=== PATIENT | male | born 1965 | race Caucasian/White ===

== ENCOUNTER 2017-08-07 06:02 | Emergency (ER) | payer MEDICAID ==
[~2017-08-07 06:02] MED LIST: AZITHROMYCIN 250 MG TAB PO SCH
[2017-08-07 06:09] VITALS: RESP 20; O2SAT 91
[2017-08-07] MEDS ORDERED: IPRATROPIUM/ALBUTEROL 3 ML DEYVIAL ONE (06:18)
[2017-08-07] MEDS ORDERED: predniSONE 20 MG TAB PO ONE (06:23)
--- NOTE | 2017-08-07 06:24 | EDPHY ---
H & P Stated Complaint: SOB, cough - Medical/Surgical History Hx Asthma: No Hx Chronic Respiratory Disease: No Hx Cardiac Disease: Yes Hx Renal Disease: No Hx Cirrhosis: No Hx Alcoholism: Yes Hx HIV/AIDS: No Hx Splenectomy or Spleen Trauma: No Other PMH: hepais C, hypertension, back/neck. bipolar, manic depressive, psychoaffective. alcohol abuse - Social History Smoking Status: Heavy smoker HPI/ROS: Chief Complaint: Cough, shortness of breath HPI: 52-year-old homeless male presenting with 2-3 days of worsening cough, productive of yellow to greenish sputum, occasionally red tinged. No subjective fevers or chills. He woke this morning with some difficulty breathing and feeling that he can't catch air. Does not have a history of the same. Has never been diagnosed with COPD. No chest pain. No nausea or vomiting. Has a history of a multi pack-year chronic smoking and alcohol use. ROS: 10 point Review of Systems is negative except as noted in the HPI. PMH: Hepatitis-C, schizoaffective disorder Social History: Positive smoking, daily heavy alcohol, occasional marijuana Family History: non-contributory Physical Exam: Gen: Awake, Alert, No Distress HEENT: Nose: no rhinorrhea Eyes: PERRLA, EOMI Mouth: Moist mucosa Neck: Supple, no JVD Chest: nontender, diffuse expiratory wheezing with diminished breath sounds, no focal rales or rhonchi Heart: S1, S2 normal, no murmur Abd: Soft, non-tender, no guarding Back: no CVA tenderness, no midline tenderness Ext: no edema, non-tender Skin: no rash Neuro: CN II-XII intact, Sensation grossly intact, Strength 5/5 in bilateral upper and lower extremities (Aquiles Radford) Constitutional: Initial Vital Signs Temperature (C) 36.9 C 08/07/17 06:06 Heart Rate 103 H 08/07/17 06:06 Respiratory Rate 20 08/07/17 06:06 Blood Pressure 171/103 H 08/07/17 06:06 O2 Sat (%) 91 L 08/07/17 06:06 O2 Delivery Mode Room Air Allergies/Adverse Reactions: codeine Allergy (Verified 08/07/17 06:05) ziprasidone [From Geodon] Allergy (Verified 08/07/17 06:05) Home Medications: Medication Instructions Recorded Azithromycin [Zithromax] 250 mg PO DAILY #6 tab 08/07/17 Inderal LA 08/07/17 Medical Decision Making ED Course/Re-evaluation: 52-year-old male with likely undiagnosed COPD presenting with wheezing and cough. Will get a chest x-ray to rule out infiltrate. I am giving prednisone and a DuoNeb. Patient is satting 91% on room air. Chest x-ray consistent with bronchitis with a questionable right lower lobe infiltrate. I have ordered doxycycline 100 mg for him. Patient has received his steroids and is in process with DuoNeb. He is signed out Dr. Haskins pending re-evaluation after his steroids have had an effect. (Aquiles Radford) Other Provider: Patient was signed out to me by Dr. Radford at 0700, with suspicion for bronchitis /COPD. Patient was treated with steroids, doxy and neb. On re-evaluation at 0820, patient is comfortable and maintaining pulse ox of 92% on RA with ambulation. I think he is safe for outpatient management. He may benefit from further steroids, but given history of bipolar and schizo, I am hesitant to provide a burst without close observation, which he is unlikely to be able to manage. (Hill Haskins) - Data Points Medications Given: Discontinued Medications Albuterol/Ipratropium (Duoneb) 3 ml IH EDNOW ONE Stop: 08/07/17 06:28 Last Admin: 08/07/17 06:29 Dose: 3 ml Doxycycline Hyclate (Doxycycline Hyclate) 100 mg PO EDNOW ONE PRN Reason: Protocol Stop: 08/07/17 06:45 Last Admin: 08/07/17 06:56 Dose: 100 mg Prednisone (Prednisone) 60 mg PO EDNOW ONE Stop: 08/07/17 06:24 Last Admin: 08/07/17 06:28 Dose: 60 mg Departure - Departure Disposition: Home, Routine, Self-Care Clinical Impression: Acute bronchitis Condition: Good Instructions: Acute Bronchitis (ED) Additional Instructions: Follow-up with your primary doctor within 72 hours. Return to the ED for fever , shortness of breath, chest pain or other concerns. Referrals: NONE *PRIMARY CARE P,. [Primary Care Provider] - As per Instructions Prescriptions: Azithromycin [Zithromax] 250 mg PO DAILY #6 tab
[2017-08-07] MEDS ORDERED: IPRATROPIUM/ALBUTEROL 3 ML DEYVIAL IH ONE (06:27)
[2017-08-07] MEDS ORDERED: DOXYCYCLINE HYCLATE 100 MG CAP/TAB PO ONE (06:44)
[2017-08-07 08:45] VITALS: BP 163/111; PULSE 93; TEMP 98.8
== END 2017-08-07 08:50 | disposition home or self-care (01) ==
DX: J20.9 Acute bronchitis, unspecified (principal); I10 Essential (primary) hypertension; F17.200 Nicotine dependence, unspecified, uncomplicated

== ENCOUNTER 2017-08-16 03:47 | Emergency (ER) | payer MEDICAID ==
--- NOTE | 2017-08-16 03:53 | EDPHY ---
H & P Stated Complaint: Epistaxis HPI/ROS: HPI The patient presents with nose bleed which began earlier tonight. He was brought in by ambulance after being found outside of the [facility] with a nose bleed which awoke him from sleep. It has been constant, dripping blood for the last 1 hr without any clots. He has no prior history of similar. He does admit to drinking alcohol tonight. He does not have any pain.. REVIEW OF SYSTEMS Constitutional: No fever, no chills. Eyes: No discharge. ENT: No sore throat. Cardiovascular: No chest pain, no palpitations. Respiratory: No cough, no shortness of breath. Gastrointestinal: No abdominal pain, no vomiting. Genitourinary: No hematuria. Musculoskeletal: No back pain. Skin: No rashes. Neurological: No headache. PMHx: Hypertension, hepatitis-C, schizoaffective disorder Soc Hx: Homelessness, alcohol abuse PHYSICAL General Appearance: Alert, no distress Eyes: Pupils equal and round no pallor or injection ENT, Mouth: Mucous membranes moist, bilateral epistaxis which is minimal at this point Respiratory: There are no retractions, lungs are clear to auscultation Cardiovascular: Regular rate and rhythm Gastrointestinal: Abdomen is soft and non-tender, no masses, bowel sounds normal Neurological: A&O, moves all extremities Skin: Warm and dry, no rashes Musculoskeletal: Neck is supple non tender Extremities: symmetrical, full range of motion Psychiatric: Patient is oriented X 3, there is no agitation Source: Patient, EMS Exam Limitations: No limitations - Medical/Surgical History Hx Asthma: No Hx Chronic Respiratory Disease: No Hx Cardiac Disease: Yes Hx Renal Disease: No Hx Cirrhosis: No Hx Alcoholism: Yes Hx HIV/AIDS: No Hx Splenectomy or Spleen Trauma: No Other PMH: hepais C, hypertension, back/neck. bipolar, manic depressive, psychoaffective. alcohol abuse - Social History Smoking Status: Heavy smoker Constitutional: Initial Vital Signs Temperature (C) 36.7 C 08/16/17 04:03 Heart Rate 106 H 08/16/17 04:03 Respiratory Rate 18 08/16/17 04:03 Blood Pressure 126/102 H 08/16/17 04:03 O2 Sat (%) 92 08/16/17 04:03 O2 Delivery Mode Room Air Allergies/Adverse Reactions: codeine Allergy (Verified 08/16/17 04:06) ziprasidone [From Geodon] Allergy (Verified 08/16/17 04:06) Home Medications: Medication Instructions Recorded Inderal LA 08/07/17 HCTZ (*) 08/16/17 Prozac 10 MG (*) 08/16/17 Seroquel 08/16/17 Medical Decision Making Differential Diagnosis: 52-year-old homeless gentleman with past medical history of hypertension, hepatitis-C presents brought in by ambulance for bilateral epistaxis over the last 1 hr which is fairly minimal and controlled currently. Nasal clamps were placed upon patient's arrival. Vital signs were normal. I was able to visualize his anterior naris and there is no active bleeding. I cannot exactly localize is where the bleeding is coming from because of some dried blood in his nose. I suspect anterior epistaxis. He was given Afrin and nasal clamps were placed. His bleeding stopped. However, while in the waiting room the bleeding recurred. As he returned back to the emergency department. Nasal packing with TXA was placed. This state in place for about 30 min and then was removed. After this he had no ongoing bleeding. He will be discharged home. Hemoglobin was checked and was unremarkable. - Data Points Laboratory Results: 08/16/17 04:24 POC Hgb 11.9 gm/dL L gm/dL (13.7-17.5) POC Hct 35 % L % (40-51) POC Sodium 140 mEq/L mEq/L (134-144) POC Potassium 3.4 mEq/L mEq/L (3.3-5.0) POC Chloride 99 mEq/L mEq/L (97-110) POC BUN 11 mg/dL mg/dL (7-23) POC Creatinine 0.9 mg/dL mg/dL (0.7-1.3) POC Glucose 146 mg/dL H mg/dL (70-100) Medications Given: Discontinued Medications Oxymetazoline HCl (Afrin Nasal [place]) 2 sprays EACHNARE EDNOW ONE Stop: 08/16/17 04:11 Last Admin: 08/16/17 04:13 Dose: 2 sprays Tranexamic Acid (Cyklokapron) 500 mg TP EDNOW ONE Stop: 08/16/17 04:57 Last Admin: 08/16/17 05:08 Dose: 500 mg Point of Care Test Results: 08/16/17 04:24 POC Sodium 140 POC Potassium 3.4 POC Chloride 99 POC BUN 11 POC Creatinine 0.9 POC Glucose 146 H Departure - Departure Disposition: Home, Routine, Self-Care Clinical Impression: Acute anterior epistaxis Condition: Good Instructions: Nosebleed (ED) Additional Instructions: I recommend that you use Vaseline inside of your nose to help keep it moist and prevent any nose bleeds. If it bleeds again I would recommend using the Afrin and a nasal clamp. Referrals: [facility],. [Clinic] - As per Instructions
[2017-08-16] MEDS ORDERED: OXYMETAZOLINE 30 ML NASAL SPRAY EACHNARE ONE (04:10)
[2017-08-16 04:44] VITALS: RESP 16; TEMP 98.2
[2017-08-16] MEDS ORDERED: TRANEXAMIC ACID 1,000 MG/10 ML VIAL TP ONE (04:56)
[2017-08-16 06:11] VITALS: BP 124/74; PULSE 74; O2SAT 96
== END 2017-08-16 06:00 | disposition home or self-care (01) ==
LOC: EDUNIT#
DX: R04.0 Epistaxis (principal); I10 Essential (primary) hypertension; F17.200 Nicotine dependence, unspecified, uncomplicated
CPT/HCPCS: 82947-QW

== ENCOUNTER 2017-08-20 11:54 | Emergency (ER) | payer MEDICAID ==
[2017-08-20 12:01] VITALS: BP 149/94; PULSE 97; RESP 18; TEMP 99; O2SAT 93
[2017-08-20 12:35] LABS: PLATELET COUNT 96 10^3/uL (150-400)
[2017-08-20] MEDS ORDERED: SILVER NITRATE APPLICATOR 1 APPL TP ONE (12:37)
--- NOTE | 2017-08-20 12:47 | EDPHY ---
H & P Stated Complaint: Epistaxis HPI/ROS: Chief complaint: Nose bleed History of present illness: This is a 52-year-old male who presents to the emergency department for evaluation of a nosebleed. Reports the onset of symptoms a few hours prior to arrival. He states bleeding comes from the left nostril. He denies precipitating factors. He denies alleviating factors. He has tried to pinch off the nose. He was seen a week or so ago for similar in this emergency room. He states he generally does not have a history of nose bleeds and is concerned there is something more going on. He denies other associated signs or symptoms including no cold symptoms, no headache, no lightheadedness or dizziness, no other abnormal bruising or bleeding. - Personal History Current Tetanus Diphtheria and Acellular Pertussis (TDAP): Yes Tetanus Vaccine Date: 2010 - Medical/Surgical History Hx Asthma: No Hx Chronic Respiratory Disease: No Hx Cardiac Disease: Yes Hx Renal Disease: No Hx Cirrhosis: No Hx Alcoholism: Yes Hx HIV/AIDS: No Hx Splenectomy or Spleen Trauma: No Other PMH: hepais C, hypertension, back/neck. bipolar, manic depressive, psychoaffective. alcohol abuse - Social History Smoking Status: Heavy smoker - Physical Exam Exam: General: Alert, nontoxic Eyes: PERRLA ENT: No active bleeding from the nostrils. The left nare is irritated at Kiesselbach's plexus region, again no active bleeding from it. Cardiac: Regular rate and rhythm Respiratory: Lungs clear to auscultation bilaterally Skin: No abnormal bruising or bleeding noted Constitutional: Initial Vital Signs Temperature (C) 37.2 C 08/20/17 11:59 Heart Rate 97 08/20/17 11:59 Respiratory Rate 18 08/20/17 11:59 Blood Pressure 149/94 H 08/20/17 11:59 O2 Sat (%) 93 08/20/17 11:59 O2 Delivery Mode Room Air Allergies/Adverse Reactions: codeine Allergy (Verified 08/16/17 04:06) ziprasidone [From Geodon] Allergy (Verified 08/16/17 04:06) Home Medications: Medication Instructions Recorded Inderal LA 08/07/17 HCTZ (*) 08/16/17 Prozac 10 MG (*) 08/16/17 Seroquel 08/16/17 Medical Decision Making Procedures: Procedure: Epistaxis control. After verbal consent was obtained. The anterior epistaxis was identified. The patient was treated with Yoel-Synephrine, chemical cautery at Kiesselbach's plexus and placement of Merocel. Following the procedure the patient was re- examined and the bleeding was well controlled. The patient tolerated the procedure well. The procedure was performed by myself. ED Course/Re-evaluation: Patient seen under the supervision of my secondary supervising physician Dr. Esteban Peace. Patient presents to the emergency department for a nose bleed. He reports he is bleeding out of his left nostril. Yoel-Synephrine was instilled before I saw patient. There was no active bleeding when I saw patient. Patient is concerned for an underlying issue, blood studies were obtained, patient does have a thrombocytopenia. Kiesselbach's plexus was cauterized as it appeared to be the site of bleeding and patient was packed with Merocel. He was observed with no rebleeding. He is discharged. Home care is discussed. Return precautions are given. Differential Diagnosis: Included but not limited to anterior epistaxis, posterior epistaxis, coagulopathy - Data Points Laboratory Results: Laboratory Results 08/20/17 11:58 08/20/17 11:58 08/20/17 08/20/17 08/20/17 11:58 11:58 11:58 WBC 5.32 10^3/uL 10^3/uL (3.80-9.50) RBC 3.20 10^6/uL L 10^6/uL (4.40-6.38) Hgb 12.0 g/dL L g/dL (13.7-17.5) Hct 34.0 % L % (40.0-51.0) MCV 106.3 fL H fL (81.5-99.8) MCH 37.5 pg H pg (27.9-34.1) MCHC 35.3 g/dL g/dL (32.4-36.7) RDW 12.5 % % (11.5-15.2) Plt Count 96 10^3/uL L 10^3/uL (150-400) MPV 11.2 fL fL (8.7-11.7) Neut % (Auto) 67.3 % % (39.3-74.2) Lymph % (Auto) 22.9 % % (15.0-45.0) [place] % (Auto) 7.9 % % (4.5-13.0) Eos % (Auto) 0.6 % % (0.6-7.6) Baso % (Auto) 1.1 % % (0.3-1.7) Nucleat RBC Rel Count 0.0 % % (0.0-0.2) Absolute Neuts (auto) 3.58 10^3/uL 10^3/uL (1.70-6.50) Absolute Lymphs (auto) 1.22 10^3/uL 10^3/uL (1.00-3.00) Absolute Monos (auto) 0.42 10^3/uL 10^3/uL (0.30-0.80) Absolute Eos (auto) 0.03 10^3/uL 10^3/uL (0.03-0.40) Absolute Basos (auto) 0.06 10^3/uL 10^3/uL (0.02-0.10) Absolute Nucleated RBC 0.00 10^3/uL 10^3/uL (0-0.01) Immature Gran % 0.2 % % (0.0-1.1) Immature Gran # 0.01 10^3/uL 10^3/uL (0.00-0.10) PT 13.9 SEC SEC (12.0-15.0) INR 1.05 (0.83-1.16) APTT 30.6 SEC SEC (23.0-38.0) Sodium 142 mEq/L mEq/L (134-144) Potassium 3.6 mEq/L mEq/L (3.5-5.2) Chloride 103 mEq/L mEq/L (97-110) Carbon Dioxide 26 mEq/l mEq/l (22-31) Anion Gap 13 mEq/L mEq/L (8-16) BUN 8 mg/dL mg/dL (7-23) Creatinine 0.7 mg/dL mg/dL (0.7-1.3) Estimated GFR > 60 Glucose 115 mg/dL H mg/dL (70-100) Calcium 8.5 mg/dL mg/dL (8.5-10.4) Medications Given: Discontinued Medications Silver Nitrate/Potassium Nitrate (Silver Nitrate Applicator) 1 each TP EDNOW ONE Stop: 08/20/17 12:38 Last Admin: 08/20/17 12:39 Dose: 1 each Departure - Departure Disposition: Against Medical Advice Clinical Impression: Epistaxis, Thrombocytopenia Condition: Good Instructions: Nosebleed (ED) Additional Instructions: Follow-up with ENT for continued evaluation and care Place Vaseline into the nose multiple times daily as discussed You can also use a nasal saline spray Packing to be removed in 2 days Symptoms worsen or new symptoms develop return to the emergency room for recheck Referrals: NONE *PRIMARY CARE P,. [Primary Care Provider] - As per Instructions [facility],. [Clinic] - As per Instructions Silvio Chávez MD [Medical Doctor] - As per Instructions
[2017-08-20 12:49] LABS: INR 1.05 (0.83-1.16); PROTIME(PATIENT) 13.9 SEC (12.0-15.0)
== END 2017-08-20 13:31 | disposition left against medical advice (07) ==
LOC: EDUNIT#
PROC: 3E09XTZ Introduction of Destructive Agent into Nose, External Approach (ICD-10-PCS; principal; 2017-08-20)
DX: R04.0 Epistaxis (principal); D69.6 Thrombocytopenia, unspecified; F17.200 Nicotine dependence, unspecified, uncomplicated; I10 Essential (primary) hypertension

== ENCOUNTER 2017-08-20 15:16 | Emergency (ER) | payer MEDICAID ==
[2017-08-20 15:28] VITALS: TEMP 98.2
[2017-08-20] MEDS ORDERED: OXYMETAZOLINE 30 ML NASAL SPRAY ONE (16:35)
--- NOTE | 2017-08-20 16:50 | EDPHY ---
H & P Stated Complaint: Nose bleed - Personal History Current Tetanus/Diphtheria Vaccine: Yes Tetanus Vaccine Date: 2010 - Medical/Surgical History Hx Asthma: No Hx Chronic Respiratory Disease: No Hx Diabetes: No Hx Cardiac Disease: Yes Hx Renal Disease: No Hx Cirrhosis: No Hx Alcoholism: Yes Hx HIV/AIDS: No Hx Splenectomy or Spleen Trauma: No Other PMH: hepais C, hypertension, back/neck. bipolar, manic depressive, psychoaffective. alcohol abuse - Social History Smoking Status: Heavy smoker HPI/ROS: Chief complaint: Nose bleed History of present illness: This is a 52-year-old male who presents to the emergency department with EMS for nose bleed. He was seen just a few hours ago by myself. At that time he had a nosebleed on the left side that was tree. Bleeding appeared to have resolved. However now he is having significant bleeding from the right side. No other associated signs or symptoms. (Noah Lowry) - Physical Exam Exam: General: Alert, nontoxic ENT: Tympanic membranes, external auditory canals, external ears and surrounding soft tissue including over the mastoids are unremarkable. There is bleeding from the right naris. Packing in place in left naris. Oropharynx is not injected. There is no edema. There is no exudate. There is no asymmetry. The uvula is midline. No elevation of the tongue. There is no hoarseness, no drooling, no trismus, no stridor. Skin: No rashes. (Noah Lowry) Constitutional: Initial Vital Signs Temperature (C) 36.8 C 08/20/17 15:27 Heart Rate 91 08/20/17 15:27 Respiratory Rate 18 08/20/17 15:27 Blood Pressure 105/94 H 08/20/17 15:27 O2 Sat (%) 93 08/20/17 15:27 O2 Delivery Mode Room Air Allergies/Adverse Reactions: codeine Allergy (Verified 08/20/17 15:29) ziprasidone [From Geodon] Allergy (Verified 08/20/17 15:29) Home Medications: Medication Instructions Recorded Inderal LA 08/07/17 HCTZ (*) 08/16/17 Prozac 10 MG (*) 08/16/17 Seroquel 08/16/17 Medical Decision Making Procedures: Procedure: Epistaxis control. After verbal consent was obtained. Blood at both nares noted. The patient was treated with Yoel-Synephrine and bilateral 7.5 cm rhino rocket. Following the procedure the patient was re-examined and the bleeding was well controlled. The patient tolerated the procedure well. The procedure was performed by myself. ( Noah Lowry) ED Course/Re-evaluation: Patient seen under the supervision of my secondary supervising physician Dr. Silvio Whaley. Patient returns to the ER for nose bleed. It has been difficult to control. I have ultimately packed with bilateral 7.5 cm rhinorockets and bleeding appears controlled. Patient is observed for over an hour with no recurrence of bleeding. I have consulted with ALLYSON Bustamante. He is in agreement with plan. Patient will be discharged. He is to return in two days for removal of packing. Return precautions given. (Noah Lowry) Did not see this patient while he was in the emergency department. However his care was discussed with the PA while the patient was in the department. I agree with treatment plan and management. I am the secondary supervising physician (Silvio Whaley) Differential Diagnosis: Included but not limited to antior epistaxis, posterior epistaxis, coagulopathy (Noah Lowry) - Data Points Medications Given: Discontinued Medications Hydrocodone Bitart/Acetaminophen ([place] 5/325) 2 tab PO EDNOW ONE Stop: 08/20/17 17:53 Last Admin: 08/20/17 17:55 Dose: 2 tab Departure - Departure Disposition: Home, Routine, Self-Care Clinical Impression: Epistaxis Condition: Good Instructions: Nosebleed (ED) Additional Instructions: Follow-up with ENT for continued evaluation and care Packing to be removed in 2 days If symptoms worsen or new symptoms develop return to the emergency room for recheck Referrals: NONE *PRIMARY CARE P,. [Primary Care Provider] - As per Instructions Silvio Chávez MD [Medical Doctor] - As per Instructions
[2017-08-20] MEDS ORDERED: HYDROCODONE/APAP 5/325 TAB ONE (17:47)
[2017-08-20] MEDS ORDERED: HYDROCODONE/APAP 5/325 TAB PO ONE (17:52)
[2017-08-20 18:34] VITALS: BP 133/64; PULSE 97; RESP 16; O2SAT 98
== END 2017-08-20 18:32 | disposition home or self-care (01) ==
LOC: EDUNIT#
PROC: 3E09XGC Introduction of Other Therapeutic Substance into Nose, External Approach (ICD-10-PCS; principal; 2017-08-20)
DX: R04.0 Epistaxis (principal); I10 Essential (primary) hypertension; F17.200 Nicotine dependence, unspecified, uncomplicated

== ENCOUNTER 2017-09-30 00:51 | Emergency (ER) | payer MEDICAID ==
[2017-09-30] MEDS ORDERED: IPRATROPIUM/ALBUTEROL 3 ML DEYVIAL IH ONE (00:55)
[2017-09-30 00:57] VITALS: RESP 16; TEMP 99.9
[2017-09-30] MEDS ORDERED: ACETAMINOPHEN 500 MG TAB ONE (00:58)
[2017-09-30] MEDS ORDERED: ACETAMINOPHEN 500 MG TAB PO ONE (00:59)
[2017-09-30] MEDS ORDERED: IBUPROFEN 600 MG TAB PO ONE (01:02)
--- NOTE | 2017-09-30 01:02 | CPEKG ---
Heart Rate: 109 RR Interval: 550 P-R Interval: 128 QRSD Interval: 104 QT Interval: 344 QTC Interval: 464 P [place]: 70 QRS [place]: 44 T Wave [place]: 51 EKG Severity - OTHERWISE NORMAL ECG - EKG Impression: SINUS TACHYCARDIA Electronically Signed By: Aida Gunn 30-Sep-2017 06:04:24
[2017-09-30] MEDS ORDERED: NS 1,000 ML IV ONE (01:04)
[2017-09-30 01:09] LABS: PLATELET COUNT 150 10^3/uL (150-400)
[2017-09-30] MEDS ORDERED: ONDANSETRON 4MG PREPACK#2 BTL TAKEHOME ONE (03:49)
[2017-09-30] MEDS ORDERED: ALBUTEROL INH PREPACK MDI TAKEHOME ONE (04:02)
[2017-09-30] MEDS ORDERED: BENZONATATE 100 MG CAP PO ONE (04:02)
--- NOTE | 2017-09-30 04:02 | EDPHY ---
H & P Stated Complaint: resp diff Source: Patient, EMS - Personal History Current Tetanus/Diphtheria Vaccine: Unsure Current Tetanus Diphtheria and Acellular Pertussis (TDAP): Unsure Tetanus Vaccine Date: 2010 - Medical/Surgical History Hx Asthma: No Hx Chronic Respiratory Disease: No Hx Diabetes: No Hx Cardiac Disease: Yes Hx Renal Disease: No Hx Cirrhosis: No Hx Alcoholism: Yes Hx HIV/AIDS: No Hx Splenectomy or Spleen Trauma: No Other PMH: hepais C, hypertension, back/neck. bipolar, manic depressive, psychoaffective. alcohol abuse - Social History Smoking Status: Heavy smoker Time Seen by Provider: 09/30/17 00:54 HPI/ROS: HPI The patient presents brought in by ambulance for cough and chest pain. The patient says he has been sick for about a week with cough and chest pain. He feels slightly short of breath. He is a heavy smoker but is only been able to smoke a few cigarettes a day currently. He says the pain is present only when he coughs that is is relieved with rest. It is achy in nature. He has had a nonproductive cough. He also reports rhinorrhea. REVIEW OF SYSTEMS Constitutional: Subjective fever Eyes: No discharge. ENT: No sore throat. Cardiovascular: Positive for chest pain, no palpitations. Respiratory: See HPI Gastrointestinal: No abdominal pain, no vomiting. Genitourinary: No hematuria. Musculoskeletal: No back pain. Skin: No rashes. Neurological: No headache. PMHx: Questionable underlying COPD, hypertension, hepatitis-C, bipolar disorder Soc Hx: Homeless PHYSICAL General Appearance: Alert, no distress Eyes: Pupils equal and round no pallor or injection ENT, Mouth: Mucous membranes moist Respiratory: There are no retractions, lungs are clear to auscultation Cardiovascular: Regular rate and rhythm Gastrointestinal: Abdomen is soft and non-tender, no masses, bowel sounds normal Neurological: A&O, moves all extremities Skin: Warm and dry, no rashes Musculoskeletal: Neck is supple non tender Extremities: symmetrical, full range of motion Psychiatric: Patient is oriented X 3, there is no agitation (Riguzzi,Aida) Constitutional: Initial Vital Signs Temperature (C) 37.7 C 09/30/17 00:53 Heart Rate 100 09/30/17 00:53 Respiratory Rate 16 09/30/17 00:53 Blood Pressure 154/107 H 09/30/17 00:53 O2 Sat (%) 87 L 09/30/17 00:53 O2 Delivery Mode Room Air Allergies/Adverse Reactions: codeine Allergy (Verified 08/20/17 15:29) ziprasidone [From Geodon] Allergy (Verified 08/20/17 15:29) Home Medications: Medication Instructions Recorded Inderal LA 08/07/17 HCTZ (*) 08/16/17 Prozac 10 MG (*) 08/16/17 Seroquel 08/16/17 Medical Decision Making - Diagnostics EKG Interpretation: EKG: Complete interpretation has been separately recorded in the [facility] archive. Summary impression: Normal sinus rhythm (Aida Gunn) Imaging Results: Chest x-ray two view shows peribronchial thickening, no infiltrates, interpreted by me, radiology interpretation is pending. (Aida Gunn) Differential Diagnosis: This is a 52-year-old homeless man with history of heavy smoking, possible underlying COPD, hypertension, hepatitis-C, bipolar disorder who presents brought in by ambulance for cough and chest pain. Here on arrival, he is febrile, and slightly hypoxic. He was given a DuoNeb with improvement in his respirations. Chest x-ray was performed and showed peribronchial thickening with no obvious infiltrate. Labs were drawn and RSV was positive. Other labs were unremarkable. He was given antipyretics for his fever this improved his symptoms significantly. He will be discharged home with albuterol inhaler and Tessalon Perles. As I feel his symptoms are likely related to RSV with bronchitis. He is comfortable with this plan. Differential diagnoses considered include ACS, PE, pneumonia, influenza. ( Aida Gunn) Other Provider: I received a call from the radiologist at 0830 regarding this patient who was discharged several hours ago. CXR apparently shows bilateral PNA. I reviewed the chart but document is currently incomplete. Vitals do not reveal hypoxia. I asked the charge nurse to call the patient and inform him of the CXR result and call in azithromycin. Unfortunately, the patient is transient and did not list any contact information. I will pass this information onto the case mgr. (Hill Haskins) - Data Points Laboratory Results: Laboratory Results 09/30/17 00:54 09/30/17 01:00 Medications Given: Discontinued Medications Acetaminophen (Tylenol) 1,000 mg PO EDNOW ONE Stop: 09/30/17 01:00 Last Admin: 09/30/17 01:14 Dose: Not Given Albuterol Sulfate (Proventil Inh Prepack) 1 mdi TAKEHOME EDNOW ONE Stop: 09/30/17 04:03 Last Admin: 09/30/17 04:11 Dose: 1 mdi Albuterol/Ipratropium (Duoneb) 3 ml IH EDNOW ONE Stop: 09/30/17 00:56 Last Admin: 09/30/17 01:10 Dose: 3 ml Benzonatate (Tessalon Pearles) 200 mg PO EDNOW ONE Stop: 09/30/17 04:03 Last Admin: 09/30/17 04:10 Dose: 200 mg Sodium Chloride (Ns) 1,000 mls @ 0 mls/hr IV EDNOW ONE; Wide Open PRN Reason: Protocol Stop: 09/30/17 01:05 Last Admin: 09/30/17 01:12 Dose: 1,000 mls Ibuprofen (Motrin) 600 mg PO EDNOW ONE Stop: 09/30/17 01:03 Last Admin: 09/30/17 01:10 Dose: 600 mg Departure - Departure Disposition: Home, Routine, Self-Care Clinical Impression: Chest pain, Cough, RSV infection Condition: Good Instructions: Respiratory Syncytial Virus (ED) Referrals: Bharti Nielsen MD [Doctor of Osteopathy] - As per Instructions
[2017-09-30 04:26] VITALS: BP 109/72; PULSE 97; O2SAT 95
== END 2017-09-30 04:26 | disposition home or self-care (01) ==
LOC: EDUNIT#
DX: R07.9 Chest pain, unspecified (principal); B97.4 Respiratory syncytial virus as the cause of diseases classified elsewhere; I10 Essential (primary) hypertension; F17.210 Nicotine dependence, cigarettes, uncomplicated; E86.9 Volume depletion, unspecified

== ENCOUNTER 2017-09-30 18:42 | Inpatient (IN) | payer MEDICAID ==
[2017-09-30] MEDS ORDERED: IPRATROPIUM/ALBUTEROL 3 ML DEYVIAL IH ONE (19:01)
--- NOTE | 2017-09-30 19:11 | EDPHY ---
General Narrative: CHIEF COMPLAINT: Cough, "I can't get better sleeping in the cold" HISTORY OF PRESENT ILLNESS: Patient complains of "I can't get better sleep and in the cold, I need to be admitted." He reports ongoing cough or worsening symptoms. They originally started 2 days ago. He was seen here in this department late last night. He is discharged home with a diagnosis of RSV. Chest x-ray reportedly came back as a positive result for pneumonia this morning. Attempts were made to contact him with a unable to do so. He reports being discharged home with albuterol inhaler and "2 cough pills." He is taking medications with no improvement. He says that he is not getting better because he is sleeping out in the cold and feels as though this is worsening his symptoms. No chest pain but does have a painful, productive cough. He will not provide any other information to me otherwise. No other associated complaints or modifying factors obtainable REVIEW OF SYSTEMS: Ten systems reviewed and are negative unless otherwise noted in the HPI PCP: [facility]" SPECIALISTS: None PAST MEDICAL HISTORY: Denies PAST SURGICAL HISTORY: No recent surgeries SOCIAL HISTORY: Daily alcohol and tobacco use. Homeless FAMILY HISTORY: Noncontributory EXAMINATION General Appearance: Alert, no distress, unkempt Head: normocephalic, atraumatic Eyes: Pupils equal and round, no conjunctival pallor or injection ENT, Mouth: Mucous membranes moist. Airway is patent Neck: Normal inspection, supple, non-tender Respiratory: Mild rhonchi and expiratory wheezing, left greater than right. My consolidation in the left lower lobe. No retractions or distress. Cardiovascular: Tachycardic rate of 106 beats per minute. Regular rhythm. No murmur Gastrointestinal: Abdomen is soft and nontender Back: non-tender, no bony abnormalities Neurological: A&O, nonfocal, normal gait. Strength is symmetric in all 4 limbs. Skin: Grossly intact. Warm and dry, no rash. No petechiae or purpura Extremities: Nontender, no pedal edema. symmetric range of motion of the extremities. Psychiatric: Mood and affect normal DIFFERENTIAL DIAGNOSES: Including but not limited to community-acquired pneumonia, sepsis, RSV pneumonitis, bronchitis MDM: 7:11 p.m. Cough with worsening symptoms over the past 24 hr. The patient has been on albuterol but no other medications. There is documentation that the chest x- ray was read as pneumonia early this morning but there was no way to contact the patient despite attempts to do so. Thus he has not been on antibiotics today. RSV was positive. Influenza negative. He has mild tachycardia with a leukocytosis last night. Thus I have ordered a septic work. He is in no acute distress with vital signs stable other than mild tachycardia. I have also ordered a nebulizer treatment. 7:45 p.m. CBC reveals no leukocytosis. It is actually improved from his visit last night. Chest x-ray does show a mild left lower lobe pneumonia to me, without the aide of the radiologist. Lactic acid is within normal limits. Remainder of labs are pending. 8:10 p.m. Chest x-ray has been read by radiologist as left lower lobe pneumonia. There is no evidence of sepsis, but the patient does remain hypoxic. He ranges from 85-88% on room air and this is while resting. He will thus require admission to the hospital for supplemental nasal oxygen. He remains tachycardic but not tachypneic. He is not febrile. He is not hypotensive. He has no leukocytosis. Treating with Rocephin and Zithromax. I will discuss with hospitalist. 8:15 p.m. Case discussed with Dr. Noriega. He requests admission to his service, medical- surgical bed, observation status. The patient has been admitted in stable condition. SUPERVISION: Patient was independently examined, but I discussed the case with my secondary supervising physician Dr. Hernadez - Diagnostics Imaging Results: Imaging Impressions Chest X-Ray 09/30/17 19:08 Impression: 1. Persistent findings compatible with left lower lobe pneumonia and less prominent right lower lobe atelectasis or pneumonia. 2. Airways disease that could reflect associated bronchitis or viral pneumonitis. - History Smoking Status: Heavy smoker - Objective Vital Signs: Initial Vital Signs Temperature (C) 99.1 F 09/30/17 18:48 Heart Rate 108 H 09/30/17 18:48 Respiratory Rate 16 09/30/17 18:48 Blood Pressure 172/95 H 09/30/17 18:48 O2 Sat (%) 95 09/30/17 18:48 O2 Delivery Mode Room Air Allergies/Adverse Reactions: codeine Allergy (Verified 08/20/17 15:29) ziprasidone [From Geodon] Allergy (Verified 08/20/17 15:29) Home Medications: Medication Instructions Recorded Inderal LA 08/07/17 HCTZ (*) 08/16/17 Prozac 10 MG (*) 08/16/17 Seroquel 08/16/17 Laboratory Results: Laboratory Results 09/30/17 19:28 09/30/17 19:28 09/30/17 09/30/17 09/30/17 19:28 19:28 19:28 WBC RBC Hgb Hct MCV MCH MCHC RDW Plt Count MPV Neut % (Auto) Lymph % (Auto) [place] % (Auto) Eos % (Auto) Baso % (Auto) Nucleat RBC Rel Count Absolute Neuts (auto) Absolute Lymphs (auto) Absolute Monos (auto) Absolute Eos (auto) Absolute Basos (auto) Absolute Nucleated RBC Immature Gran % Immature Gran # PT 15.2 SEC H SEC (12.0-15.0) INR 1.18 H (0.83-1.16) APTT 30.3 SEC SEC (23.0-38.0) VBG Lactic Acid 1.3 mmol/L mmol/L (0.7-2.1) Sodium 133 mEq/L L mEq/L (135-145) Potassium 3.8 mEq/L mEq/L (3.5-5.2) Chloride 99 mEq/L mEq/L (97-110) Carbon Dioxide 21 mEq/l L mEq/l (22-31) Anion Gap 13 mEq/L mEq/L (8-16) BUN 5 mg/dL L mg/dL (7-23) Creatinine 0.5 mg/dL L mg/dL (0.7-1.3) Estimated GFR > 60 Glucose 110 mg/dL H mg/dL (70-100) Calcium 7.8 mg/dL L mg/dL (8.5-10.4) Total Bilirubin 2.1 mg/dL H mg/dL (0.1-1.4) Conjugated Bilirubin 1.7 mg/dL H mg/dL (0.0-0.5) Unconjugated Bilirubin 0.4 mg/dL mg/dL (0.0-1.1) Ethyl Alcohol 279 mg/dL H mg/dL (0-10) 09/30/17 19:28 WBC 8.69 10^3/uL 10^3/uL (3.80-9.50) RBC 3.11 10^6/uL L 10^6/uL (4.40-6.38) Hgb 11.8 g/dL L g/dL (13.7-17.5) Hct 32.4 % L % (40.0-51.0) MCV 104.2 fL H fL (81.5-99.8) MCH 37.9 pg H pg (27.9-34.1) MCHC 36.4 g/dL g/dL (32.4-36.7) RDW 11.8 % % (11.5-15.2) Plt Count 114 10^3/uL L 10^3/uL (150-400) MPV 10.2 fL fL (8.7-11.7) Neut % (Auto) 80.1 % H % (39.3-74.2) Lymph % (Auto) 10.7 % L % (15.0-45.0) Bradley % (Auto) 8.4 % % (4.5-13.0) Eos % (Auto) 0.0 % L % (0.6-7.6) Baso % (Auto) 0.3 % % (0.3-1.7) Nucleat RBC Rel Count 0.0 % % (0.0-0.2) Absolute Neuts (auto) 6.96 10^3/uL H 10^3/uL (1.70-6.50) Absolute Lymphs (auto) 0.93 10^3/uL L 10^3/uL (1.00-3.00) Absolute Monos (auto) 0.73 10^3/uL 10^3/uL (0.30-0.80) Absolute Eos (auto) 0.00 10^3/uL L 10^3/uL (0.03-0.40) Absolute Basos (auto) 0.03 10^3/uL 10^3/uL (0.02-0.10) Absolute Nucleated RBC 0.00 10^3/uL 10^3/uL (0-0.01) Immature Gran % 0.5 % % (0.0-1.1) Immature Gran # 0.04 10^3/uL 10^3/uL (0.00-0.10) PT INR APTT VBG Lactic Acid Sodium Potassium Chloride Carbon Dioxide Anion Gap BUN Creatinine Estimated GFR Glucose Calcium Total Bilirubin Conjugated Bilirubin Unconjugated Bilirubin Ethyl Alcohol Medications Given: Discontinued Medications Albuterol/Ipratropium (Duoneb) 3 ml IH EDNOW ONE Stop: 09/30/17 19:02 Last Admin: 09/30/17 19:50 Dose: 3 ml Azithromycin (Zithromax) 500 mg PO EDNOW ONE PRN Reason: Protocol Stop: 09/30/17 19:42 Last Admin: 09/30/17 19:49 Dose: 500 mg Sodium Chloride (Ns) 1,000 mls @ 0 mls/hr IV EDNOW ONE; Wide Open PRN Reason: Protocol Stop: 09/30/17 19:47 Last Admin: 09/30/17 19:56 Dose: 1,000 mls Departure - Departure Disposition: [facility] Inpatient Acute Clinical Impression: Cough, Tobacco dependence, Hypoxemia Community acquired pneumonia Qualifiers: Laterality: left Lung location: lower lobe of lung Qualified Code(s): J18.1 - Lobar pneumonia, unspecified organism Condition: Good Instructions: How to Stop Smoking (ED), Community Acquired Pneumonia (ED) Referrals: [facility],. [Clinic] - As per Instructions Judy Grey MD [Medical Doctor] - As per Instructions
[2017-09-30 19:35] LABS: PLATELET COUNT 114 10^3/uL (150-400)
[2017-09-30] MEDS ORDERED: AZITHROMYCIN 250 MG TAB PO ONE (19:41)
[2017-09-30] MEDS ORDERED: NS 1,000 ML IV ONE (19:46)
[2017-09-30 19:48] LABS: INR 1.18 (0.83-1.16); PROTIME(PATIENT) 15.2 SEC (12.0-15.0)
[2017-09-30] MEDS ORDERED: cefTRIAXone 1 GM in STERILE WATER INJ 10 ML IV ONE (20:12)
[2017-09-30] MEDS ORDERED: ALBUTEROL 60 PUFFS/8 GM MDI IH PRN (20:21)
[2017-09-30] MEDS ORDERED: ONDANSETRON DISINTEGRATING 4 MG TAB PO PRN (20:21)
[2017-09-30] MEDS ORDERED: ONDANSETRON 4 MG/2 ML VIAL IVP PRN (20:21)
[2017-09-30] MEDS ORDERED: BENZONATATE 100 MG CAP PO ONE (20:24)
[2017-09-30] MEDS ORDERED: guaiFENesin/CODEINE PHOS 10 ML UDCUP PO PRN (20:24)
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
[2017-09-30] MEDS ORDERED: NICOTINE POLACRILEX 2 MG GUM B PRN (21:20)
[2017-09-30] MEDS: IPRATROPIUM/ALBUTEROL 3 ML DEYVIAL IH SCH (22:02)
[2017-09-30] MEDS: LORazepam 1 MG TAB PO PRN (23:07)
[2017-09-30] MEDS: ACETAMINOPHEN 325 MG TAB PO PRN (23:08)
[2017-09-30] MEDS: guaiFENesin 600 MG TAB.ER PO SCH (23:09)
[2017-09-30] MEDS: D5W NS W/ 20 KCl/L 1,000 ML IV SCH (23:11)
[2017-10-01 05:18] LABS: PLATELET COUNT 106 10^3/uL (150-400)
[2017-10-01] MEDS: LORazepam 1 MG TAB PO PRN (05:42)
[2017-10-01] MEDS: IPRATROPIUM/ALBUTEROL 3 ML DEYVIAL IH SCH ×4 (05:44→21:55)
[2017-10-01 07:28] LABS: HIV TYPE 1 AND 2 NEGATIVE (NEGATIVE)
[2017-10-01] MEDS: cefTRIAXone 1 GM in STERILE WATER INJ 10 ML IV SCH (07:44)
[2017-10-01] MEDS: AZITHROMYCIN IV 500 MG in D5W 250 ML IV SCH (07:47)
[2017-10-01] MEDS: guaiFENesin 600 MG TAB.ER PO SCH ×2 (07:48→20:36)
[2017-10-01] MEDS: ENOXAPARIN 40 MG/0.4 ML SYR SC SCH (07:48)
--- NOTE | 2017-10-01 09:22 | HOSPPROG ---
Hospitalist Progress Note Assessment/Plan: # CAP - - will cont ctx/azith - RSV positive - cont nebs, mucinex # LE hematoma vs abscess - Dr Guido to evaluate # etOH - at risk for w/d - cont CIWA # HCV - per patient # mild hepatitis - may be d/t HCV vs etOH - recheck tomorrow # htn - start lisinopril # pressure injury, POA - wound care # anxiety - cont meds when reconciled # hypoNa - resolved Subjective: sleeping; confirms his desire for sobriety Objective: Vital Signs Temp Pulse Resp BP Pulse Ox 36.5 C 106 H 20 170/101 H 96 10/01/17 08:00 10/01/17 08:00 10/01/17 08:00 10/01/17 08:00 10/01/17 08:00 Microbiology 10/01/17 06:00 - Final Sputum, Expectorated Sputum Culture - Final Laboratory Results 10/01/17 05:01 10/01/17 05:01 09/30/17 10/01/17 10/02/17 05:59 05:59 05:59 Intake Total 1000 Balance 1000 PT 15.2 SEC (12.0-15.0) H 09/30/17 19:28 INR 1.18 (0.83-1.16) H 09/30/17 19:28 chart reviewed CXR personally reviewed - Physical Exam Constitutional: unkempt Eyes: anicteric sclera Ears, Nose, Mouth, Throat: hearing normal Cardiovascular: No edema Respiratory: no respiratory distress Gastrointestinal: No distension Genitourinary: No hancock in urethra Skin: warm Musculoskeletal: other (RLE with area of fluctuance) Neurologic: AAOx3 Psychiatric: not anxious ICD10 Worksheet Patient Problems: Problems Problem Status Onset Cough Acute Community acquired pneumonia Acute Tobacco dependence Acute Hypoxemia Acute
--- NOTE | 2017-10-01 10:17 | PDMN ---
Medical Necessity Medical necessity: est los>2mn for CAP, complicated by high risk alcoholism w/ anticipated severe etoh withdrawal, RLE pressure injury w/ possible abscess,and hyponatremia; admit for IV abx, ST to r/o aspiration, scheduled nebs, CIWA, IVF ; comorbid PTSD, homelessness, htn, DM2, hep C; per order and H&P 09/30/17
[2017-10-01] MEDS: LORazepam 2 MG/ML INJ IVP PRN ×4 (10:56→22:16)
[2017-10-01] MEDS: LISINOPRIL 20 MG TAB PO SCH (11:00)
[2017-10-01] MEDS: D5W NS W/ 20 KCl/L 1,000 ML IV SCH (11:01)
[2017-10-01] MEDS: THIAMINE HCL 500 MG in NS 250 ML IV SCH (11:01)
[2017-10-01] MEDS: NICOTINE 21 MG/24 HR PATCH TD SCH ×2 (11:47→16:28)
[2017-10-01] MEDS ORDERED: LIDOCAINE 1% 5 ML SDV ID ONE (13:45)
--- NOTE | 2017-10-01 14:42 | ASMTCMCOM ---
CM Note CM Note Notes: Pt admitted w/PNA, also has LE hematoma vs abcess, hx of alcoholism- on CIWA. DC needs not clear yet. Pt too sleepy to talk to at this time. Per H&P, pt is homeless and has been sleeping outside and he desires sobriety. CM will need to offer resources for alcohol rehab prior to dc and he may other dc needs; awaiting PT recommendation. CM will follow. Date Signed: 10/01/2017 02:41 PM Electronically Signed By:Marilee Barajas RN
[2017-10-01] MEDS: ACETAMINOPHEN 325 MG TAB PO PRN (16:23)
--- NOTE | 2017-10-01 17:40 | POSTOPPROG ---
Post Op Note Date of Operation: 10/01/17 Surgeon: Declan Guido Anesthesia: Local (Specify) (4CC 1% LIDOCAINE) Pre-op Diagnosis: infected hematoma right lower leg Post-op Diagnosis: infected hematoma right lower leg Indication: infected hematoma right lower leg Procedure: I&D hematoma. cultures obtained Findings: infected hematoma right lower leg Inf/Abcess present in the surg proc area at time of surgery?: Yes Depth: Superfical (Skin SQ) EBL: Minimal Total fluids administered: N/A Complications: none Drains: Other (1/2 iodoform gauze placed in wound) Specimen(s): culture
--- NOTE | 2017-10-01 18:34 | GPN ---
[f rep st] PROCEDURE NOTE DATE OF PROCEDURE: 10/01/2017 ANESTHESIA: Local (4 cc of 1% Xylocaine). PREOPERATIVE DIAGNOSIS: Infected hematoma, right lower leg along the anterior felipe. POSTOPERATIVE DIAGNOSIS: Infected hematoma, right lower leg along the anterior felipe. INDICATIONS: Infected hematoma, right lower leg along the anterior felipe. FINDINGS: Infected hematoma, right lower leg along the anterior felipe. PROCEDURE: Incision and drainage hematoma. Cultures obtained from wound with a culture swab. BLOOD LOSS: Minimal. FLUIDS: Not applicable. COMPLICATIONS: None. DRAINS: Iodoform gauze. SPECIMEN: Culture. PROCEDURE IN DETAIL: The patient is appropriately consented. The right lower leg is carefully prepped. The skin is now anesthetized superiorly. 1% Xylocaine is used. It has been prepped with an iodine prep. The skin is sharply incised. Approximately 3 cc of old clot is obtained. The wound is carefully packed with Iodoform gauze. The wound is covered with several 4 x 4's. A Kerlix gauze is started at this level and continued down onto the forefoot, then continued up to the proximal calf. A 4-inch Emmanuel is started at the ankle, brought down on the forefoot, and returned to the lower leg. A 6-inch gauze is started and rolled up the leg further. The patient tolerated the procedure well. /[id number]/MODL MTDD
[2017-10-01] MEDS: GUAIFENESIN/DM 10 ML UDCUP PO PRN (22:16)
[2017-10-02] MEDS: LORazepam 2 MG/ML INJ IVP PRN ×7 (01:12→16:19)
[2017-10-02] MEDS: D5W NS W/ 20 KCl/L 1,000 ML IV SCH ×2 (01:19→21:28)
[2017-10-02] MEDS: LORazepam 1 MG TAB PO PRN (04:13)
[2017-10-02] MEDS: GUAIFENESIN/DM 10 ML UDCUP PO PRN ×2 (04:13→10:52)
[2017-10-02] MEDS: IPRATROPIUM/ALBUTEROL 3 ML DEYVIAL IH SCH ×4 (05:39→20:12)
[2017-10-02 06:11] LABS: PLATELET COUNT 105 10^3/uL (150-400)
[2017-10-02] MEDS: LISINOPRIL 20 MG TAB PO SCH (08:26)
[2017-10-02] MEDS: NICOTINE 21 MG/24 HR PATCH TD SCH ×3 (08:26→13:54)
[2017-10-02] MEDS: AZITHROMYCIN IV 500 MG in D5W 250 ML IV SCH (08:27)
[2017-10-02] MEDS: ENOXAPARIN 40 MG/0.4 ML SYR SC SCH (08:27)
[2017-10-02] MEDS: cefTRIAXone 1 GM in STERILE WATER INJ 10 ML IV SCH (08:27)
[2017-10-02] MEDS: guaiFENesin 600 MG TAB.ER PO SCH ×2 (08:27→22:07)
--- NOTE | 2017-10-02 08:49 | HOSPPROG ---
Hospitalist Progress Note Assessment/Plan: # CAP - cont ctx/azith - RSV positive - cont nebs, mucinex # LE hematoma vs abscess - s/p evacuation - GS neg; cx NGTD # etOH - currently withdrawing; at risk for severe w/d - cont CIWA, thiamine # HCV # mild hepatitis - may be d/t HCV vs etOH - follow another day # htn - takes meds at home - cont lisinopril - start inderal and hctz # pressure injury, POA - wound care # anxiety - cont meds when reconciled # hypoNa - resolved Subjective: still feels poorly Objective: Vital Signs Temp Pulse Resp BP Pulse Ox 37.2 C 101 H 20 183/117 H 92 10/02/17 07:19 10/02/17 07:19 10/02/17 07:19 10/02/17 08:26 10/02/17 07:19 Microbiology 10/01/17 17:47 Gram Stain - Final Leg - Swab 10/01/17 06:00 - Final Sputum, Expectorated Sputum Culture - Final Laboratory Results 10/02/17 05:50 10/02/17 05:50 10/01/17 10/02/17 10/03/17 05:59 05:59 05:59 Intake Total 1000 1040 Output Total 3000 Balance 1000 -1960 PT 15.2 SEC (12.0-15.0) H 09/30/17 19:28 INR 1.18 (0.83-1.16) H 09/30/17 19:28 - Physical Exam Constitutional: unkempt Cardiovascular: regular rate and rhythym, no murmur, rub, or gallop Respiratory: no respiratory distress, no rales or rhonchi Gastrointestinal: soft, non-tender abdomen, no palpable masses ICD10 Worksheet Patient Problems: Problems Problem Status Onset Cough Acute Community acquired pneumonia Acute Tobacco dependence Acute Hypoxemia Acute
[2017-10-02] MEDS: HYDROCHLOROTHIAZIDE 12.5 MG CAP PO SCH (09:33)
[2017-10-02] MEDS: PROPRANOLOL HCL 20 MG TAB PO SCH ×2 (09:33→17:54)
[2017-10-02] MEDS: THIAMINE HCL 500 MG in NS 250 ML IV SCH (10:13)
--- NOTE | 2017-10-02 10:37 | ASMTCMCOM ---
CM Note CM Note Notes: Discussed with RN who reports pt very confused/withdrawing. CM will attempt to talk w/pt tomorrow regarding dc poc. Date Signed: 10/02/2017 10:37 AM Electronically Signed By:Marilee Barajas RN
[2017-10-02] MEDS: ACETAMINOPHEN 325 MG TAB PO PRN (10:52)
--- NOTE | 2017-10-02 10:56 | SOAPPROG ---
SOAP Progress Note Assessment/Plan: 10/02/17 10:53 Assessment: No growth/no organisms seen Right lower leg looks much better! Iodoform removed. Plan: May shower tomorrow. Would continue dressing with kerlex and delmer until healed Subjective: The incision hurts somewhat Objective: Vital Signs Temp Pulse Resp BP Pulse Ox 37.2 C 111 H 20 144/97 H 92 10/02/17 07:19 10/02/17 09:33 10/02/17 07:19 10/02/17 09:33 10/02/17 07:19 Microbiology 10/01/17 17:47 Gram Stain - Final Leg - Swab 10/01/17 06:00 - Final Sputum, Expectorated Sputum Culture - Final Laboratory Results 10/02/17 05:50 10/02/17 05:50 10/01/17 10/02/17 10/03/17 05:59 05:59 05:59 Intake Total 1000 1040 Output Total 3000 Balance 1000 -1960 PT 15.2 SEC (12.0-15.0) H 09/30/17 19:28 INR 1.18 (0.83-1.16) H 09/30/17 19:28 - Time Spent With Patient Time Spent With Patient: 25 Physical Exam - Physical Exam General Appearance: alert, no apparent distress Extremities: other (right anterior felipe erythema has essentially resolved. iodoform wick removed. dressing replaced) ICD10 Worksheet Patient Problems: Problems Problem Status Onset Community acquired pneumonia Acute Cough Acute Hypoxemia Acute Tobacco dependence Acute
[2017-10-02] MEDS ORDERED: DEXMEDETOMIDINE HCL 400 MCG in NS 100 ML IV SCH (13:00)
[2017-10-02] MEDS ORDERED: DEXMEDETOMIDINE/NS 4MCG/ML 50 ML BTL IV ONE (13:12)
[2017-10-02] MEDS: HALOPERIDOL LACT 5 MG/ML INJ IVP PRN (14:59)
[2017-10-02] MEDS: DEXMEDETOMIDINE IN 0.9 % NACL 50 ML IV SCH ×2 (18:02→19:33)
[2017-10-02] MEDS: LORazepam 2 MG/ML INJ IVP SCH (18:04)
[2017-10-02] MEDS: DEXMEDETOMIDINE HCL 1,000 MCG in NS 250 ML IV SCH (21:18)
[2017-10-03] MEDS: PROPRANOLOL HCL 20 MG TAB PO SCH ×4 (00:13→20:31)
[2017-10-03] MEDS: D5W NS W/ 20 KCl/L 1,000 ML IV SCH ×2 (00:14→11:15)
[2017-10-03] MEDS: LORazepam 2 MG/ML INJ IVP SCH ×5 (00:14→23:57)
[2017-10-03] MEDS: IPRATROPIUM/ALBUTEROL 3 ML DEYVIAL IH SCH ×4 (05:31→21:34)
[2017-10-03] MEDS: THIAMINE HCL 500 MG in NS 250 ML IV SCH (08:58)
[2017-10-03] MEDS ORDERED: THIAMINE HCL 500 MG in NS 250 ML IV SCH (09:00)
[2017-10-03] MEDS: ENOXAPARIN 40 MG/0.4 ML SYR SC SCH (09:07)
[2017-10-03] MEDS: LISINOPRIL 20 MG TAB PO SCH (09:07)
[2017-10-03] MEDS: guaiFENesin 600 MG TAB.ER PO SCH ×2 (09:07→20:32)
[2017-10-03] MEDS: HYDROCHLOROTHIAZIDE 12.5 MG CAP PO SCH (09:07)
--- NOTE | 2017-10-03 09:34 | HOSPPROG ---
Hospitalist Progress Note Assessment/Plan: # acute encephalopathy - d/t etOH w/d - better on precedex iv - ok to discontinue medical detainer - no longer trying to leave AMA - if tries to leave AMA need to assess capacity before he leaves # etOH abuse with severe w/d requiring precedex and ativan iv - cont thiamine and CIWA # CAP - cont ctx D#4/ and azith D#4/ - RSV positive - cont nebs, mucinex # LE hematoma vs abscess - s/p evacuation - most likely a hematoma without infection given cx NGTD # HCV # mild hepatitis - may be d/t HCV vs etOH - recheck every few days # htn - takes meds at home - cont lisinopril - cont inderal and hctz (home meds) # pressure injury, POA - wound care # anxiety - cont meds when reconciled # hypoNa - resolved Subjective: says he is sleepy; more calm overnight Objective: Vital Signs Temp Pulse Resp BP Pulse Ox 37.1 C 85 13 121/77 H 96 10/03/17 04:00 10/03/17 09:06 10/03/17 08:00 10/03/17 09:07 10/03/17 08:00 Microbiology 10/01/17 17:47 Gram Stain - Final Leg - Swab Laboratory Results 10/02/17 05:50 10/03/17 05:15 10/02/17 10/03/17 10/04/17 05:59 05:59 05:59 Intake Total 1040 2585 Output Total 3000 1100 Balance -1960 1485 PT 15.2 SEC (12.0-15.0) H 09/30/17 19:28 INR 1.18 (0.83-1.16) H 09/30/17 19:28 patient critically ill with a high risk of from etOH withdrawal requiring precedex gtt, ativan iv and icu care; 35 mins floor/bedside cc time - Physical Exam Constitutional: unkempt Cardiovascular: regular rate and rhythym, no murmur, rub, or gallop Respiratory: no respiratory distress, no rales or rhonchi Gastrointestinal: soft, non-tender abdomen, no palpable masses ICD10 Worksheet Patient Problems: Problems Problem Status Onset Cough Acute Community acquired pneumonia Acute Tobacco dependence Acute Hypoxemia Acute
[2017-10-03] MEDS: cefTRIAXone 1 GM in STERILE WATER INJ 10 ML IV SCH (11:21)
[2017-10-03] MEDS: ACETAMINOPHEN 325 MG TAB PO PRN (14:23)
[2017-10-03] MEDS: AZITHROMYCIN 250 MG TAB PO SCH (14:24)
[2017-10-03] MEDS: AZITHROMYCIN IV 500 MG in D5W 250 ML IV SCH (14:25)
[2017-10-03] MEDS: LORazepam 2 MG/ML INJ IVP PRN (16:06)
--- NOTE | 2017-10-03 16:22 | ASMTCMCOM ---
CM Note CM Note Notes: Met with patient today to go over resources for him, especially A and D. Patient states his primary issue is he cannot get his certificate to get his ID. He currently does not have an ID of any kind and cannot work without one. Patient says his certificate is in [place]. Patient has tried to get the police department to fingerprint and then send him with that information to the DM[employer] but they refuse to do this.Patient was not completely alert today so possibly this can be revisited. CM will follow. Date Signed: 10/03/2017 04:22 PM Electronically Signed By:Ramandeep Jones LCSW
[2017-10-03] MEDS: DEXMEDETOMIDINE HCL 1,000 MCG in NS 250 ML IV SCH (19:13)
[2017-10-03] MEDS: HALOPERIDOL LACT 5 MG/ML INJ IVP PRN (20:32)
[2017-10-03] MEDS: LORazepam 1 MG TAB PO PRN (20:32)
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
[2017-10-04] MEDS: HALOPERIDOL LACT 5 MG/ML INJ IVP PRN (02:53)
[2017-10-04] MEDS: LORazepam 2 MG/ML INJ IVP PRN ×5 (02:54→19:31)
[2017-10-04 05:26] LABS: PLATELET COUNT 137 10^3/uL (150-400)
[2017-10-04] MEDS: IPRATROPIUM/ALBUTEROL 3 ML DEYVIAL IH SCH ×4 (05:48→19:58)
[2017-10-04] MEDS: guaiFENesin 600 MG TAB.ER PO SCH ×2 (07:38→19:30)
[2017-10-04] MEDS: ENOXAPARIN 40 MG/0.4 ML SYR SC SCH (07:38)
[2017-10-04] MEDS: HYDROCHLOROTHIAZIDE 12.5 MG CAP PO SCH (07:38)
[2017-10-04] MEDS: THIAMINE HCL 100 MG TAB PO SCH (07:39)
[2017-10-04] MEDS: NICOTINE 21 MG/24 HR PATCH TD SCH (07:40)
[2017-10-04] MEDS: AZITHROMYCIN 250 MG TAB PO SCH (07:40)
[2017-10-04] MEDS: LISINOPRIL 20 MG TAB PO SCH (07:40)
[2017-10-04] MEDS: PROPRANOLOL HCL 20 MG TAB PO SCH ×3 (07:40→21:58)
[2017-10-04] MEDS: LORazepam 2 MG/ML INJ IVP SCH (07:42)
[2017-10-04] MEDS ORDERED: AZITHROMYCIN 250 MG TAB PO SCH (09:00)
--- NOTE | 2017-10-04 09:07 | SOAPPROG ---
SOAP Progress Note Assessment/Plan: 10/02/17 10:53 Assessment: No growth/no organisms seen Right lower leg looks much better! Iodoform removed. Plan: May shower tomorrow. Would continue dressing with kerlex and delmer until healed 10/04/17 09:03 Assessment: right lower leg wound continues to improve. Plan: continue compressive leg dressings Subjective: no complaints Objective: Vital Signs Temp Pulse Resp BP Pulse Ox 36.8 C 78 18 181/99 H 95 10/04/17 07:36 10/04/17 07:40 10/04/17 07:36 10/04/17 07:40 10/04/17 07:36 Microbiology 10/01/17 17:47 Gram Stain - Final Leg - Swab Laboratory Results 10/04/17 05:15 10/04/17 05:15 10/03/17 10/04/17 10/05/17 05:59 05:59 05:59 Intake Total 2585 3572 500 Output Total 1100 2850 450 Balance 1485 722 50 PT 15.2 SEC (12.0-15.0) H 09/30/17 19:28 INR 1.18 (0.83-1.16) H 09/30/17 19:28 - Time Spent With Patient Time Spent With Patient: 15 Physical Exam - Physical Exam Extremities: other (right lower extremity- wound clean, erythema resolved, healing) ICD10 Worksheet Patient Problems: Problems Problem Status Onset Community acquired pneumonia Acute Cough Acute Hypoxemia Acute Tobacco dependence Acute
--- NOTE | 2017-10-04 10:01 | HOSPPROG ---
Hospitalist Progress Note Assessment/Plan: DIAGNOSES: # acute alcohol withdrawal syndrome with acute encephalopathy - still requiring precedex iv especially at night; at this time will order scheduled Haldol and decrease Ativan some much to avoid any disinhibition it might be causing, will leave p.r.n. Ativan and place but would favor use of Precedex and Haldol, I have discussed with his nurse - ok to keep off medical detainer at this time - no longer trying to leave AMA - if tries to leave AMA need to assess capacity before he leaves - cont thiamine and CIWA # CAP - cont ctx D#12/29 can now discontinue azith D#12/27 - RSV positive - cont nebs, mucinex # LE hematoma vs abscess - s/p evacuation - improving nicely per Dr. Guido, most likely a hematoma without infection given cx NGTD # HCV # mild hepatitis - may be d/t HCV vs etOH - recheck every few days # htn - cont lisino, inderal and hctz (home meds) # pressure injury, POA - wound care nurse is attending this # chronic anxiety # hypoNa - resolved I reviewed the case in detail today with Dr. Ulrich. Also saw patient on multidisciplinary rounds today PLANS: Continue Precedex drip which I expect will need to be turned up at night and turned down during the day I will order scheduled Haldol 3 times daily I will change his scheduled Ativan at this point to a lower dose and oral so it lasts longer Recheck electrolytes and liver panel tomorrow morning SUBJECTIVE: Patient says he feels much better today Continues to want to stop drinking alcohol Per nurse's overnight he was severely agitated requiring significant increase in his Precedex drip through the night as well as use of Haldol and extra Ativan. Given the degree of agitation that he has in the uncooperative nature of his interactions with nurses, I suspect there may be some disinhibition from the Ativan. There have been no seizures OBJECTIVE Vitals reviewed: Hypertension during periods of agitation. 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 No tremor but fairly anxious still. He is still on Precedex right now and has received both Ativan and Haldol this morning. He still has poor insight into his issues in terms of fall risk and potential for injury. His strength for posture is very poor and he is slumped over somewhat in his chair. No focal neurologic changes. skin warm dry color ok resps not labored lungs clear BSs heart regular abd soft nondistended nontender, bowel sounds present limbs warm, no edema iv site ok Laboratory data: CBC is stable with actually some improvement in his anemia Electrolytes are all in good range in renal function stable Objective: Vital Signs Temp Pulse Resp BP Pulse Ox 36.8 C 78 18 181/99 H 95 10/04/17 07:36 10/04/17 07:40 10/04/17 07:36 10/04/17 07:40 10/04/17 07:36 Microbiology 10/01/17 17:47 Gram Stain - Final Leg - Swab Laboratory Results 10/04/17 05:15 10/04/17 05:15 10/03/17 10/04/17 10/05/17 06:59 06:59 06:59 Intake Total 2585 3572 500 Output Total 1100 2850 450 Balance 1485 722 50 PT 15.2 SEC (12.0-15.0) H 09/30/17 19:28 INR 1.18 (0.83-1.16) H 09/30/17 19:28 ICD10 Worksheet Patient Problems: Problems Problem Status Onset Community acquired pneumonia Acute Cough Acute Hypoxemia Acute Tobacco dependence Acute
[2017-10-04] MEDS: cefTRIAXone 1 GM in STERILE WATER INJ 10 ML IV SCH (10:10)
[2017-10-04] MEDS: HALOPERIDOL 5 MG TAB PO SCH ×2 (11:39→17:05)
--- NOTE | 2017-10-04 13:23 | PDINTPN ---
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 Relatively severe. On Precedex, Ativan, thiamin. Overall he appears to be improving Agitation: In part secondary to above, in part likely secondary to a personality disorder. Routine Haldol to be given. Possible pneumonia. Infiltrate at the left base although little in the way of findings or symptoms at this time. For repeat chest x-ray. On antibiotics, on bronchodilator therapies. Right lower extremity hematoma. Drained. Not infected. Metabolic: Mildly elevated bilirubin, liver function studies. Prophylaxis: On enoxaparin, eating. Plan: Continue CIWA protocol. Continue Precedex, Ativan. Schedule Haldol to be started. Recheck chest x-ray today. Continue antibiotics and bronchodilator therapies. Continue care in the intensive care unit for now. Can be step-down unit status. Follow CBC, chemistries. Subjective: Sedated, on Precedex. Arouses, responds and seems appropriate. Says he still feels he is withdrawing. Objective: Vital Signs Temp Pulse Resp BP Pulse Ox 36.8 C 74 18 136/88 H 96 10/04/17 10:00 10/04/17 12:00 10/04/17 12:00 10/04/17 12:00 10/04/17 12:00 Microbiology 10/01/17 17:47 Gram Stain - Final Leg - Swab Wound Culture - Final Laboratory Results 10/04/17 05:15 10/04/17 05:15 10/03/17 10/04/17 10/05/17 05:59 05:59 05:59 Intake Total 2585 3572 860 Output Total 1100 2850 900 Balance 1485 722 -40 PT 15.2 SEC (12.0-15.0) H 09/30/17 19:28 INR 1.18 (0.83-1.16) H 09/30/17 19:28 Laboratory Tests 10/03/17 10/04/17 05:15 05:15 Magnesium 1.9 Total Bilirubin 3.0 H AST 162 H ALT 91 H Albumin 2.6 L CXR: Pending Physical Exam - Physical Exam General Appearance: obtunded (Initially, arouses, responds. Confused at times, agitated) EENT: PERRL/EOMI, other (On room air) Neck: normal inspection (No JVD) Respiratory: lungs clear, decreased breath sounds (At bases, coarse), No rales, No rhonchi Cardiac/Chest: regular rate, rhythm Abdomen: normal bowel sounds, non-tender, soft Skin: normal color, warm/dry, other (Multiple abrasions and ecchymoses on the lower extremities) Extremities: No pedal edema Neuro/Psych: no motor/sensory deficits (Moves all extremities equally), cognition abnormalities (Confused at times, agitated at times) ICD10 Worksheet Patient Problems: Problems Problem Status Onset Community acquired pneumonia Acute Cough Acute Hypoxemia Acute Tobacco dependence Acute
[2017-10-04] MEDS: LORazepam 1 MG TAB PO SCH ×3 (13:50→21:58)
[2017-10-04] MEDS ORDERED: LACTULOSE 20 GM/30 ML UDCUP PO PRN (13:54)
[2017-10-04] MEDS ORDERED: BISACODYL 10 MG SUPP PR PRN (13:54)
[2017-10-04] MEDS ORDERED: MAGNESIUM HYDROXIDE 30 ML UDCUP PO PRN (13:54)
[2017-10-04] MEDS ORDERED: POLYETHYLENE GLYCOL 3350 17 GM PKT PO PRN (13:54)
[2017-10-04] MEDS ORDERED: SODIUM CL NASAL 45 ML BTL EACHNARE PRN (16:23)
[2017-10-04] MEDS: SENNOSIDES/DOCUSATE SODIUM TAB PO SCH (19:30)
[2017-10-04] MEDS: DEXMEDETOMIDINE HCL 1,000 MCG in NS 250 ML IV SCH (19:30)
[2017-10-04] MEDS: ACETAMINOPHEN 325 MG TAB PO PRN (19:30)
[2017-10-05] MEDS: HALOPERIDOL LACT 5 MG/ML INJ IVP PRN ×3 (00:43→20:05)
[2017-10-05] MEDS: HALOPERIDOL 5 MG TAB PO SCH ×5 (01:08→22:45)
[2017-10-05] MEDS: LORazepam 2 MG/ML INJ IVP PRN ×4 (01:50→20:05)
[2017-10-05] MEDS: LORazepam 1 MG TAB PO SCH ×6 (01:51→22:45)
[2017-10-05] MEDS: DEXMEDETOMIDINE HCL 1,000 MCG in NS 250 ML IV SCH (05:15)
[2017-10-05 05:25] LABS: PLATELET COUNT 151 10^3/uL (150-400)
[2017-10-05] MEDS: IPRATROPIUM/ALBUTEROL 3 ML DEYVIAL IH SCH ×4 (06:20→20:41)
[2017-10-05] MEDS: SENNOSIDES/DOCUSATE SODIUM TAB PO SCH ×2 (08:21→21:39)
[2017-10-05] MEDS: cefTRIAXone 1 GM in STERILE WATER INJ 10 ML IV SCH (08:21)
[2017-10-05] MEDS: ENOXAPARIN 40 MG/0.4 ML SYR SC SCH (08:21)
[2017-10-05] MEDS: LISINOPRIL 20 MG TAB PO SCH (08:21)
[2017-10-05] MEDS: PROPRANOLOL HCL 20 MG TAB PO SCH ×3 (08:21→20:04)
[2017-10-05] MEDS: NICOTINE 21 MG/24 HR PATCH TD SCH (08:21)
[2017-10-05] MEDS: HYDROCHLOROTHIAZIDE 12.5 MG CAP PO SCH (08:22)
[2017-10-05] MEDS: THIAMINE HCL 100 MG TAB PO SCH (08:22)
[2017-10-05] MEDS: guaiFENesin 600 MG TAB.ER PO SCH ×2 (08:22→20:04)
--- NOTE | 2017-10-05 11:39 | HOSPPROG ---
Hospitalist Progress Note Assessment/Plan: DIAGNOSES: # acute alcohol withdrawal syndrome with acute encephalopathy - still requiring precedex iv especially at night; at this time will order scheduled Haldol and decrease Ativan some much to avoid any disinhibition it might be causing, will leave p.r.n. Ativan and place but would favor use of Precedex and Haldol, I have discussed with his nurse - ok to keep off medical detainer at this time - no longer trying to leave AMA - if tries to leave AMA need to assess capacity before he leaves - cont thiamine and CIWA # CAP - cont ctx D#12/29 can now discontinue azith D#12/27 - RSV positive - cont nebs, mucinex # LE hematoma vs abscess - s/p evacuation - improving nicely per Dr. Guido, most likely a hematoma without infection given cx NGTD # gait instability, multifactorial with alcohol, medications, nutritional factors all contributing; high fall risk # HCV # mild hepatitis - may be d/t HCV vs etOH - recheck every few days # htn - cont lisino, inderal and hctz (home meds) # pressure injury, POA - wound care nurse is attending this # chronic anxiety # hypoNa - resolved I reviewed the case in detail today with Dr. Ulrich. Also saw patient on multidisciplinary rounds today PLANS: Continue Precedex drip which will need to be turned up at nights and turned down during the day Continue scheduled Haldol 3 times daily until he resolves delirium tremens Continue scheduled Ativan for seizure prophylaxis Continue thiamin replacements Recheck electrolytes and liver panel tomorrow morning Physical occupational therapy, fall risk precautions DVT prophylaxis ongoing He will require ongoing ICU care due to the intensity of nursing and sedation medications given by intravenous drip SUBJECTIVE: Again had quite a bit more agitation and confusion at night, requiring significant increase in size in sedation medicines for safety, we have been using primarily Haldol and Precedex with good affect at this time. He is getting schedule Ativan for seizure prevention This morning he did eat breakfast, feels weak but otherwise comfortable OBJECTIVE Vitals reviewed: Hypertension during periods of agitation. 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 No tremor but fairly anxious still. Looks like there is some notable disequilibrium at this moment, yesterday per nurses he did have improvement later in the day in this as we were able to decrease his sedation medicine for the late morning and afternoon skin warm dry color ok resps not labored lungs clear BSs heart regular abd soft nondistended nontender, bowel sounds present limbs warm, no edema iv site ok Laboratory data: CBC is stable Bilirubin is improved at 1.9 but transaminases remain elevated without much change, other chemistries stable at this time Objective: Vital Signs Temp Pulse Resp BP Pulse Ox 37 C 72 18 130/70 H 93 10/05/17 10:00 10/05/17 11:20 10/05/17 11:20 10/05/17 10:00 10/05/17 11:20 Microbiology 10/01/17 17:47 Gram Stain - Final Leg - Swab Wound Culture - Final Laboratory Results 10/05/17 05:10 10/05/17 05:10 10/04/17 10/05/17 10/06/17 06:59 06:59 06:59 Intake Total 3572 4020 420 Output Total 2850 3950 Balance 722 70 420 PT 15.2 SEC (12.0-15.0) H 09/30/17 19:28 INR 1.18 (0.83-1.16) H 09/30/17 19:28 - Time Spent With Patient Time Spent with Patient: greater than 35 minutes Time Spent with Patient: Greater than 35 minutes spent on this patients care, greater than 50% of time spent counseling, educating, and coordinating care regarding the above mentioned plan. ICD10 Worksheet Patient Problems: Problems Problem Status Onset Community acquired pneumonia Acute Cough Acute Hypoxemia Acute Tobacco dependence Acute
--- NOTE | 2017-10-05 13:16 | PDINTPN ---
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 Relatively severe. CIWA 18 this a.m.. On Precedex at night , Ativan, thiamin and Haldol. Overall he appears to be improving Agitation: In part secondary to above, in part likely secondary to a personality disorder. On Haldol to be given. Possible pneumonia. Possible infiltrate at the left base on admission although little in the way of findings or symptoms. Repeat chest x-ray negative for any significant infiltrate. On ceftriaxone and bronchodilator therapies. Will stop antibiotics after 5 days of therapy, 10/06. Right lower extremity hematoma. Drained. Not infected. Metabolic: Mildly elevated bilirubin, liver function studies: Improving. Secondary to alcohol Prophylaxis: On enoxaparin, eating. Plan: Continue CIWA protocol. Continue Precedex at night, Ativan. Continue Haldol for agitation. Stop ceftriaxone tomorrow after 5 days of therapy. Continue bronchodilator therapies prn. Continue care in the intensive care unit for now on step-down unit status. Follow CBC, chemistries intermittently. Subjective: Somnolent, arousable and responsive. Oriented x3 Objective: Vital Signs Temp Pulse Resp BP Pulse Ox 37 C 75 14 110/71 97 10/05/17 12:00 10/05/17 12:00 10/05/17 12:00 10/05/17 12:00 10/05/17 12:00 Microbiology 10/01/17 17:47 Gram Stain - Final Leg - Swab Wound Culture - Final Laboratory Results 10/05/17 05:10 10/05/17 05:10 10/04/17 10/05/17 10/06/17 05:59 05:59 05:59 Intake Total 3572 4020 920 Output Total 2850 3950 Balance 722 70 920 PT 15.2 SEC (12.0-15.0) H 09/30/17 19:28 INR 1.18 (0.83-1.16) H 09/30/17 19:28 Laboratory Tests 10/05/17 05:10 Calcium 8.6 Phosphorus 5.4 H Magnesium 1.9 Total Bilirubin 1.9 H AST 153 H ALT 104 H Albumin 2.7 L Physical Exam - Physical Exam General Appearance: other (Somnolent, arouses.) EENT: PERRL/EOMI, other (On room air) Neck: normal inspection (No JVD) Respiratory: lungs clear, decreased breath sounds (At bases), No rales, No rhonchi, No wheezing Cardiac/Chest: regular rate, rhythm, No gallop Abdomen: normal bowel sounds, non-tender, soft Skin: normal color, warm/dry Extremities: other (Abrasions and ecchymoses over both lower extremities. Small dressing in place over hemoatoma drain site on the right. No cords, no significant tenderness.) Neuro/Psych: no motor/sensory deficits (Moves all extremities equally), No cognition abnormalities ICD10 Worksheet Patient Problems: Problems Problem Status Onset Community acquired pneumonia Acute Cough Acute Hypoxemia Acute Tobacco dependence Acute
[2017-10-05] MEDS: GUAIFENESIN/DM 10 ML UDCUP PO PRN (18:13)
[2017-10-06] MEDS: LORazepam 1 MG TAB PO SCH ×6 (02:26→20:43)
[2017-10-06] MEDS: HALOPERIDOL LACT 5 MG/ML INJ IVP PRN ×2 (02:26→20:44)
[2017-10-06] MEDS: LORazepam 2 MG/ML INJ IVP PRN ×2 (02:26→20:44)
[2017-10-06] MEDS: DEXMEDETOMIDINE HCL 1,000 MCG in NS 250 ML IV SCH (04:16)
[2017-10-06] MEDS: IPRATROPIUM/ALBUTEROL 3 ML DEYVIAL IH SCH ×3 (04:54→15:17)
[2017-10-06] MEDS: HALOPERIDOL 5 MG TAB PO SCH ×5 (05:46→22:59)
[2017-10-06] MEDS: guaiFENesin 600 MG TAB.ER PO SCH ×2 (09:00→20:43)
[2017-10-06] MEDS: THIAMINE HCL 100 MG TAB PO SCH (09:00)
[2017-10-06] MEDS: PROPRANOLOL HCL 20 MG TAB PO SCH ×3 (09:01→20:41)
[2017-10-06] MEDS: LISINOPRIL 20 MG TAB PO SCH (09:01)
[2017-10-06] MEDS: SENNOSIDES/DOCUSATE SODIUM TAB PO SCH ×2 (09:01→19:43)
[2017-10-06] MEDS: HYDROCHLOROTHIAZIDE 12.5 MG CAP PO SCH (09:01)
[2017-10-06] MEDS: NICOTINE 21 MG/24 HR PATCH TD SCH (09:02)
--- NOTE | 2017-10-06 11:38 | HOSPPROG ---
Hospitalist Progress Note Assessment/Plan: DIAGNOSES: # acute alcohol withdrawal syndrome with acute encephalopathy -still having significant delirium and agitation and requiring extensive nursing and other medical assistant dermatology presence, significant sedation # CAP -Has completed antibiotic therapy and is doing well respiratory edmond # LE hematoma vs abscess - s/p evacuation - improving nicely per Dr. Guido, most likely a hematoma without infection given cx NGTD # gait instability, multifactorial with alcohol, medications, nutritional factors all contributing; high fall risk # HCV # mild hepatitis - may be d/t HCV vs etOH # htn - cont lisino, inderal and hctz (home meds) # pressure injury, POA - wound care nurse is attending this # chronic anxiety # hypoNa - resolved I reviewed the case in detail today with Dr. Vasquez Also saw patient on multidisciplinary rounds today PLANS: Continue Precedex drip at night, can use during day if needed Continue scheduled Haldol 4 times daily until he resolves delirium tremens Continue scheduled Ativan for seizure prophylaxis Continue thiamin replacements Recheck electrolytes and liver panel tomorrow morning Physical occupational therapy, fall risk precautions DVT prophylaxis ongoing He will require ongoing ICU care due to the intensity of nursing and sedation medications given by intravenous drip SUBJECTIVE: Patient today is mostly complaining about things being rearranged in his room. The patient did eat breakfast this morning No fever or respiratory symptoms Nurses reports and documentation show the patient continues to have fluctuating confusion agitation and levels of alertness. At night and particularly is quite agitated and confused and requires sedation for safety. However we have been able to use the Precedex for less hours over the last 24 hr than the previous, though he is still requiring in addition to regularly scheduled Haldol and Ativan doses additional p.r.n. doses of those at night. OBJECTIVE Vitals reviewed: Hypertension during periods of agitation. 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 Moderate anxiety at the moment Still with some disequilibrium as I watch him attempt to ambulate and he still has significant fall risk skin warm dry color ok resps not labored lungs clear BSs heart regular abd soft nondistended nontender, bowel sounds present limbs warm, no edema iv site ok Laboratory data: Electrolytes remained in good range in renal function stable Objective: Vital Signs Temp Pulse Resp BP Pulse Ox 36.9 C 76 16 154/68 H 96 10/06/17 08:28 10/06/17 10:00 10/06/17 10:00 10/06/17 09:01 10/06/17 10:00 Laboratory Results 10/05/17 05:10 10/06/17 04:15 10/05/17 10/06/17 10/07/17 06:59 06:59 06:59 Intake Total 4020 2429 Output Total 3950 Balance 70 2429 PT 15.2 SEC (12.0-15.0) H 09/30/17 19:28 INR 1.18 (0.83-1.16) H 09/30/17 19:28 - Time Spent With Patient Time Spent with Patient: greater than 35 minutes Time Spent with Patient: Greater than 35 minutes spent on this patients care, greater than 50% of time spent counseling, educating, and coordinating care regarding the above mentioned plan. ICD10 Worksheet Patient Problems: Problems Problem Status Onset Community acquired pneumonia Acute Cough Acute Hypoxemia Acute Tobacco dependence Acute
[2017-10-06] MEDS: ENOXAPARIN 40 MG/0.4 ML SYR SC SCH (11:51)
[2017-10-06] MEDS: ACETAMINOPHEN 325 MG TAB PO PRN ×2 (11:52→20:40)
--- NOTE | 2017-10-06 13:20 | PDINTPN ---
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 Relatively severe, but improved. CIWA 8 this a.m.. On Precedex at night, Ativan, thiamin and Haldol. Still significant agitation at night * Agitation: In part secondary to above, in part likely secondary to a personality disorder. On Haldol to be given. * Pneumonia. Possible infiltrate at the left base on admission although little in the way of findings or symptoms. -stop antibiotics today * Right lower extremity hematoma. Drained. Not infected. * Metabolic: Mildly elevated bilirubin, liver function studies: Improving. Secondary to alcohol * Prophylaxis: On enoxaparin, eating. * Nutrition-eating Subjective: Resting comfortably. Awake and alert. No current complaints. Objective: Vital Signs Temp Pulse Resp BP Pulse Ox 36.9 C 84 14 114/66 96 10/06/17 08:28 10/06/17 11:43 10/06/17 11:43 10/06/17 11:43 10/06/17 11:43 Laboratory Results 10/05/17 05:10 10/06/17 04:15 10/05/17 10/06/17 10/07/17 05:59 05:59 05:59 Intake Total 4020 2429 Output Total 3950 Balance 70 2429 PT 15.2 SEC (12.0-15.0) H 09/30/17 19:28 INR 1.18 (0.83-1.16) H 09/30/17 19:28 - Time Spent With Patient Time Spent With Patient: 25 min time spent with patient, over 1/2 involved with coordination care or counseling Physical Exam - Physical Exam General Appearance: alert, no apparent distress EENT: PERRL/EOMI, normal ENT inspection Neck: non-tender, full range of motion, supple, normal inspection Respiratory: chest non-tender, lungs clear, normal breath sounds Cardiac/Chest: normal peripheral pulses, regular rate, rhythm Abdomen: normal bowel sounds Male Genitalia: deferred Rectal: deferred Skin: normal color, warm/dry Extremities: normal range of motion, non-tender, normal inspection, normal capillary refill ICD10 Worksheet Patient Problems: Problems Problem Status Onset Community acquired pneumonia Acute Cough Acute Hypoxemia Acute Tobacco dependence Acute
--- NOTE | 2017-10-06 16:02 | ASMTCMCOM ---
CM Note CM Note Notes: Patient going through severe ETOH W/D, needed precedex last night. Will need ETOH Tx res when more cognitively present. Date Signed: 10/06/2017 04:02 PM Electronically Signed By:Tran Dooley LCSW
[2017-10-06] MEDS ORDERED: cefTRIAXone 1 GM in STERILE WATER INJ 10 ML IV SCH (23:55)
[2017-10-07] MEDS: LORazepam 1 MG TAB PO SCH ×3 (02:00→09:58)
[2017-10-07] MEDS: HALOPERIDOL 5 MG TAB PO SCH ×2 (05:03→13:36)
[2017-10-07 06:19] LABS: PLATELET COUNT 202 10^3/uL (150-400)
[2017-10-07 07:32] VITALS: RESP 16; TEMP 97.8; O2SAT 99
--- NOTE | 2017-10-07 09:34 | PDINTPN ---
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 Relatively severe, but improved. CIWA low. On Precedex at night, Ativan, thiamin and Haldol. Still significant agitation at night * Agitation: In part secondary to above, in part likely secondary to a personality disorder. On Haldol to be given. * Pneumonia-off antibiotics * Right lower extremity hematoma. Drained. Not infected. * Metabolic: Mildly elevated bilirubin, liver function studies: Improving. Secondary to alcohol * Prophylaxis: On enoxaparin, eating. * Nutrition-eating * Disposition-likely okay for transfer to floor Subjective: Resting comfortably. Objective: Vital Signs Temp Pulse Resp BP Pulse Ox 36.6 C 74 16 164/92 H 99 10/07/17 07:28 10/07/17 07:28 10/07/17 07:28 10/07/17 07:28 10/07/17 07:28 Laboratory Results 10/07/17 05:40 10/07/17 05:40 10/06/17 10/07/17 10/08/17 05:59 05:59 05:59 Intake Total 2429 1220 Balance 2429 1220 PT 15.2 SEC (12.0-15.0) H 09/30/17 19:28 INR 1.18 (0.83-1.16) H 09/30/17 19:28 - Time Spent With Patient Time Spent With Patient: 25 min of time spent with patient, over 1/2 involved with coordination of care or counseling Physical Exam - Physical Exam General Appearance: alert EENT: PERRL/EOMI, normal ENT inspection Neck: non-tender, full range of motion Respiratory: lungs clear, No wheezing Cardiac/Chest: normal peripheral pulses, regular rate, rhythm Abdomen: normal bowel sounds, non-tender, soft Male Genitalia: deferred Rectal: deferred Skin: normal color, warm/dry Extremities: normal range of motion, non-tender, normal inspection, normal capillary refill Neuro/Psych: alert, normal mood/affect, oriented x 3 ICD10 Worksheet Patient Problems: Problems Problem Status Onset Community acquired pneumonia Acute Cough Acute Hypoxemia Acute Tobacco dependence Acute
[2017-10-07] MEDS: ENOXAPARIN 40 MG/0.4 ML SYR SC SCH (09:56)
[2017-10-07] MEDS: HYDROCHLOROTHIAZIDE 12.5 MG CAP PO SCH (09:57)
[2017-10-07] MEDS: LISINOPRIL 20 MG TAB PO SCH (09:57)
[2017-10-07] MEDS: PROPRANOLOL HCL 20 MG TAB PO SCH (09:58)
[2017-10-07 09:59] VITALS: BP 153/96; PULSE 78
[2017-10-07] MEDS: guaiFENesin 600 MG TAB.ER PO SCH (09:59)
[2017-10-07] MEDS: NICOTINE 21 MG/24 HR PATCH TD SCH (09:59)
[2017-10-07] MEDS: SENNOSIDES/DOCUSATE SODIUM TAB PO SCH (10:02)
[2017-10-07] MEDS: THIAMINE HCL 100 MG TAB PO SCH (10:04)
--- NOTE | 2017-10-07 12:26 | PDDCSUM ---
Discharge Summary Discharge Summary: DISCHARGE DIAGNOSES: # acute alcohol withdrawal syndrome with acute encephalopathy and agitation # Community Aquired Pneumonia # Left Leg hematoma, s/p evacuation # gait instability, multifactorial # HCV # mild alcoholic hepatitis # htn # pressure injury, POA - wound care nurse is attending this # chronic anxiety # hypoNa - resolved CONSULTANTS: [facility] COURSE SUMMARY: This patient with chronic alcoholism came into the hospital with cough shortness of breath weakness and was having active alcohol withdrawal. He stated that he wanted to quit drinking and wanted to go through withdrawal here so we did admitted to the intensive care unit and he did have fairly severe withdrawal requiring Precedex drip and at Ativan dosing. He was given thiamine electrolyte replacements. As far as his pneumonia that was very mild and was treated with antibiotics and improved quite nicely with that. There were no complications to any these issues. At this time he is wide awake alert with normal mentation no tremor or agitation walking in the hallways without difficulty no dyspnea no fever, eating well has good balance no fall risk. He stable for discharge to home when would like to leave. In addition the patient did have a hematoma on his left calf and this was assessed by Dr. Guido who incised and debrided this hematoma. There is no evidence of infection it was managed by wound care here and is healing nicely at this time. PENDING TEST RESULTS: None MEDICATION CHANGES: None FOLLOW-UP PLAN: At [facility] later this week Greater than 35 minutes bedside and care coordination time today
== END 2017-10-07 12:25 | disposition home or self-care (01) | DRG 194 ==
LOC: EDUNIT# → OBSVTOIN 20:15 → EEVIPCON 20:15 → F3E 21:34 → F2N 10-02 13:03
PROVIDERS: ADMIT Internal Medicine; ATTEND Internal Medicine
PROC: 0JCN3ZZ Extirpation of Matter from Right Lower Leg Subcutaneous Tissue and Fascia, Percutaneous Approach (ICD-10-PCS; principal; 2017-10-01)
DX: J12.1 Respiratory syncytial virus pneumonia (principal); F10.239 Alcohol dependence with withdrawal, unspecified; S80.11XA Contusion of right lower leg, initial encounter; X58.XXXA Exposure to other specified factors, initial encounter; B19.20 Unspecified viral hepatitis C without hepatic coma; K70.10 Alcoholic hepatitis without ascites; E11.9 Type 2 diabetes mellitus without complications; I10 Essential (primary) hypertension; Z59.0 Homelessness; F17.210 Nicotine dependence, cigarettes, uncomplicated; F41.9 Anxiety disorder, unspecified
CPT/HCPCS: 82607-90; 97161-GP; 97165-GO; G0480; J0456; J0696; J1630; J1650; J2060; J3411

== ENCOUNTER 2017-10-10 13:47 | Emergency (ER) | payer MEDICAID ==
--- NOTE | 2017-10-10 13:50 | EDPHY ---
HPI/HX/ROS/PE/MDM Narrative: CHIEF COMPLAINT: Medical clearance HPI: This patient is a 52 y/o male with chronic alcoholism arriving via EMS with police escort for medical clearance prior to prison. Ed reportedly saw him fall near [facility] [address] and called police. When officers arrived, he appeared to be sleeping with his head off the curb towards the roadway. The patient appeared intoxicated and needed assistance walking. Additionally, he complained of discomfort related to an old wound on his right leg, so presents for evaluation. The patient was recently admitted for pneumonia and alcohol withdrawal. He expressed a desire to quit drinking and went through withdrawal and treatment for pneumonia in the ICU here. He was discharged three days ago in good condition. Per EMS report, vitals were stable in transport. No fever, chest pain, shortness of breath, vomiting, diarrhea, seizures, or other associated symptoms. REVIEW OF SYSTEMS: Aside from elements discussed in the HPI, a comprehensive 10-point review of systems was reviewed and is negative. PMH: Hepatitis C. Hypertension. Bipolar disorder. Psychoaffective disorder. Alcohol abuse. SOCIAL HISTORY: Homeless. Lives in [place]. Arriving with police escort. PHYSICAL EXAM: General:Patient is alert, in no acute distress. Appears intoxicated. ENT:Eyes are normal to inspection. ENT inspection normal. Neck: Normal inspection. Full range of motion. Respiratory:No respiratory distress. Breath sounds normal bilaterally. Cardiovascular: Regular rate and rhythm. Strong peripheral pulses. Normal cap refill. Abdomen:The abdomen is nontender to palpation. There are no peritoneal signs. There are normal bowel sounds. Back: Normal to inspection. No tenderness to palpation. Skin: Normal color. No rash. Warm and dry. Extremities: LRE: Old ecchymosis noted. A 2-3cm vertical incision is present on right felipe, which corresponds to recent I/D site. Mild oozing but no pus discharge or surrounding cellulitis noted. Neuro: Oriented x3. Normal motor function. Normal sensory function. ED Course: 13:48 Met EMS at bedside. 52 y/o male with history of alcoholism presents for medical clearance prior to prison. Breathalyzer alcohol level 0.273. The patient's leg wound has no purulent discharge or evidence of cellulitis. Vitals are stable, patient is non-toxic appearing. The patient is medically cleared for prison. General Initial Vital Signs: Initial Vital Signs Temperature (C) 36.5 C 10/10/17 13:51 Heart Rate 85 10/10/17 13:51 Respiratory Rate 18 10/10/17 13:51 Blood Pressure 152/99 H 10/10/17 13:51 O2 Sat (%) 92 10/10/17 13:51 O2 Delivery Mode Room Air Allergies/Adverse Reactions: codeine Allergy (Verified 08/20/17 15:29) ziprasidone [From Geodon] Allergy (Verified 08/20/17 15:29) Home Medications: Medication Instructions Recorded Propranolol Sr [Inderal LA 80mg 80 mg PO DAILY 08/07/17 (*)] LISINOPRIL/HYDROCHLOROTHIAZIDE 1 each PO DAILY 08/16/17 [PRINZIDE 20-25 MG TABLET] Departure - Departure Disposition: Law Enforcement/Court/Care Home Clinical Impression: Alcohol intoxication Qualifiers: Complication of substance-induced condition: uncomplicated Qualified Code(s): F10.920 - Alcohol use, unspecified with intoxication, uncomplicated Condition: Good Instructions: Alcohol Intoxication (ED) Additional Instructions: Patient is medically cleared for prison. Please refrain from abusing alcohol. Return to the emergency department for fever, vomiting, confusion, headache, abdominal pain or other worsening of condition. Referrals: [facility] [Outside] - As per Instructions Report Scribed for: Hill Haskins Report Scribed by: Kayli Casey Date of Report: 10/10/17 Time of Report: 14:20 Physician Review and Approval Statement: Portions of this note were transcribed by an ED scribe. I personally performed the history, physical exam, and medical decision making; and confirm the accuracy of the information in the transcribed note.
[2017-10-10 17:21] VITALS: BP 147/91; PULSE 90; RESP 12; TEMP 98.1; O2SAT 90
== END 2017-10-10 17:36 ==
LOC: EDUNIT#
DX: F10.920 Alcohol use, unspecified with intoxication, uncomplicated (principal); I10 Essential (primary) hypertension

== ENCOUNTER 2017-10-17 10:53 | Emergency (ER) | payer MEDICAID ==
[2017-10-17] MEDS ORDERED: NS 1,000 ML IV ONE (10:59)
--- NOTE | 2017-10-17 10:59 | EDPHY ---
H & P Time Seen by Provider: 10/17/17 10:53 HPI/ROS: Chief complaint. Alcohol intoxication, abdominal pain, hypothermia HPI. 52-year-old male here by EMS with intoxication. He was found hanging out behind a [employer] and due to intoxication was unable to stand. No injuries. He does complain of right lower quadrant abdominal pain for 1 day. He does admit to drinking alcohol. Denies any other drugs or ingestion. No chest pain shortness of breath. No vomiting or diarrhea but right lower quadrant abdominal ROS Constitutional. no fever/chills, no weakness Eyes. no problems with vision ENT. no sore throat, no nasal drainage Cardiovascular. no chest pain Respiratory. no shortness of breath, no cough Abdominal. Right lower quadrant abdominal . no problems urinating MS. no calf pain/swelling, no neck/back pain, no joint pain Skin. no rash Lymph. no swollen glands Neuro. Unable to stand or walk secondary to intoxication Past Medical/Surgical History: Bipolar, manic depressive in, schizoaffective, alcoholism, hepatitis-C, hypertension Social History: Single, daily smoker, recent alcohol Smoking Status: Heavy smoker Physical Exam: General Appearance: Arousable well-developed male mild distress. Vital signs are stable Eyes: Pupils equal and round no pallor or injection. ENT, Mouth: Mucous membranes are moist. Respiratory: There are no retractions, lungs are clear to auscultation. Cardiovascular: Regular rate and rhythm. Gastrointestinal: Abdomen is soft with right lower quadrant tenderness. No masses or organomegaly Neurological: Awake and alert, sensory and motor exams grossly normal. Skin: Warm and dry, no rashes. Musculoskeletal: Neck is supple nontender. Extremities symmetrical, full range of motion. Psychiatric: Lethargic but oriented Constitutional: Initial Vital Signs Temperature (C) 34.9 C L 10/17/17 10:53 Heart Rate 86 10/17/17 10:53 Respiratory Rate 16 10/17/17 10:53 Blood Pressure 141/91 H 10/17/17 10:53 O2 Sat (%) 96 10/17/17 10:53 O2 Delivery Mode Room Air Allergies/Adverse Reactions: codeine Allergy (Verified 08/20/17 15:29) ziprasidone [From Geodon] Allergy (Verified 08/20/17 15:29) Home Medications: Medication Instructions Recorded Propranolol Sr [Inderal LA 80mg 80 mg PO DAILY 08/07/17 (*)] LISINOPRIL/HYDROCHLOROTHIAZIDE 1 each PO DAILY 08/16/17 [PRINZIDE 20-25 MG TABLET] Medical Decision Making - Diagnostics Imaging Results: Imaging Impressions Abdomen CT 10/17/17 10:59 Impression: 1. No evidence for acute intra-abdominal or pelvic abnormality. 2. Incidental umbilical hernia with a small loop of bowel within it. Evidence of prior surgery of a left inguinal hernia. 3. Multilevel degenerative disk and degenerative joint disease of the lumbar spine. Results called and discussed with Dr. Silvio Whaley on 10/17/2017, 13:17. CT abdomen pelvis reviewed by me and discussed with Dr. Jay shows no evidence for appendicitis or acute intra-abdominal injury Procedures: IV normal saline, monitor ED Course/Re-evaluation: Re-evaluation 2:00 p.m.. Patient is standing and is ambulatory. He and I discussed imaging and lab results. We discussed treatment plan and criteria for return importance of follow-up and further evaluation. He expresses understanding And agreement Patient is on an are cold by the [place] [employer]. They will come and take the patient to the alcohol recovery Center Differential Diagnosis: I considered alcohol intoxication, closed head injury, acute abdomen including appendicitis - Data Points Laboratory Results: Laboratory Results 10/17/17 10:53 10/17/17 10:53 10/17/17 10/17/17 10:53 10:53 WBC 9.42 10^3/uL 10^3/uL (3.80-9.50) RBC 4.07 10^6/uL L 10^6/uL (4.40-6.38) Hgb 14.6 g/dL g/dL (13.7-17.5) Hct 44.9 % % (40.0-51.0) MCV 110.3 fL H fL (81.5-99.8) MCH 35.9 pg H pg (27.9-34.1) MCHC 32.5 g/dL g/dL (32.4-36.7) RDW 12.0 % % (11.5-15.2) Plt Count 266 10^3/uL 10^3/uL (150-400) MPV 10.5 fL fL (8.7-11.7) Neut % (Auto) 73.1 % % (39.3-74.2) Lymph % (Auto) 15.5 % % (15.0-45.0) [place] % (Auto) 9.6 % % (4.5-13.0) Eos % (Auto) 0.3 % L % (0.6-7.6) Baso % (Auto) 0.7 % % (0.3-1.7) Nucleat RBC Rel Count 0.0 % % (0.0-0.2) Absolute Neuts (auto) 6.88 10^3/uL H 10^3/uL (1.70-6.50) Absolute Lymphs (auto) 1.46 10^3/uL 10^3/uL (1.00-3.00) Absolute Monos (auto) 0.90 10^3/uL H 10^3/uL (0.30-0.80) Absolute Eos (auto) 0.03 10^3/uL 10^3/uL (0.03-0.40) Absolute Basos (auto) 0.07 10^3/uL 10^3/uL (0.02-0.10) Absolute Nucleated RBC 0.00 10^3/uL 10^3/uL (0-0.01) Immature Gran % 0.8 % % (0.0-1.1) Immature Gran # 0.08 10^3/uL 10^3/uL (0.00-0.10) Sodium 150 mEq/L H mEq/L (135-145) Potassium 5.7 mEq/L H mEq/L (3.5-5.2) Chloride 106 mEq/L mEq/L (97-110) Carbon Dioxide 26 mEq/l mEq/l (22-31) Anion Gap 18 mEq/L H mEq/L (8-16) BUN 8 mg/dL mg/dL (7-23) Creatinine 0.6 mg/dL L mg/dL (0.7-1.3) Estimated GFR > 60 Glucose 157 mg/dL H mg/dL (70-100) Calcium 9.4 mg/dL mg/dL (8.5-10.4) Total Bilirubin 1.4 mg/dL mg/dL (0.1-1.4) Conjugated Bilirubin 1.2 mg/dL H mg/dL (0.0-0.5) Unconjugated Bilirubin 0.2 mg/dL mg/dL (0.0-1.1) AST 373 IU/L H IU/L (17-59) ALT 254 IU/L H IU/L (21-72) Alkaline Phosphatase 321 IU/L H IU/L (38-126) Total Protein 8.9 g/dL H g/dL (6.3-8.2) Albumin 4.0 g/dL g/dL (3.5-5.0) Lipase 546 IU/L H IU/L (23-300) Ethyl Alcohol 231 mg/dL H mg/dL (0-10) Medications Given: Discontinued Medications Sodium Chloride (Ns) 1,000 mls @ 0 mls/hr IV EDNOW ONE; Wide Open PRN Reason: Protocol Stop: 10/17/17 11:00 Last Admin: 10/17/17 11:10 Dose: 1,000 mls Departure - Departure Disposition: Home, Routine, Self-Care Clinical Impression: Alcoholic intoxication Qualifiers: Complication of substance-induced condition: uncomplicated Qualified Code(s): F10.920 - Alcohol use, unspecified with intoxication, uncomplicated Condition: Good Instructions: Alcohol Intoxication (ED) Additional Instructions: Return for worsening abdominal pain. Please drink alcohol responsibly Referrals: NONE *PRIMARY CARE P,. [Primary Care Provider] - As per Instructions
[2017-10-17 11:10] LABS: PLATELET COUNT 266 10^3/uL (150-400)
[2017-10-17 11:23] VITALS: RESP 16
[2017-10-17] MEDS ORDERED: IOPAMIDOL (ISOVUE-300) 100 ML BTL ONE (11:49)
[2017-10-17 15:00] VITALS: BP 112/68; PULSE 78; TEMP 96.8; O2SAT 97
== END 2017-10-17 14:44 | disposition home or self-care (01) ==
LOC: EDUNIT#
DX: F10.920 Alcohol use, unspecified with intoxication, uncomplicated (principal); E86.9 Volume depletion, unspecified; I10 Essential (primary) hypertension
CPT/HCPCS: G0480; Q9967

== ENCOUNTER 2017-11-14 14:20 | Emergency (ER) | payer MEDICAID ==
--- NOTE | 2017-11-14 14:24 | EDPHY ---
H & P Time Seen by Provider: 11/14/17 14:22 HPI/ROS: CHIEF COMPLAINT: Intoxication HISTORY OF PRESENT ILLNESS: The patient is a 52-year-old homeless alcoholic man who is brought in by EMS and police for intoxication. He was found sleeping at the bus stop. He denies any injuries. He admits to drinking. Initially he was not able to ambulate on his own but here in the department he is walking. He is very loud and states that he does not want to be here. Police would like to take him to the arc. REVIEW OF SYSTEMS: Unable to obtain secondary to condition EXAM: GENERAL: Disheveled HEAD: Atraumatic, normocephalic. EYES: Pupils equal round and reactive to light, extraocular movements intact, sclera anicteric, conjunctiva are normal. ENT: TMs normal, nares patent, oropharynx clear without exudates. Moist mucous membranes. NECK: Normal range of motion, supple without lymphadenopathy or JVD. LUNGS: Breath sounds clear to auscultation bilaterally and equal. No wheezes rales or rhonchi. HEART: Regular rate and rhythm without murmurs, rubs or gallops. ABDOMEN: Soft, nontender, normoactive bowel sounds. No guarding, no rebound. No masses appreciated. BACK: No CVA tenderness, no spinal tenderness, step-offs or deformities EXTREMITIES: Normal range of motion, no pitting or edema. No clubbing or cyanosis. NEUROLOGICAL: Cranial nerves II through XII grossly intact. Slurred speech, fairly steady gait. 5/5 strength, normal movement in all extremities, normal sensation PSYCH: Belligerent SKIN: Warm, dry, normal turgor, no visible rashes or lesions. Source: Patient, Police, EMS Exam Limitations: Intoxication - Personal History Tetanus Vaccine Date: 2010 - Medical/Surgical History Hx Asthma: No Hx Chronic Respiratory Disease: No Hx Diabetes: No Hx Cardiac Disease: Yes Hx Renal Disease: No Hx Cirrhosis: No Hx Alcoholism: Yes Hx HIV/AIDS: No Hx Splenectomy or Spleen Trauma: No Other PMH: hepais C, hypertension, back/neck. bipolar, manic depressive, psychoaffective. alcohol abuse, - Family History Significant Family History: No pertinent family hx - Social History Smoking Status: Heavy smoker Alcohol Use: Heavy Drug Use: Marijuana Constitutional: Initial Vital Signs Heart Rate 90 03/23/18 14:20 Respiratory Rate 16 11/14/17 14:20 Blood Pressure 140/70 H 11/14/17 14:20 O2 Sat (%) 96 11/14/17 14:20 O2 Delivery Mode Room Air Allergies/Adverse Reactions: codeine Allergy (Verified 11/14/17 14:33) ziprasidone [From Geodon] Allergy (Verified 11/14/17 14:33) Home Medications: Medication Instructions Recorded Propranolol Sr [Inderal LA 80mg 80 mg PO DAILY 08/07/17 (*)] LISINOPRIL/HYDROCHLOROTHIAZIDE 1 each PO DAILY 08/16/17 [PRINZIDE 20-25 MG TABLET] Medical Decision Making ED Course/Re-evaluation: The patient is intoxicated. He is ambulating. He does not wish to be here. No signs of significant injury. No other complaints. Police are here and would like to taken to the arc. I will discharge him at this time. Differential Diagnosis: Partial list of the Differential diagnosis considered include but were not limited to; intoxication, polysubstance abuse and although unlikely based on the history and physical exam, I also considered head injury, infection. - Data Points Medications Given: Discontinued Medications Chlordiazepoxide (Librium 25 Mg Prepack#6) 1 btl TAKEHOME EDNOW ONE Stop: 11/14/17 14:32 Last Admin: 11/14/17 14:32 Dose: 1 btl Departure - Departure Disposition: Law Enforcement/Court/Senior Living Clinical Impression: Alcoholic intoxication Qualifiers: Complication of substance-induced condition: uncomplicated Qualified Code(s): F10.920 - Alcohol use, unspecified with intoxication, uncomplicated Condition: Fair Instructions: Alcohol Intoxication (ED) Referrals: Patient,NotPresent [Unknown] - As per Instructions
[2017-11-14] MEDS ORDERED: CHLORDIAZEPOXIDE 25MG PREPK#6 BTL TAKEHOME ONE ×2 (14:30→14:31)
[2017-11-14 14:36] VITALS: BP 140/70; PULSE 90; RESP 16; O2SAT 96
== END 2017-11-14 14:38 ==
LOC: EDUNIT#
DX: F10.920 Alcohol use, unspecified with intoxication, uncomplicated (principal); I10 Essential (primary) hypertension; F17.200 Nicotine dependence, unspecified, uncomplicated

== ENCOUNTER 2017-12-15 13:37 | Emergency (ER) | payer MEDICAID ==
--- NOTE | 2017-12-15 13:44 | EDPHY ---
H & P Stated Complaint: leg pain Time Seen by Provider: 12/15/17 13:44 HPI/ROS: CHIEF COMPLAINT: Bilateral leg pain HISTORY OF PRESENT ILLNESS: The patient presents to the ED by EMS with complaints of bilateral leg pain. The patient is a homeless alcoholic. The patient has not seen his primary care provider [facility] in several months. The patient has developed some increasing lower extremity edema with stasis dermatitis. Patient denies fever, cough or congestion. The patient does report drinking alcohol earlier today. REVIEW OF SYSTEMS: A comprehensive 10 point review of systems is otherwise negative aside from elements mentioned in the history of present illness. Source: Patient Exam Limitations: No limitations - Personal History Tetanus Vaccine Date: 2010 - Medical/Surgical History Hx Asthma: No Hx Chronic Respiratory Disease: No Hx Diabetes: No Hx Cardiac Disease: Yes Hx Renal Disease: No Hx Cirrhosis: No Hx Alcoholism: Yes Hx HIV/AIDS: No Hx Splenectomy or Spleen Trauma: No Other PMH: hepais C, hypertension, back/neck. bipolar, manic depressive, psychoaffective. alcohol abuse, - Social History Smoking Status: Heavy smoker - Physical Exam Exam: General Appearance: Disheveled elderly male Eyes: Pupils equal and round no pallor or injection ENT, Mouth: Mucous membranes moist Respiratory: There are no retractions, lungs are clear to auscultation Cardiovascular: Regular rate and rhythm Gastrointestinal: Abdomen is soft and nontender, no masses, bowel sounds normal Neurological: 5/5 strength all 4 extremities Skin: Bilateral lower extremity stasis dermatitis, superficial felipe abrasion Musculoskeletal: Neck is supple nontender Extremities: 2+ pitting edema Psychiatric: Patient is oriented X 3, there is no agitation Constitutional: Initial Vital Signs Temperature (C) 36.4 C 12/15/17 13:41 Heart Rate 104 H 12/15/17 13:41 Respiratory Rate 18 12/15/17 13:41 Blood Pressure 164/94 H 12/15/17 13:41 O2 Sat (%) 95 12/15/17 13:41 O2 Delivery Mode Room Air Allergies/Adverse Reactions: codeine Allergy (Verified 12/15/17 13:42) ziprasidone [From Geodon] Allergy (Verified 12/15/17 13:42) Home Medications: Medication Instructions Recorded Propranolol Sr [Inderal LA 80mg 80 mg PO DAILY 08/07/17 (*)] LISINOPRIL/HYDROCHLOROTHIAZIDE 1 each PO DAILY 08/16/17 [PRINZIDE 20-25 MG TABLET] Medical Decision Making ED Course/Re-evaluation: The patient presents to the ED with alcohol intoxication and concerns about bilateral lower extremity pain. The patient is noted to have stasis dermatitis on exam. The patient has no clinical evidence of cellulitis, abscess or necrotizing fasciitis. He has no clinical evidence of congestive heart failure. I suspect that his edema is chronic in nature. The patient is poorly compliant with primary care follow-up. I have advised the patient that he should schedule a follow-up appointment with his primary care provider to see if they would recommend a short course of Lasix. I will not be starting this medication in the emergency department today as he has no evidence of pulmonary edema. The patient was offered transfer [facility] for further assistance with his alcohol dependence however has declined that offer. He is discharged from the emergency department on his own recognizance since. He is clinically sober and ambulatory with a steady gait. - Data Points Medications Given: Discontinued Medications Chlordiazepoxide (Librium 25 Mg Prepack#6) 1 btl TAKEHOME EDNOW ONE Stop: 12/15/17 14:32 Last Admin: 12/15/17 14:39 Dose: 1 btl Departure - Departure Disposition: Home, Routine, Self-Care Clinical Impression: Alcohol intoxication, Peripheral edema Condition: Good Instructions: Chlordiazepoxide (By mouth), Leg Edema (ED) Additional Instructions: 1. Please contact [facility] to schedule a follow-up visit. They may want to put you on medications to help with your leg swelling. Referrals: Bharti Nielsen MD [Doctor of Osteopathy] - As per Instructions
[2017-12-15] MEDS: CHLORDIAZEPOXIDE 25MG PREPK#6 BTL TAKEHOME ONE ×2 (14:39→14:47)
[2017-12-15 14:42] VITALS: BP 156/89
== END 2017-12-15 14:47 | disposition home or self-care (01) ==
LOC: EDUNIT#
DX: R60.0 Localized edema (principal); F10.129 Alcohol abuse with intoxication, unspecified; F17.200 Nicotine dependence, unspecified, uncomplicated; I10 Essential (primary) hypertension

== ENCOUNTER 2017-12-22 17:27 | Emergency (ER) | payer MEDICAID ==
[~2017-12-22 17:27] MED LIST changes: -AZITHROMYCIN 250 MG TAB PO SCH; +DOXYCYCLINE HYCLATE 100 MG CAP/TAB PO SCH
--- NOTE | 2017-12-22 17:38 | EDPHY ---
H & P Stated Complaint: NICK LOWER EXT OPEN SORES Time Seen by Provider: 12/22/17 17:31 HPI/ROS: CHIEF COMPLAINT: Bilateral lower extremity edema HISTORY OF PRESENT ILLNESS: The patient is a chronic alcoholic who is homeless. The patient presents to the ED today complaining of bilateral lower extremity pain. The patient sustained a fall several weeks ago and developed some superficial skin tears. Additionally the patient has lower extremity edema and stasis dermatitis. The patient takes no regular medications. The patient is poorly compliant with follow-up at [facility]. The patient has declined any assistance with his ongoing alcohol dependence at the [facility]. Patient presents to the ED the ambulance today secondary to ongoing leg pain and mild erythematous changes. REVIEW OF SYSTEMS: A comprehensive 10 point review of systems is otherwise negative aside from elements mentioned in the history of present illness. Source: Patient Exam Limitations: No limitations - Personal History Current Tetanus Diphtheria and Acellular Pertussis (TDAP): Yes Tetanus Vaccine Date: 2010 - Medical/Surgical History Hx Asthma: No Hx Chronic Respiratory Disease: No Hx Diabetes: No Hx Cardiac Disease: Yes Hx Renal Disease: No Hx Cirrhosis: No Hx Alcoholism: Yes Hx HIV/AIDS: No Hx Splenectomy or Spleen Trauma: No Other PMH: hepais C, hypertension, back/neck. bipolar, manic depressive, psychoaffective. alcohol abuse, - Social History Smoking Status: Heavy smoker - Physical Exam Exam: General Appearance: Disheveled male, no acute distress Eyes: Pupils equal and round no pallor or injection ENT, Mouth: Mucous membranes moist Respiratory: Faint rhonchi bilateral lung bases which clear with cough Cardiovascular: Regular rate and rhythm Gastrointestinal: Abdomen is soft and nontender, no masses, bowel sounds normal Neurological: 5/5 strength all 4 extremities, patient reports decreased sensation to light touch in his bilateral lower extremities which he reports is a chronic symptom of his neuropathy Skin: Erythematous changes noted to the bilateral lower extremities consistent with stasis dermatitis and healing superficial skin tears Musculoskeletal: Neck is supple nontender Extremities: No clinical evidence of a septic arthritis Constitutional: Initial Vital Signs Temperature (C) 37.0 C 12/22/17 17:31 Heart Rate 113 H 12/22/17 17:31 Respiratory Rate 18 12/22/17 17:31 Blood Pressure 174/108 H 12/22/17 17:31 O2 Sat (%) 91 L 12/22/17 17:31 O2 Delivery Mode Room Air Allergies/Adverse Reactions: codeine Allergy (Verified 12/15/17 13:42) ziprasidone [From Geodon] Allergy (Verified 12/15/17 13:42) Home Medications: Medication Instructions Recorded Propranolol Sr [Inderal LA 80mg 80 mg PO DAILY 08/07/17 (*)] LISINOPRIL/HYDROCHLOROTHIAZIDE 1 each PO DAILY 08/16/17 [PRINZIDE 20-25 MG TABLET] Doxycycline Hyclate 100 mg PO BID #20 tab 12/22/17 Medical Decision Making ED Course/Re-evaluation: The patient presents to the ED with chronic lower extremity stasis dermatitis. He has evidence of old skin tears. There is very minimal surrounding erythema. The patient is afebrile. He has no significant leukocytosis. He is in no acute distress. The patient has no evidence septic arthritis or necrotizing fasciitis. The patient will be given a prescription for doxycycline. This will be filled through the medication assistance program. The patient is advised to take Tylenol and ibuprofen as needed for pain. I have advised the patient to continue to follow up with his primary care provider [facility]. Differential Diagnosis: Differential diagnosis considered includes cellulitis, abscess, necrotizing fasciitis, stasis dermatitis - Data Points Laboratory Results: Laboratory Results 12/22/17 17:40 12/22/17 17:40 12/22/17 12/22/17 17:40 17:40 WBC 8.06 10^3/uL 10^3/uL (3.80-9.50) RBC 3.66 10^6/uL L 10^6/uL (4.40-6.38) Hgb 12.7 g/dL L g/dL (13.7-17.5) Hct 37.4 % L % (40.0-51.0) MCV 102.2 fL H fL (81.5-99.8) MCH 34.7 pg H pg (27.9-34.1) MCHC 34.0 g/dL g/dL (32.4-36.7) RDW 13.1 % % (11.5-15.2) Plt Count 100 10^3/uL L 10^3/uL (150-400) MPV 9.3 fL fL (8.7-11.7) Neut % (Auto) 67.9 % % (39.3-74.2) Lymph % (Auto) 22.6 % % (15.0-45.0) Whitley % (Auto) 8.2 % % (4.5-13.0) Eos % (Auto) 0.5 % L % (0.6-7.6) Baso % (Auto) 0.6 % % (0.3-1.7) Nucleat RBC Rel Count 0.0 % % (0.0-0.2) Absolute Neuts (auto) 5.47 10^3/uL 10^3/uL (1.70-6.50) Absolute Lymphs (auto) 1.82 10^3/uL 10^3/uL (1.00-3.00) Absolute Monos (auto) 0.66 10^3/uL 10^3/uL (0.30-0.80) Absolute Eos (auto) 0.04 10^3/uL 10^3/uL (0.03-0.40) Absolute Basos (auto) 0.05 10^3/uL 10^3/uL (0.02-0.10) Absolute Nucleated RBC 0.00 10^3/uL 10^3/uL (0-0.01) Immature Gran % 0.2 % % (0.0-1.1) Immature Gran # 0.02 10^3/uL 10^3/uL (0.00-0.10) Sodium 147 mEq/L H mEq/L (135-145) Potassium 3.8 mEq/L mEq/L (3.5-5.2) Chloride 108 mEq/L mEq/L (97-110) Carbon Dioxide 24 mEq/l mEq/l (22-31) Anion Gap 15 mEq/L mEq/L (8-16) BUN 4 mg/dL L mg/dL (7-23) Creatinine 0.6 mg/dL L mg/dL (0.7-1.3) Estimated GFR > 60 Glucose 109 mg/dL H mg/dL (70-100) Calcium 7.6 mg/dL L mg/dL (8.5-10.4) Departure - Departure Disposition: Home, Routine, Self-Care Clinical Impression: Stasis dermatitis Condition: Good Instructions: Stasis Dermatitis (ED) Additional Instructions: 1. Take antibiotics as prescribed. 2. I recommend [facility] with [facility]. Referrals: [facility],. [Clinic] - As per Instructions Prescriptions: Doxycycline Hyclate 100 mg PO BID #20 tab
[2017-12-22 17:49] LABS: PLATELET COUNT 100 10^3/uL (150-400)
[2017-12-22 19:36] VITALS: BP 154/82
== END 2017-12-22 19:30 | disposition home or self-care (01) ==
LOC: EDUNIT#
DX: I87.2 Venous insufficiency (chronic) (peripheral) (principal); I10 Essential (primary) hypertension; F17.200 Nicotine dependence, unspecified, uncomplicated

== ENCOUNTER 2017-12-28 12:45 | Emergency (ER) | payer MEDICAID ==
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
[2017-12-28] MEDS ORDERED: IOPAMIDOL (ISOVUE-300) 100 ML BTL ONE (14:23)
[2017-12-28] MEDS ORDERED: LORazepam 2 MG/ML INJ IVP ONE (14:52)
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
[2017-12-28] MEDS ORDERED: CHLORDIAZEPOXIDE 25MG PREPK#6 BTL TAKEHOME ONE (19:09)
[2017-12-28 19:11] VITALS: BP 137/101
== END 2017-12-28 19:26 | disposition home or self-care (01) ==
LOC: EDUNIT#
DX: S00.03XA Contusion of scalp, initial encounter (principal); S40.021A Contusion of right upper arm, initial encounter; F10.10 Alcohol abuse, uncomplicated; F17.200 Nicotine dependence, unspecified, uncomplicated; I10 Essential (primary) hypertension; Y08.89XA Assault by other specified means, initial encounter
CPT/HCPCS: 82947-QW; 96374; J2060; Q9967

== ENCOUNTER 2017-12-29 10:02 | Emergency (ER) | payer MEDICAID ==
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
[2017-12-29] MEDS ORDERED: DOXYCYCLINE HYCLATE 100 MG CAP/TAB PO ONE (10:26)
[2017-12-29] MEDS ORDERED: chlordiazePOXIDE 25 MG CAP PO ONE (10:28)
[2017-12-29] MEDS ORDERED: CHLORDIAZEPOXIDE 25MG PREPK#6 BTL TAKEHOME ONE (10:30)
[2017-12-29 13:45] VITALS: BP 165/112
== END 2017-12-29 13:44 | disposition home or self-care (01) ==
DX: I87.2 Venous insufficiency (chronic) (peripheral) (principal); F10.230 Alcohol dependence with withdrawal, uncomplicated; I10 Essential (primary) hypertension; F17.200 Nicotine dependence, unspecified, uncomplicated

== ENCOUNTER 2018-02-21 16:47 | Emergency (ER) | payer MEDICAID ==
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
[2018-02-21] MEDS ORDERED: CHLORDIAZEPOXIDE 25MG PREPK#6 BTL TAKEHOME ONE ×2 (18:43→18:44)
[2018-02-21 20:46] VITALS: BP 113/75
== END 2018-02-21 20:45 | disposition home or self-care (01) ==
LOC: EDUNIT#
DX: S40.811A Abrasion of right upper arm, initial encounter (principal); S40.812A Abrasion of left upper arm, initial encounter; S80.811A Abrasion, right lower leg, initial encounter; S80.812A Abrasion, left lower leg, initial encounter; I10 Essential (primary) hypertension; E11.9 Type 2 diabetes mellitus without complications; F17.200 Nicotine dependence, unspecified, uncomplicated; F10.920 Alcohol use, unspecified with intoxication, uncomplicated; W18.39XA Other fall on same level, initial encounter; Y99.8 Other external cause status; Y93.89 Activity, other specified

== ENCOUNTER 2018-02-22 01:18 | Emergency (ER) | payer MEDICAID ==
--- NOTE | 2018-02-22 01:48 | EDPHY ---
H & P Stated Complaint: L periorbital ecchymoses, and chest wall pain Time Seen by Provider: 02/22/18 01:26 HPI/ROS: HPI The patient presents brought in by ambulance from the [facility] because of left periorbital ecchymoses and chest wall contusions which were noticed upon his intake there. The patient was discharged from the emergency department about 5-6 hours ago and went directly to the [facility]. Here he was evaluated for intoxication and a fall that he had. He had CT scans of his head and C-spine which did reveal hematoma and soft tissue swelling overlying the supraorbital rim and globe without any orbital fractures or facial fractures or intracranial hemorrhage.. REVIEW OF SYSTEMS Constitutional: No fever, no chills. Eyes: No discharge. ENT: No sore throat. Cardiovascular: No chest pain, no palpitations. Respiratory: No cough, no shortness of breath. Gastrointestinal: No abdominal pain, no vomiting. Genitourinary: No hematuria. Musculoskeletal: No back pain. Skin: No rashes. Neurological: No headache. PMHx: Hypertension, mental health Soc Hx: Frequent ED user, homeless, alcohol abuse PHYSICAL General Appearance: Alert, no distress Eyes: Significant left periorbital and eyelid ecchymoses which are deep purple , Pupils equal and round no pallor or injection ENT, Mouth: Mucous membranes moist Respiratory: There are no retractions, lungs are clear to auscultation Cardiovascular: Regular rate and rhythm Gastrointestinal: Abdomen is soft and non-tender, no masses, bowel sounds normal Neurological: A&O, moves all extremities Skin: Warm and dry, no rashes Musculoskeletal: Neck is supple non tender Extremities: symmetrical, full range of motion Psychiatric: Patient is oriented X 3, there is no agitation Source: Patient, EMS, Old records Exam Limitations: No limitations - Personal History Tetanus Vaccine Date: 2010 - Medical/Surgical History Hx Asthma: No Hx Chronic Respiratory Disease: No Hx Diabetes: No Hx Cardiac Disease: Yes Hx Renal Disease: No Hx Cirrhosis: No Hx Alcoholism: Yes Hx HIV/AIDS: No Hx Splenectomy or Spleen Trauma: No Other PMH: hepatitis C, hypertension, back/neck. bipolar, schizoaffective do. alcohol abuse, porphyria - Social History Smoking Status: Heavy smoker Constitutional: Initial Vital Signs Temperature (C) 36.7 C 02/22/18 01:10 Heart Rate 105 H 02/22/18 01:10 Respiratory Rate 18 02/22/18 01:10 Blood Pressure 159/103 H 02/22/18 01:10 O2 Sat (%) 95 02/22/18 01:10 O2 Delivery Mode Room Air Allergies/Adverse Reactions: codeine Allergy (Verified 12/28/17 12:56) ziprasidone [From Geodon] Allergy (Verified 12/28/17 12:56) Home Medications: Medication Instructions Recorded NK [No Known Home Meds] 02/21/18 Medical Decision Making - Diagnostics Imaging Results: Chest x-ray two views demonstrates no obvious rib fracture, no pneumothorax, no effusion, interpreted by me, radiology interpretation is pending. - Data Points Medications Given: Discontinued Medications Chlordiazepoxide (Librium 25 Mg Prepack#6) 1 btl TAKEHOME EDNOW ONE Stop: 02/22/18 01:54 Last Admin: 02/22/18 01:57 Dose: 1 btl Departure - Departure Disposition: Home, Routine, Self-Care Clinical Impression: Contusion, eyelid, left Qualifiers: Encounter type: initial encounter Qualified Code(s): S00.12XA - Contusion of left eyelid and periocular area, initial encounter Chest wall contusion Qualifiers: Encounter type: initial encounter Laterality: left Qualified Code(s): S20.212A - Contusion of left front wall of thorax, initial encounter Condition: Good Instructions: Black Eye (ED), Contusion in Adults (ED) Additional Instructions: Your CT scan of your head shows that you have a collection of blood in the eyelid and some bruising. There are no broken bones. You should sleep in an upright position in use ice packs on your eye. I have given you a referral to Ophthalmology if your symptoms continue. You do have bruising on your chest wall though your chest x-ray is normal and does not show any broken ribs or collapsed lung. Please return to the emergency department if your worse in any way. Referrals: [facility],. [Clinic] - As per Instructions
[2018-02-22] MEDS ORDERED: CHLORDIAZEPOXIDE 25MG PREPK#6 BTL TAKEHOME ONE (01:53)
[2018-02-22 02:19] VITALS: BP 132/76
== END 2018-02-22 02:25 | disposition home or self-care (01) ==
LOC: EDUNIT#
DX: S00.12XA Contusion of left eyelid and periocular area, initial encounter (principal); S20.212A Contusion of left front wall of thorax, initial encounter; W18.39XA Other fall on same level, initial encounter; Y99.8 Other external cause status; Y93.89 Activity, other specified; F17.200 Nicotine dependence, unspecified, uncomplicated; I10 Essential (primary) hypertension

== ENCOUNTER 2018-02-22 06:39 | Inpatient (IN) | payer MEDICAID ==
--- NOTE | 2018-02-22 07:05 | EDPHY ---
H & P Stated Complaint: unwitnessed [facility] fall Time Seen by Provider: 02/22/18 06:49 HPI/ROS: CHIEF COMPLAINT: Fall, left elbow pain HISTORY OF PRESENT ILLNESS: This is a 52-year-old male who was transferred to the emergency department from the [facility] where he has been undergoing alcohol withdrawal. He tells me that he has not had any alcohol for 2 days and expresses motivation to remain sober. Unfortunately, he fell this morning while at the [facility]. This fall was not witnessed. He tells me that he feels quite unsteady and lightheaded when he stands up and notices that he has been bruising easily. He was brought to the emergency department on February 21 for evaluation of injuries related to a fall that occurred at an unknown time and also evaluation of unsteadiness that was attributed to alcohol intoxication. He was discharged to the [facility] after that visit. During that visit he underwent a CT scan of the head and neck, both of which were negative for traumatic injuries. However , he was noted to have a left periorbital hematoma and thoracic bruising. His chart indicates that he was ambulatory prior to discharge. He was at the [facility] for about 6 hr when he was referred back to the emergency department (around 1:00 a.m. today) for re-evaluation of his injuries. This morning he fell while at the [facility], prompting this visit. The [facility] will not accept him back. REVIEW OF SYSTEMS: A ten point review of systems was performed and is negative with the exception of the items mentioned in the HPI. Past medical history: 1. Alcohol abuse 2. Tobacco abuse 3. Hepatitis-C 4. Bipolar disease 5. Neuropathy 6. Hypertension 7. Diabetes Social history: He is homeless. He has a longstanding history of alcohol and tobacco abuse. General Appearance: Alert. Vital signs reviewed. He arrives with a cervical collar in place, provided by the paramedics. Eyes: Right pupil is 4 mm and briskly reactive. Full extraocular movements bilaterally. Anicteric. OS with purple periorbital swelling, the eye is swollen shut. ENT, Mouth: Mucous membranes are moist, no oropharyngeal erythema or edema. Neck: Cervical spine is nontender in the midline and he has no pain with active range of motion of his neck. I removed his cervical collar at the time of my initial exam. Respiratory: Lungs are clear to auscultation; no wheezes, rales, or rhonchi. Cardiovascular: Regular rate and rhythm; no murmur, rub, or gallop. Gastrointestinal: Abdomen is soft and nontender, hepatomegaly, bowel sounds normal. Skin: Warm and dry, no rashes on exposed skin, normal color. Back: Nontender to palpation over the thoracolumbar spine. No CVAT. Extremities: Scattered bruises and scabs. There is some fresh bleeding from scabbed area on the left anterior mid tibia, no active bleeding at that site at the time of my exam. There is a skin tear on the lateral left elbow and in abrasion on the left elbow with some tenderness to palpation--he has full active range of motion of his left elbow. Neurological: Alert and oriented. Moving all four extremities easily and equally. Psychiatric: Normal affect. - Personal History Tetanus Vaccine Date: 2010 - Medical/Surgical History Hx Asthma: No Hx Chronic Respiratory Disease: No Hx Diabetes: No Hx Cardiac Disease: Yes Hx Renal Disease: No Hx Cirrhosis: No Hx Alcoholism: Yes Hx HIV/AIDS: No Hx Splenectomy or Spleen Trauma: No Other PMH: hepatitis C, hypertension, back/neck. bipolar, schizoaffective do. alcohol abuse, porphyria - Social History Smoking Status: Former smoker Constitutional: Initial Vital Signs Temperature (C) 37.5 C 02/22/18 06:44 Heart Rate 104 H 02/22/18 06:44 Respiratory Rate 20 02/22/18 06:44 Blood Pressure 122/78 H 02/22/18 06:44 O2 Sat (%) 92 02/22/18 06:44 O2 Delivery Mode Room Air Allergies/Adverse Reactions: codeine Allergy (Verified 02/22/18 06:44) ziprasidone [From Geodon] Allergy (Verified 02/22/18 06:44) Home Medications: Medication Instructions Recorded NK [No Known Home Meds] 02/21/18 Medical Decision Making - Diagnostics Imaging Results: Imaging Impressions Elbow X-Ray 02/22/18 07:13 Impression: Probable old ossification at the medial epicondyle. No definite acute fracture. Mild soft tissue swelling. ED Course/Re-evaluation: 52-year-old male who has reportedly been alcohol free for approximately 2 days. He has been undergoing [facility] during that time but has been falling. Fall few days ago resulted in thoracic bruising and a left periorbital hematoma. His fall this morning resulted in a left elbow injury and skin tear plus various scattered bruises. He underwent CT scan of the brain on February 21 and this was not repeated today. He is mentating normally and moving all 4 extremities spontaneously. Sling was placed on the left elbow. Was initially concerned about an elbow fracture but the film was been formally read as showing no acute fracture. He is noted to be orthostatic. [place] [address], and hemoglobin of 9 and 27. Hemoglobin and hematocrit are markedly decreased compared to values from 2 months ago when he had a hemoglobin of 12.7 and a hematocrit of 37.4. Transaminases and alkaline phosphatase are abnormal. Stool is negative for occult blood. No evidence of GI bleeding. [facility] where he has been receiving Librium for withdrawal symptoms. He received a dose of Librium in the emergency department when he became tremulous. He was hypertensive and tachycardic during his stay, likely secondary to alcohol withdrawal. He is in his 2nd day of alcohol withdrawal. He has no history of withdrawal seizures. He he is mentating clearly. He is being admitted to the hospital and appears stable for a medical bed. It remains to be seen how he will do. Elevated liver functions are likely secondary to his alcohol abuse/alcoholic hepatitis and history of hepatitis C. He was given thiamin and a multivitamin in the emergency department. He was unable to ambulate independently due to lightheadedness. He is not encephalopathic but Wernickes is in my differential. - Data Points Laboratory Results: Laboratory Results 02/22/18 08:00 02/22/18 07:12 02/22/18 02/22/18 02/22/18 09:30 08:00 08:00 WBC 4.53 10^3/uL 10^3/uL (3.80-9.50) RBC 2.65 10^6/uL L 10^6/uL (4.40-6.38) Hgb 9.3 g/dL L g/dL (13.7-17.5) Hct 27.1 % L % (40.0-51.0) MCV 102.3 fL H fL (81.5-99.8) MCH 35.1 pg H pg (27.9-34.1) MCHC 34.3 g/dL g/dL (32.4-36.7) RDW 13.6 % % (11.5-15.2) Plt Count 43 10^3/uL L 10^3/uL (150-400) MPV 10.2 fL fL (8.7-11.7) Neut % (Auto) 76.2 % H % (39.3-74.2) Lymph % (Auto) 12.6 % L % (15.0-45.0) Schuyler % (Auto) 9.7 % % (4.5-13.0) Eos % (Auto) 0.4 % L % (0.6-7.6) Baso % (Auto) 0.7 % % (0.3-1.7) Nucleat RBC Rel Count 0.0 % % (0.0-0.2) Absolute Neuts (auto) 3.45 10^3/uL 10^3/uL (1.70-6.50) Absolute Lymphs (auto) 0.57 10^3/uL L 10^3/uL (1.00-3.00) Absolute Monos (auto) 0.44 10^3/uL 10^3/uL (0.30-0.80) Absolute Eos (auto) 0.02 10^3/uL L 10^3/uL (0.03-0.40) Absolute Basos (auto) 0.03 10^3/uL 10^3/uL (0.02-0.10) Absolute Nucleated RBC 0.00 10^3/uL 10^3/uL (0-0.01) Immature Gran % 0.4 % % (0.0-1.1) Immature Gran # 0.02 10^3/uL 10^3/uL (0.00-0.10) Platelet Estimate DECREASED L (ADEQ) PT 16.3 SEC H SEC (12.0-15.0) INR 1.29 H (0.83-1.16) APTT 32.1 SEC SEC (23.0-38.0) Sodium Potassium Chloride Carbon Dioxide Anion Gap BUN Creatinine Estimated GFR Glucose Calcium Total Bilirubin Conjugated Bilirubin Unconjugated Bilirubin AST ALT Alkaline Phosphatase Total Protein Albumin Stool Occult Bld Scrn NEGATIVE (NEGATIVE) 02/22/18 07:12 WBC RBC Hgb Hct MCV MCH MCHC RDW Plt Count MPV Neut % (Auto) Lymph % (Auto) Schuyler % (Auto) Eos % (Auto) Baso % (Auto) Nucleat RBC Rel Count Absolute Neuts (auto) Absolute Lymphs (auto) Absolute Monos (auto) Absolute Eos (auto) Absolute Basos (auto) Absolute Nucleated RBC Immature Gran % Immature Gran # Platelet Estimate PT INR APTT Sodium 131 mEq/L L mEq/L (135-145) Potassium 3.6 mEq/L mEq/L (3.3-5.0) Chloride 98 mEq/L mEq/L (97-110) Carbon Dioxide 27 mEq/l mEq/l (22-31) Anion Gap 6 mEq/L L mEq/L (8-16) BUN 6 mg/dL L mg/dL (7-23) Creatinine 0.5 mg/dL L mg/dL (0.7-1.3) Estimated GFR > 60 Glucose 98 mg/dL mg/dL (70-100) Calcium 7.8 mg/dL L mg/dL (8.5-10.4) Total Bilirubin 2.6 mg/dL H mg/dL (0.1-1.4) Conjugated Bilirubin 1.7 mg/dL H mg/dL (0.0-0.5) Unconjugated Bilirubin 0.9 mg/dL mg/dL (0.0-1.1) AST 324 IU/L H IU/L (17-59) ALT 101 IU/L H IU/L (21-72) Alkaline Phosphatase 210 IU/L H IU/L (38-126) Total Protein 7.2 g/dL g/dL (6.3-8.2) Albumin 3.0 g/dL L g/dL (3.5-5.0) Stool Occult Bld Scrn Medications Given: Folic Acid (Folic Acid) 1 mg PO DAILY ENZO Stop: 08/21/18 10:44 Last Admin: 02/22/18 11:15 Dose: Not Given Thiamine HCl 500 mg/ Sodium (Chloride) 105 mls @ 210 mls/hr IV Q8H ENZO Stop: 02/25/18 10:44 Last Admin: 02/22/18 11:13 Dose: 105 mls Dexmedetomidine/Sodium Chloride (Precedex 4 Mcg/Ml 100 Ml (Premix)) 100 mls @ 0 mls/hr IV CONT ENZO; Per Protocol PRN Reason: Protocol Stop: 08/21/18 13:59 Last Admin: 02/22/18 13:55 Dose: 100 mls Potassium Chloride/Sodium Chloride (Ns W/ 20 Kcl/L) 1,000 mls @ 100 mls/hr IV CONT ENZO Stop: 08/21/18 14:14 Last Admin: 02/22/18 15:03 Dose: 1,000 mls Lorazepam (Ativan Injection) 0 mg IVP Q1H PRN; Protocol PRN Reason: Alcohol Withdrawal w/IV access Stop: 08/21/18 10:34 Last Admin: 02/22/18 13:38 Dose: 2 mg Lorazepam (Ativan Injection) 2 mg IVP Q6HRS ENZO Stop: 02/26/18 17:59 Last Admin: 02/22/18 13:55 Dose: 2 mg Multivitamins (Tab-A-Alber) 1 each PO DAILY ENZO Stop: 08/21/18 10:44 Last Admin: 02/22/18 11:10 Dose: Not Given Discontinued Medications Chlordiazepoxide HCl (Librium) 25 mg PO EDNOW ONE Stop: 02/22/18 09:39 Last Admin: 02/22/18 09:43 Dose: 25 mg Sodium Chloride (Ns) 1,000 mls @ 0 mls/hr IV EDNOW ONE; Wide Open PRN Reason: Protocol Stop: 02/22/18 08:03 Last Admin: 02/22/18 08:07 Dose: 1,000 mls Multivitamins/Minerals (Thera M Plus Tablet) 1 each PO EDNOW ONE Stop: 02/22/18 07:47 Last Admin: 02/22/18 09:01 Dose: 1 each Ondansetron HCl (Zofran) 4 mg IVP EDNOW ONE Stop: 02/22/18 08:03 Last Admin: 02/22/18 08:07 Dose: 4 mg Thiamine HCl (Vitamin B-1) 100 mg PO EDNOW ONE Stop: 02/22/18 07:47 Last Admin: 02/22/18 08:07 Dose: 100 mg Departure - Departure Disposition: [facility] Acute Clinical Impression: Gait instability Alcohol withdrawal Qualifiers: Complication of substance-induced condition: with unspecified complication Qualified Code(s): F10.239 - Alcohol dependence with withdrawal, unspecified Anemia Qualifiers: Anemia type: unspecified type Qualified Code(s): D64.9 - Anemia, unspecified Alcoholic hepatitis Qualifiers: Ascites presence: without ascites Qualified Code(s): K70.10 - Alcoholic hepatitis without ascites Condition: Fair
[2018-02-22] MEDS ORDERED: LET GEL TOPICAL 1 EA SYR TP ONE (07:27)
[2018-02-22] MEDS ORDERED: THIAMINE HCL 100 MG TAB PO ONE (07:46)
[2018-02-22] MEDS ORDERED: MULTIVITAMINS W-MINERALS 1 EACH TAB PO ONE (07:46)
[2018-02-22] MEDS ORDERED: NS 1,000 ML IV ONE (08:02)
[2018-02-22] MEDS ORDERED: ONDANSETRON 4 MG/2 ML VIAL IVP ONE (08:02)
[2018-02-22 08:23] LABS: PLATELET COUNT 43 10^3/uL (150-400)
[2018-02-22 08:25] LABS: INR 1.29 (0.83-1.16); PROTIME(PATIENT) 16.3 SEC (12.0-15.0)
[2018-02-22] MEDS ORDERED: chlordiazePOXIDE 25 MG CAP PO ONE (09:38)
[2018-02-22] MEDS ORDERED: FLUMAZENIL 0.5 MG/5 ML MDV IVP PRN (10:35)
[2018-02-22] MEDS: LORazepam 2 MG/ML INJ IVP PRN ×5 (10:54→13:38)
[2018-02-22] MEDS: MULTIVITAMINS 1 EACH TAB PO SCH (11:10)
[2018-02-22] MEDS: THIAMINE HCL 500 MG in NS 100 ML IV SCH ×2 (11:13→18:34)
[2018-02-22] MEDS: FOLIC ACID 1 MG TAB PO SCH (11:15)
[2018-02-22] MEDS ORDERED: DEXMEDETOMIDINE IN 0.9 % NACL 100 ML IV SCH (13:30)
[2018-02-22] MEDS ORDERED: DEXMEDETOMIDINE/NS 4MCG/ML 100 ML BTL IV ONE (13:51)
[2018-02-22] MEDS: DEXMEDETOMIDINE IN 0.9 % NACL 100 ML IV SCH ×3 (13:55→23:52)
[2018-02-22] MEDS: LORazepam 2 MG/ML INJ IVP SCH ×3 (13:55→23:51)
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
[2018-02-22] MEDS: NS W/ 20 KCl/L 1,000 ML IV SCH (15:03)
--- NOTE | 2018-02-22 15:03 | PDMN ---
Medical Necessity Medical necessity: est los>2mn for acute etoh withdrawal, requiring Ativan 8 mg , CIWA >15, gait instability w/falls, neuropathy vs Wernicke's, elevated LFT's, anemia, thrombocytopenia, hyponatremia, and htn; requires tx to ICU for Precedex , IVF, BP control, eventual PT/OT; comorbid DM,HTN; per order and H&P 02/22/18
[2018-02-22] MEDS ORDERED: LABETALOL HCL 5 MG/ML 20 ML MDV IVP PRN (15:50)
[2018-02-22] MEDS ORDERED: PROPRANOLOL HCL 20 MG TAB PO SCH (16:00)
[2018-02-22] MEDS ORDERED: PROTOCOL K PHOSPHATE 1 DOSE IV PRN (17:01)
[2018-02-22] MEDS ORDERED: PROTOCOL POTASSIUM 1 DOSE MISC PRN (17:01)
[2018-02-22] MEDS ORDERED: PROTOCOL MAGNESIUM 1 DOSE IV PRN (17:01)
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
[2018-02-22] MEDS ORDERED: MAGNESIUM SULF 1 GM/DEXTROSE 100 ML IV ONE (18:36)
[2018-02-22] MEDS: POTASSIUM Cl (KCl) 100 ML IV SCH ×3 (19:30→22:16)
[2018-02-23] MEDS: DEXMEDETOMIDINE IN 0.9 % NACL 100 ML IV SCH ×5 (02:32→23:41)
[2018-02-23] MEDS: THIAMINE HCL 500 MG in NS 100 ML IV SCH ×3 (02:32→19:17)
[2018-02-23] MEDS: LORazepam 2 MG/ML INJ IVP SCH ×2 (02:33→07:48)
[2018-02-23] MEDS: NS W/ 20 KCl/L 1,000 ML IV SCH ×2 (05:32→19:11)
[2018-02-23 05:43] LABS: PLATELET COUNT 45 10^3/uL (150-400)
[2018-02-23] MEDS: MULTIVITAMINS 1 EACH TAB PO SCH (07:38)
[2018-02-23] MEDS: FOLIC ACID 1 MG TAB PO SCH (07:38)
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
--- NOTE | 2018-02-23 09:12 | HOSPPROG ---
Hospitalist Progress Note Assessment/Plan: Acute alcohol withdrawal - quite sedated this am, required precedex and scheduled bzd's overnight -stop precedex, cont CIWA, prn ativan -cont vits, fluids Gait instability / Falls - multiple injuries, but no fractures, likely related to etoh withdrawal. Also consider neuropathy or Wernicke's. -cont Thiamine 500 mg IV q8h -PT/OT when able -consider addition of neuropathic agent Elevated LFT's - Alcohol induced hepatitis on top of hep C virus. DF 15, no indication for steroids. Reviewed Abd CT from 09/2017, no e/o cirrhosis or ascites -Hep C viral load PCR pending, plan for outpt referral -trend LFT's, consider RUQ u/s if on the rise or he develops symptoms Anemia / Thrombocytopenia - likely BM suppression 2/2 etoh abuse, no e/o active bleeding. Heme neg stool. -follow Hyponatremia - hypovolemic, resolved with NS overnight, follow Hypertension - likely related to w/d -cont prn labetalol while NPO -change to oral propranolol when able to take po DVT PPLX - pharm c/i with low plts, SCD's for now Ambriz present due to retention - d/c when he awakens Full code Dispo - cont inpt, SDU Subjective: Pt is very somnolent, barely arouses to firm sternal rub. No events overnight. Too somnolent to take po. No fevers. Ambriz in, good uop. Objective: Vital Signs Temp Pulse Resp BP Pulse Ox 37.8 C 79 15 145/80 H 97 02/23/18 07:43 02/23/18 07:43 02/23/18 07:43 02/23/18 07:43 02/23/18 07:43 Laboratory Results 02/23/18 05:02 02/23/18 05:02 02/22/18 02/23/18 02/24/18 05:59 05:59 05:59 Intake Total 3151 Output Total 3600 Balance -449 PT 16.3 SEC (12.0-15.0) H 02/22/18 08:00 INR 1.29 (0.83-1.16) H 02/22/18 08:00 - Physical Exam Constitutional: no apparent distress Eyes: PERRL Ears, Nose, Mouth, Throat: moist mucous membranes, other (left periorbital ecchymosis) Cardiovascular: regular rate and rhythym Respiratory: no respiratory distress Gastrointestinal: normoactive bowel sounds, soft, non-tender abdomen Skin: warm, other (multiple excoriations, ecchymosis on left posterior / medial thigh) Psychiatric: encephalopathic ICD10 Worksheet Patient Problems: Problems Problem Status Onset Alcohol withdrawal Acute Alcoholic hepatitis Acute Anemia Acute Gait instability Acute Community acquired pneumonia Acute Cough Acute Hypoxemia Acute Tobacco dependence Acute
[2018-02-23] MEDS: LORazepam 2 MG/ML INJ IVP PRN ×4 (10:29→18:10)
[2018-02-23] MEDS: LORazepam 1 MG TAB PO PRN (10:29)
--- NOTE | 2018-02-23 11:21 | WOCRNPDOC ---
STEF Advanced Assessment Note - Skin Integrity Problem, Advanced Assess Right Posterior Lower Leg Dressing Type: Allevyn Life Dressing Description: Intact, Shadowed Closure Description: Not Approximated Exudate Amount: Moderate Exudate Color: Reddish/Yellow Exudate Characteristic(s): Serosanguinous Integumentary Issue Intervention: Dressing Removed, Mechanical Debridement Snow Wound Tissue: Erythema, Macerated, Swollen, Painful/Tender Snow Wound Swelling: Mild Wound Bed Color: Red, Yellow Wound Bed Constitution: Granulation Tissue (30%), Red/[place] - Non Granular Tissue (60%), Loose Slough (10%) Wound Edges: Irregular, Scarred Site Measurement - Head-to-Toe Length X Width X Depth (cm): 2x3.2x0.2 measurements taken after mechanical debridement Skin Integrity Problem Comment: Wound bed cleaned with normal saline and mechanically debrided with gauze. Periwound skin is scarred, pink, and atrophic compared to rest of leg and opposite leg. Unsure of etiology, as patient is homeless and suffers from alcohol abuse, and the wound may be pressure related from device or positional. SANJEEV Rushing in room for care, as well as patient radiation safety officer Rebekah. Left Ischial Tuberosity Pressure Injury Dressing Type: Allevyn Life Dressing Description: Soiled Closure Description: Not Approximated Exudate Color: Reddish/Yellow Exudate Characteristic(s): Serosanguinous Integumentary Issue Intervention: Dressing Changed, Silver Gel Applied Snow Wound Tissue: Erythema, Non-blanching, Swollen Snow Wound Swelling: Mild Wound Bed Color: [place], Red, White Wound Bed Constitution: Granulation Tissue (buds of granulation), Red/[place] - Non Granular Tissue (40%), Adhered Slough (60%) Wound Edges: Irregular Site Measurement - Head-to-Toe Length X Width X Depth (cm): 1.3x1.1x0.2 Pressure Injury Stage: Unstageable Pressure Injury Present on Admit: Yes Skin Integrity Problem Comment: Patient had used bed olsen, and dressing was extremely soiled. Dressing removed, and wound bed cleaned with normal saline and patted dry with gauze. Pressure injury POA, possibly related to sitting on ground or curb, as patient is homeless. Wound care will round again later this week. Right Ischial Tuberosity Pressure Injury Dressing Type: Allevyn Life Exudate Amount: None Integumentary Issue Intervention: Dressing Applied, Silver Gel Applied Snow Wound Tissue: Erythema, Non-blanching, Swollen Snow Wound Swelling: Mild Wound Bed Color: Black, [place], Red Wound Bed Constitution: Granulation Tissue (30%), Red/[place] - Non Granular Tissue (50%), Unstable Eschar (20%, only on wound edges) Wound Edges: Irregular Site Measurement - Head-to-Toe Length X Width X Depth (cm): 1.2x0.8x0.2 Pressure Injury Stage: Stage 3 Pressure Injury Present on Admit: Yes Skin Integrity Problem Comment: Dressing soiled after bed olsen use and removed. Wound bed cleaned with normal saline and patted dry with gauze. Pressure injury present on admission. Able to visualize entire wound bed. Unstable eschar along edges of wound only, not in wound bed. SANJEEV Rushing in room for care, as well as patient radiation safety officer. Wound care will round again later this week. Right Knee Dressing Type: Allevyn Life Dressing Description: Intact, Shadowed Closure Description: Not Approximated Exudate Amount: Excessive Exudate Color: Yellow Exudate Characteristic(s): Serosanguinous Integumentary Issue Intervention: Visualized Under Dressing, Mechanical Debridement Snow Wound Tissue: Erythema, Macerated, Swollen, Painful/Tender Snow Wound Swelling: Mild Wound Bed Color: [place], Red Wound Bed Constitution: Granulation Tissue (40%), Red/[place] - Non Granular Tissue (60%) Wound Edges: Irregular Site Measurement - Head-to-Toe Length X Width X Depth (cm): 3x2.2x0.2 Skin Integrity Problem Comment: Wound bed cleaned with normal saline, mechanical debridement perfomed with gauze. Patient has history of recent falls , and has other scabs and superficial open wounds to anterior generalized body related to falls.
[2018-02-23] MEDS: chlordiazePOXIDE 25 MG CAP PO SCH ×4 (13:44→21:07)
[2018-02-23] MEDS: ONDANSETRON 4 MG/2 ML VIAL IVP PRN (15:14)
--- NOTE | 2018-02-23 15:15 | PDINTPN ---
Air Pollution Inspector Progress Note Assessment/Plan: 52 M with history of etoh and multiple falls, in [facility] out of [facility] and finally admitted 02/22/18 with etoh wd. * etoh wd- over-sedated this am on precedex and scheduled ativan. Moe held but became more uncooperative, although he knew [facility], [facility], date. Finding balance on CIWA; using sitter, redirection, etc. * falls- likely related to etoh * pancytopenia- probably etoh related, though normal in 09/2017. follow for now * LFTs c/w etoh hepatitis and falling. follow * hyponatremia- resolved with IVF Subjective: c/o excess sedation. Very agittated, though aware and oriented. Uncooperative with staff anesthesiologist Objective: Vital Signs Temp Pulse Resp BP Pulse Ox 37.7 C 110 H 18 114/69 93 02/23/18 12:00 02/23/18 12:45 02/23/18 12:00 02/23/18 12:00 02/23/18 12:45 Laboratory Results 02/23/18 05:02 02/23/18 05:02 02/22/18 02/23/18 02/24/18 05:59 05:59 05:59 Intake Total 3151 2675 Output Total 3600 475 Balance -449 2200 PT 16.3 SEC (12.0-15.0) H 02/22/18 08:00 INR 1.29 (0.83-1.16) H 02/22/18 08:00 Physical Exam - Physical Exam General Appearance: alert, mild distress, thin EENT: PERRL/EOMI, other (large ecchymosis on left berny-orbital region) Neck: supple Respiratory: lungs clear, decreased breath sounds, No respiratory distress, No accessory muscle use, No rhonchi, No wheezing Cardiac/Chest: regular rate, rhythm, No edema Abdomen: non-tender, soft, No distended Skin: normal color, warm/dry, No cyanosis Lymphatic: no adenopathy Extremities: No pedal edema Neuro/Psych: alert, cognition abnormalities ICD10 Worksheet Patient Problems: Problems Problem Status Onset Alcohol withdrawal Acute Alcoholic hepatitis Acute Anemia Acute Gait instability Acute Community acquired pneumonia Acute Cough Acute Hypoxemia Acute Tobacco dependence Acute
--- NOTE | 2018-02-23 16:00 | ASMTCMCOM ---
CM Note CM Note Notes: 52yr old male admitted after multiple falls at the [facility], Multiple bruises, elbow inj . He has a Hx of DM-2, HTN, LE neuropathy, Anxiety, Hep C, PTSD, Anemia, ETOH. Patient is Homeless and has refused going to the Longterm in the past. Wants to quit drinking-will be given local ETOH tx res when more alert and oriented. Date Signed: 02/23/2018 03:59 PM Electronically Signed By:Tran Dooley LCSW
[2018-02-23] MEDS: NICOTINE 7 MG/24 HR PATCH TD SCH (16:10)
[2018-02-23] MEDS: POTASSIUM CL 10 MEQ TAB PO ONE ×2 (20:56→21:08)
[2018-02-23] MEDS: POTASSIUM Cl (KCl) 10 MEQ in NS 100 ML IV SCH ×2 (21:35→23:41)
[2018-02-24] MEDS: LORazepam 2 MG/ML INJ IVP PRN ×6 (01:39→22:39)
[2018-02-24] MEDS: THIAMINE HCL 500 MG in NS 100 ML IV SCH ×3 (02:07→19:03)
[2018-02-24] MEDS: DEXMEDETOMIDINE IN 0.9 % NACL 100 ML IV SCH ×3 (04:13→20:54)
[2018-02-24] MEDS: NS W/ 20 KCl/L 1,000 ML IV SCH (06:12)
--- NOTE | 2018-02-24 09:55 | HOSPPROG ---
Hospitalist Progress Note Assessment/Plan: Acute alcohol withdrawal - day 4 of w/d. Precedex stopped yesterday, but was resumed in the afternoon and he remains on small dose precedex this am along with scheduled librium and prn ativan. CIWA max 16 overnight -wean precedex today as able -cont CIWA, prn bzds, vits Gait instability / Falls - multiple injuries, but no fractures, likely related to etoh withdrawal. Also consider neuropathy or Wernicke's. -cont Thiamine 500 mg IV q8h -PT/OT when able -start low dose gabapentin for suspected neuropathy Elevated LFT's - Alcohol induced hepatitis on top of hep C virus. DF 15, no indication for steroids. Reviewed Abd CT from 09/2017, no e/o cirrhosis or ascites -Hep C viral load PCR pending, plan for outpt referral Anemia / Thrombocytopenia - likely BM suppression 2/2 etoh abuse, no e/o active bleeding. Heme neg stool. -follow Hyponatremia - hypovolemic, resolved with NS Hypertension - likely related to w/d, improved today -prn labetalol DVT PPLX - pharm c/i with low plts, SCD's for now Homelessness PTSD Full code Dispo - cont inpt, SDU, discussed with CM regarding dispo options for this homeless man with PTSD Subjective: Pt more awake and alert today. Sittting up in bed, drinking water. Still quite tremulous. Denies pain. Objective: Vital Signs Temp Pulse Resp BP Pulse Ox 37.7 C 73 12 139/84 H 96 02/23/18 15:41 02/24/18 08:00 02/24/18 08:00 02/24/18 08:00 02/24/18 08:00 Laboratory Results 02/24/18 05:15 02/24/18 05:15 02/23/18 02/24/18 02/25/18 05:59 05:59 05:59 Intake Total 3151 5573 Output Total 3600 1025 Balance -449 4548 PT 16.3 SEC (12.0-15.0) H 02/22/18 08:00 INR 1.29 (0.83-1.16) H 02/22/18 08:00 - Physical Exam Constitutional: no apparent distress Eyes: PERRL Ears, Nose, Mouth, Throat: moist mucous membranes Cardiovascular: regular rate and rhythym Respiratory: no respiratory distress Gastrointestinal: normoactive bowel sounds, soft, non-tender abdomen Skin: warm, other (periorbital and right thigh ecchymosis) Neurologic: AAOx3 Psychiatric: interacting appropriately ICD10 Worksheet Patient Problems: Problems Problem Status Onset Alcohol withdrawal Acute Alcoholic hepatitis Acute Anemia Acute Gait instability Acute Community acquired pneumonia Acute Cough Acute Hypoxemia Acute Tobacco dependence Acute
[2018-02-24] MEDS: chlordiazePOXIDE 25 MG CAP PO SCH ×3 (10:10→20:41)
[2018-02-24] MEDS: FOLIC ACID 1 MG TAB PO SCH ×2 (12:49→12:50)
[2018-02-24] MEDS: MULTIVITAMINS 1 EACH TAB PO SCH (12:50)
[2018-02-24] MEDS: NICOTINE 7 MG/24 HR PATCH TD SCH ×3 (12:56→20:54)
--- NOTE | 2018-02-24 15:02 | ASMTCMCOM ---
CM Note CM Note Notes: Patient still very lethargic. This CM asked [facility] [place] [facility] to follow up with patient. She is a Medicaid congressional representative who can help with patient's Mental hlth, SA and Housing needs. Date Signed: 02/24/2018 03:01 PM Electronically Signed By:Tran Dooley LCSW
--- NOTE | 2018-02-24 15:05 | PDINTPN ---
Lieutenant Fire Fighter Progress Note Assessment/Plan: 52 M with history of etoh and multiple falls, in [facility] out of [facility] and finally admitted 02/22/18 with etoh wd. * etoh wd- still requiring precedex but much more controlled today. Not decisional. Continue CIWA * falls- likely related to etoh * pancytopenia- probably etoh related, though normal in 09/2017. follow for now * LFTs c/w etoh hepatitis and falling. follow * hyponatremia- resolved with IVF 02/24/18 15:03 Subjective: more controlled today but returned to precedex drip Objective: Vital Signs Temp Pulse Resp BP Pulse Ox 36.4 C 74 12 109/67 92 02/24/18 14:47 02/24/18 11:55 02/24/18 11:55 02/24/18 11:55 02/24/18 11:55 Laboratory Results 02/24/18 05:15 02/24/18 05:15 02/23/18 02/24/18 02/25/18 05:59 05:59 05:59 Intake Total 3151 5573 690 Output Total 3600 1025 200 Balance -449 4548 490 PT 16.3 SEC (12.0-15.0) H 02/22/18 08:00 INR 1.29 (0.83-1.16) H 02/22/18 08:00 Physical Exam - Physical Exam General Appearance: alert, no apparent distress EENT: PERRL/EOMI, other (ecchymoses left berny-orbital area) Neck: supple Respiratory: lungs clear, normal breath sounds, No respiratory distress, No accessory muscle use Cardiac/Chest: regular rate, rhythm, No edema Abdomen: non-tender, soft, No distended Skin: normal color, warm/dry, No cyanosis Lymphatic: no adenopathy Extremities: No pedal edema Neuro/Psych: cognition abnormalities ICD10 Worksheet Patient Problems: Problems Problem Status Onset Alcohol withdrawal Acute Alcoholic hepatitis Acute Anemia Acute Gait instability Acute Community acquired pneumonia Acute Cough Acute Hypoxemia Acute Tobacco dependence Acute
[2018-02-24] MEDS: oxyCODONE IR 5 MG TAB PO PRN (16:31)
[2018-02-25] MEDS: DEXMEDETOMIDINE IN 0.9 % NACL 100 ML IV SCH ×3 (02:21→14:08)
[2018-02-25] MEDS: THIAMINE HCL 500 MG in NS 100 ML IV SCH (02:22)
[2018-02-25] MEDS: LORazepam 2 MG/ML INJ IVP PRN ×6 (02:58→19:39)
[2018-02-25] MEDS ORDERED: LIDOCAINE 2% JELLY 20 ML (UROJECT) ONE (03:36)
[2018-02-25] MEDS ORDERED: LIDOCAINE 2% JELLY 20 ML (UROJECT) UR ONE (03:45)
[2018-02-25] MEDS ORDERED: POTASSIUM CL 10 MEQ TAB PO ONE (08:44)
[2018-02-25] MEDS ORDERED: MAGNESIUM SULF 1 GM/DEXTROSE 100 ML IV ONE (08:46)
[2018-02-25] MEDS: MULTIVITAMINS 1 EACH TAB PO SCH (09:12)
[2018-02-25] MEDS: chlordiazePOXIDE 25 MG CAP PO SCH ×2 (09:12→15:40)
[2018-02-25] MEDS: NICOTINE 7 MG/24 HR PATCH TD SCH (09:13)
--- NOTE | 2018-02-25 09:29 | HOSPPROG ---
Hospitalist Progress Note Assessment/Plan: Acute alcohol withdrawal - day 5. CIWA 6-11 overnight, only received 2 mg ativan, precedex up-titrated overnight. -wean precedex today -cont CIWA, prn bzds, vits Gait instability / Falls - multiple injuries, but no fractures, likely related to etoh withdrawal. Also consider neuropathy or Wernicke's. -s/p high dose thiamine x3 days, decrease to 250 mg IV daily -PT/OT when able -start low dose gabapentin for suspected neuropathy Elevated LFT's - Alcohol induced hepatitis on top of hep C virus. DF 15, no indication for steroids. Reviewed Abd CT from 09/2017, no e/o cirrhosis or ascites -Hep C viral load PCR pending, plan for outpt referral Anemia / Thrombocytopenia - likely BM suppression 2/2 etoh abuse, no e/o active bleeding. Heme neg stool. -follow Hyponatremia - hypovolemic, resolved with NS Hypertension - likely related to w/d, improved today -prn labetalol DVT PPLX - pharm c/i with low plts, SCD's for now Homelessness PTSD Full code Dispo - cont inpt, SDU, discussed with CM regarding dispo options for this homeless man with PTSD Subjective: Pt sleeping, does not awaken to verbal stimuli, requires light sternal rub. He awakens a bit agitated, shouting "get out of my house". No fevers. Taking some po. Very weak, unstable on his feet. Objective: Vital Signs Temp Pulse Resp BP Pulse Ox 36.6 C 72 20 153/85 H 90 L 02/25/18 06:10 02/25/18 07:36 02/25/18 07:36 02/25/18 07:36 02/25/18 07:36 Laboratory Results 02/25/18 05:18 02/25/18 05:18 02/24/18 02/25/18 02/26/18 05:59 05:59 05:59 Intake Total 5566 9157 Output Total 2854 665 525 Balance 4549 1897 -525 PT 16.3 SEC (12.0-15.0) H 02/22/18 08:00 INR 1.29 (0.83-1.16) H 02/22/18 08:00 - Physical Exam Constitutional: no apparent distress Eyes: PERRL Ears, Nose, Mouth, Throat: moist mucous membranes Cardiovascular: regular rate and rhythym Respiratory: no respiratory distress Gastrointestinal: normoactive bowel sounds, soft, non-tender abdomen Skin: warm, other (periorbital ecchymosis and right thigh ecchymosis) Psychiatric: encephalopathic ICD10 Worksheet Patient Problems: Problems Problem Status Onset Alcohol withdrawal Acute Alcoholic hepatitis Acute Anemia Acute Gait instability Acute Community acquired pneumonia Acute Cough Acute Hypoxemia Acute Tobacco dependence Acute
[2018-02-25] MEDS: GABAPENTIN 300 MG CAP PO SCH ×2 (12:02→19:39)
--- NOTE | 2018-02-25 15:39 | PDINTPN ---
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 * etoh wd- still requiring precedex and librium. Not decisional. Continue CIWA , but should start resolving * falls- likely related to etoh. His head CT 02/21 showed no intraparenchymal hemorrhage, but a repeat should be done regardless. * pancytopenia- probably etoh related, though normal in 09/2017. follow for now * LFTs c/w etoh hepatitis and falling. follow * hyponatremia- resolved with IVF 02/25/18 15:38 Subjective: fluctuating agitation and somnolence Objective: Vital Signs Temp Pulse Resp BP Pulse Ox 36.6 C 65 18 145/84 H 94 02/25/18 06:10 02/25/18 12:00 02/25/18 12:00 02/25/18 12:00 02/25/18 12:00 Laboratory Results 02/25/18 05:18 02/25/18 05:18 02/24/18 02/25/18 02/26/18 05:59 05:59 05:59 Intake Total 5573 2847 600 Output Total 8838 496 7844 Balance 4548 1897 -825 PT 16.3 SEC (12.0-15.0) H 02/22/18 08:00 INR 1.29 (0.83-1.16) H 02/22/18 08:00 Physical Exam - Physical Exam General Appearance: no apparent distress, obtunded EENT: PERRL/EOMI, other (ecchymmosis around left eye) Neck: supple Respiratory: lungs clear, normal breath sounds, No respiratory distress, No accessory muscle use Cardiac/Chest: regular rate, rhythm, No edema Abdomen: non-tender, soft, No distended Skin: normal color, warm/dry, No cyanosis Lymphatic: no adenopathy Extremities: No pedal edema Neuro/Psych: cognition abnormalities ICD10 Worksheet Patient Problems: Problems Problem Status Onset Alcohol withdrawal Acute Alcoholic hepatitis Acute Anemia Acute Gait instability Acute Community acquired pneumonia Acute Cough Acute Hypoxemia Acute Tobacco dependence Acute
[2018-02-25] MEDS: oxyCODONE IR 5 MG TAB PO PRN ×2 (18:27→22:01)
[2018-02-26] MEDS: chlordiazePOXIDE 25 MG CAP PO SCH ×5 (00:35→22:49)
[2018-02-26] MEDS: LORazepam 2 MG/ML INJ IVP PRN ×8 (00:45→22:49)
[2018-02-26] MEDS: ONDANSETRON 4 MG/2 ML VIAL IVP PRN (06:03)
[2018-02-26] MEDS ORDERED: POTASSIUM CL 10 MEQ TAB PO ONE ×2 (07:21→23:46)
[2018-02-26] MEDS: FOLIC ACID 1 MG TAB PO SCH (07:56)
[2018-02-26] MEDS: GABAPENTIN 300 MG CAP PO SCH ×2 (07:56→20:14)
[2018-02-26] MEDS: MULTIVITAMINS 1 EACH TAB PO SCH (07:57)
[2018-02-26] MEDS: NICOTINE 7 MG/24 HR PATCH TD SCH (07:57)
[2018-02-26] MEDS: LORazepam 1 MG TAB PO PRN ×2 (08:01→14:00)
[2018-02-26] MEDS ORDERED: MAGNESIUM SULF 1 GM/DEXTROSE 100 ML IV ONE (08:30)
[2018-02-26] MEDS ORDERED: THIAMINE HCL IV SCH (09:00)
[2018-02-26] MEDS ORDERED: NS IV SCH (09:00)
--- NOTE | 2018-02-26 09:05 | HOSPPROG ---
Hospitalist Progress Note Assessment/Plan: Acute alcohol withdrawal - day 6. CIWA 6-11 overnight, off precedex, still receiving bzd's -cont CIWA, prn bzds, vits Encephalopathy - likely due to above -repeat head CT neg for acute abnormality Fever - 101 this am with tachycardia, unclear etiology, pt unable to localize symptoms, ?atelectatic -CXR/KUB, UA unrevealing -BCx's pending Gait instability / Falls - multiple injuries, but no fractures, likely related to etoh withdrawal. Also consider neuropathy or Wernicke's. -s/p high dose thiamine x3 days, cont 250 mg IV daily for 3 more days -PT/OT today, able to stand with walker -gabapentin started for possible neuropathy component Elevated LFT's - Alcohol induced hepatitis on top of hep C virus. DF 15, no indication for steroids. Reviewed Abd CT from 09/2017, no e/o cirrhosis or ascites -Hep C viral load PCR pending, plan for outpt referral Anemia / Thrombocytopenia - likely BM suppression 2/2 etoh abuse, no e/o active bleeding. Heme neg stool. -follow, plts on the rise Hyponatremia - hypovolemic, resolved with NS Hypertension - likely related to w/d, improved -prn labetalol DVT PPLX - pharm initially deferred with low plts, which are now >100, start lovenox Homelessness PTSD Full code Dispo - cont inpt, transfer to med/surg. Discussed with CM regarding dispo options for this homeless man with PTSD. PT/OT recommending SNF. Subjective: Pt feels better this am. Up in chair, was able to stand with walker and PT assist, but not ambulating well. +fever this am. Denies CP, SOB , cough, N/V, abdominal pain or urinary symptoms. Objective: Vital Signs Temp Pulse Resp BP Pulse Ox 38.5 C H 135 H 20 143/91 H 91 L 02/26/18 08:00 02/26/18 08:00 02/26/18 08:00 02/26/18 08:00 02/26/18 08:00 Laboratory Results 02/26/18 05:30 02/26/18 05:30 02/25/18 02/26/18 02/27/18 05:59 05:59 05:59 Intake Total 2847 2309 Output Total 950 2226 Balance 1897 83 PT 16.3 SEC (12.0-15.0) H 02/22/18 08:00 INR 1.29 (0.83-1.16) H 02/22/18 08:00 - Physical Exam Constitutional: no apparent distress Eyes: PERRL Ears, Nose, Mouth, Throat: moist mucous membranes Cardiovascular: regular rate and rhythym Respiratory: no respiratory distress, clear to auscultation Gastrointestinal: normoactive bowel sounds, soft, non-tender abdomen Skin: warm, other (periorbital and temporal ecchymosis, right thigh ecchymosis) Musculoskeletal: abnormal gait Psychiatric: poor insight, poor judgement, poor memory ICD10 Worksheet Patient Problems: Problems Problem Status Onset Alcohol withdrawal Acute Alcoholic hepatitis Acute Anemia Acute Gait instability Acute Community acquired pneumonia Acute Cough Acute Hypoxemia Acute Tobacco dependence Acute
--- NOTE | 2018-02-26 09:57 | CPEKG ---
Heart Rate: 115 RR Interval: 522 P-R Interval: 88 QRSD Interval: 130 QT Interval: 364 QTC Interval: 504 P [place]: 71 QRS [place]: -49 T Wave [place]: 35 EKG Severity - ABNORMAL ECG - EKG Impression: SINUS TACHYCARDIA EKG Impression: NONSPECIFIC IVCD WITH LAD Electronically Signed By: Faraz Perry 05-Mar-2018 21:13:32
[2018-02-26 10:17] LABS: PLATELET COUNT 99 10^3/uL (150-400)
[2018-02-26] MEDS: oxyCODONE IR 5 MG TAB PO PRN ×3 (11:39→20:14)
--- NOTE | 2018-02-26 14:46 | ASMTCMCOM ---
CM Note CM Note Notes: Per rounds, it is anticipated that Pt will be moving to a med/surg floor. Pt is homeless. Physician would like to consider a SNF for him for rehab purposes as he is quite weak and it's impacting his ability to stay safe physically. CM will follow. D/C Plan: TBD Date Signed: 02/26/2018 02:45 PM Electronically Signed By:Yusra Saul
--- NOTE | 2018-02-26 15:16 | PDINTPN ---
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 * etoh wd- still requiring librium, but precedex off since last pm. Not decisional. Continue CIWA, but should start resolving. Has required haldol for ? personality disorder in the past * falls- likely related to etoh. His head CT 02/21 showed no intraparenchymal hemorrhage, and a repeat was stable. * pancytopenia- probably etoh related, though normal in 09/2017. follow for now * LFTs c/w etoh hepatitis and falling. follow * hyponatremia- resolved with IVF 02/25/18 15:38 02/26/18 15:14 Subjective: more calm today Objective: Vital Signs Temp Pulse Resp BP Pulse Ox 37.4 C 97 18 143/82 H 97 02/26/18 12:00 02/26/18 12:00 02/26/18 12:00 02/26/18 12:00 02/26/18 12:00 Laboratory Results 02/26/18 09:35 02/26/18 09:35 02/25/18 02/26/18 02/27/18 05:59 05:59 05:59 Intake Total 2847 2309 Output Total 950 2226 Balance 1897 83 PT 16.3 SEC (12.0-15.0) H 02/22/18 08:00 INR 1.29 (0.83-1.16) H 02/22/18 08:00 Physical Exam - Physical Exam General Appearance: alert, no apparent distress EENT: PERRL/EOMI Neck: supple Respiratory: lungs clear, normal breath sounds, No respiratory distress, No accessory muscle use Cardiac/Chest: regular rate, rhythm, No edema Abdomen: non-tender, soft, No distended Skin: normal color, warm/dry, No cyanosis Lymphatic: no adenopathy Extremities: No pedal edema Neuro/Psych: cognition abnormalities ICD10 Worksheet Patient Problems: Problems Problem Status Onset Alcohol withdrawal Acute Alcoholic hepatitis Acute Anemia Acute Gait instability Acute Community acquired pneumonia Acute Cough Acute Hypoxemia Acute Tobacco dependence Acute
[2018-02-26] MEDS: ENOXAPARIN 40 MG/0.4 ML SYR SC SCH (15:53)
[2018-02-26] MEDS ORDERED: chlordiazePOXIDE 25 MG CAP PO ONE (19:15)
--- NOTE | 2018-02-26 19:58 | HOSPPROG ---
Hospitalist Progress Note Assessment/Plan: called urgently to pt's bedside as he has acute withdrawal syndrome and attempting to leave the hospital. He was transferred out of the ICU today. He has required high amounts of Ativan and Librium 25mg TID. He is tachy. He has a resting tremor. He is encephalopathic. VS reviewed Gen: confused, anxious HEENT: [place] RESP: no increased work of breathing CV: no edema Psych: anxious Neuro: not alert and oriented to place or time Labs reviewed #Acute encephalopathy #Acute ETOH Withdrawal Plan: give Ativan now increase Librium to 50mg TID can hopefully prevent having to restart Precedex Check ammonia in a.m.' If tries to leave, will need a detainer. Does not have capacity at this time. total critical care time is 30 minutes managing this patient with active ETOH withdrawal Objective: Vital Signs Temp Pulse Resp BP Pulse Ox 37.2 C 96 18 138/83 H 94 02/26/18 16:00 02/26/18 16:00 02/26/18 16:00 02/26/18 16:00 02/26/18 16:00 Laboratory Results 02/26/18 09:35 02/26/18 18:30 02/25/18 02/26/18 02/27/18 05:59 05:59 05:59 Intake Total 2847 2309 600 Output Total 950 2226 Balance 1897 83 600 PT 16.3 SEC (12.0-15.0) H 02/22/18 08:00 INR 1.29 (0.83-1.16) H 02/22/18 08:00 ICD10 Worksheet Patient Problems: Problems Problem Status Onset Alcohol withdrawal Acute Alcoholic hepatitis Acute Anemia Acute Gait instability Acute Community acquired pneumonia Acute Cough Acute Hypoxemia Acute Tobacco dependence Acute
[2018-02-26] MEDS ORDERED: OLANZapine DISINTEGR 10 MG TAB PO ONE (23:32)
[2018-02-26] MEDS ORDERED: NICOTINE 7 MG/24 HR PATCH TD SCH (23:34)
[2018-02-27] MEDS ORDERED: IBUPROFEN 200 MG TAB PO ONE (00:09)
[2018-02-27] MEDS: LORazepam 2 MG/ML INJ IVP PRN ×5 (00:43→18:55)
[2018-02-27] MEDS: NICOTINE 21 MG/24 HR PATCH TD SCH ×2 (00:45→07:35)
[2018-02-27] MEDS: oxyCODONE IR 5 MG TAB PO PRN ×2 (04:54→19:48)
[2018-02-27] MEDS ORDERED: NICOTINE POLACRILEX 2 MG GUM B PRN (05:45)
--- NOTE | 2018-02-27 06:32 | HOSPPROG ---
Hospitalist Progress Note Assessment/Plan: Night Hospitalist Note Paged by RN regarding patient with increasing agitation and wanting to leave to go to [facility] for breakfast and to look for cigarette butts. Patient is significantly weak and sustained fall attempting to get up. I arrived to bedside and discussed his plans for leaving as he is very weak, has had falls already and no way to leave the hospital safely. Patient unable to develop an appropriate plan. At one point he was not sure if I was really standing in front of him or not. After discussion patient is redirectable and amenable to stay for breakfast, await PT/OT and CM evaluation. Patient expresses frustration with feeling like he "is being held hostage." HE does not feel he is withdrawing 6 days out. 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 patient again asked what his plan was for leaving the building but he was not able to develop a plan. Objective: Vital Signs Temp Pulse Resp BP Pulse Ox 37.3 C 105 H 20 116/85 H 97 02/27/18 04:00 02/27/18 04:00 02/27/18 00:00 02/27/18 04:00 02/27/18 04:00 Laboratory Results 02/26/18 09:35 02/27/18 04:35 02/26/18 02/27/18 02/28/18 05:59 05:59 05:59 Intake Total 2309 1300 Output Total 2226 Balance 83 1300 PT 16.3 SEC (12.0-15.0) H 02/22/18 08:00 INR 1.29 (0.83-1.16) H 02/22/18 08:00 ICD10 Worksheet Patient Problems: Problems Problem Status Onset Alcohol withdrawal Acute Alcoholic hepatitis Acute Anemia Acute Gait instability Acute Community acquired pneumonia Acute Cough Acute Hypoxemia Acute Tobacco dependence Acute
[2018-02-27] MEDS: GABAPENTIN 300 MG CAP PO SCH (07:35)
[2018-02-27] MEDS: FOLIC ACID 1 MG TAB PO SCH (07:35)
[2018-02-27] MEDS: chlordiazePOXIDE 25 MG CAP PO SCH ×3 (07:36→17:31)
[2018-02-27] MEDS: THIAMINE HCL 100 MG TAB PO SCH (07:36)
[2018-02-27] MEDS: ENOXAPARIN 40 MG/0.4 ML SYR SC SCH (07:36)
[2018-02-27] MEDS: MULTIVITAMINS 1 EACH TAB PO SCH (07:36)
[2018-02-27] MEDS ORDERED: MAGNESIUM SULF 1 GM/DEXTROSE 100 ML IV ONE (10:54)
--- NOTE | 2018-02-27 13:43 | HOSPPROG ---
Hospitalist Progress Note Assessment/Plan: #Acute alcohol withdrawal - day 7. CIWA high overnigh. off precedex, still receiving bzd's -cont CIWA - Ativan -cont Librium at current dose -He appears more stable than last night Encephalopathy - likely due to above -repeat head CT neg for acute abnormality Isolated one time Fever - appears resolved. no fever documented overnight or this morning. BP stable Gait instability / Falls - multiple injuries, but no fractures, likely related to etoh withdrawal. Also consider neuropathy or Wernicke's. -thiamine -PT/OT today, able to stand with walker -gabapentin started for possible neuropathy component. Will cont at current dose. Would not increase yet given Encephalopathy Elevated LFT's - Alcohol induced hepatitis on top of hep C virus. DF 15, no indication for steroids. Reviewed Abd CT from 09/2017, no e/o cirrhosis or ascites -Hep C viral load PCR pending, plan for outpt referral Anemia / Thrombocytopenia - likely BM suppression 2/2 etoh abuse, no e/o active bleeding. Heme neg stool. -follow, plts on the rise, will recheck in the a.m. Hyponatremia - hypovolemic, resolved with NS Hypertension - likely related to w/d, improved -prn labetalol Pedal edema. monitor for now. borderline low oral intake prevents the use of Lasix x 1 for now DVT PPLX - pharm initially deferred with low plts, which are now >100, start lovenox Homelessness PTSD cont inpatient Subjective: no cp or sob. Still agitated but improving from last night. no n/v Objective: Vital Signs Temp Pulse Resp BP Pulse Ox 37.2 C 115 H 16 147/86 H 92 02/27/18 12:00 02/27/18 12:00 02/27/18 12:00 02/27/18 12:00 02/27/18 12:00 Laboratory Results 02/26/18 09:35 02/27/18 04:35 02/26/18 02/27/18 02/28/18 05:59 05:59 05:59 Intake Total 2309 1300 Output Total 2226 Balance 83 1300 PT 16.3 SEC (12.0-15.0) H 02/22/18 08:00 INR 1.29 (0.83-1.16) H 02/22/18 08:00 - Physical Exam Constitutional: no apparent distress Eyes: PERRL, EOMI Ears, Nose, Mouth, Throat: moist mucous membranes, hearing normal Cardiovascular: regular rate and rhythym, edema (trace bilateral) Respiratory: no respiratory distress Gastrointestinal: normoactive bowel sounds Skin: warm Neurologic: No AAOx3 Psychiatric: encephalopathic Lymph, Heme, Immunologic: No petechiae ICD10 Worksheet Patient Problems: Problems Problem Status Onset Alcohol withdrawal Acute Alcoholic hepatitis Acute Anemia Acute Gait instability Acute Community acquired pneumonia Acute Cough Acute Hypoxemia Acute Tobacco dependence Acute
--- NOTE | 2018-02-27 14:53 | WOCRNPDOC ---
WOCRN Advanced Assessment Note - Skin Integrity Problem, Advanced Assess Right Posterior Lower Leg Dressing Type: Allevyn Life Dressing Description: Intact, Shadowed Exudate Amount: Minimal Exudate Color: Reddish/Yellow Integumentary Issue Intervention: Dressing Changed, Dressing Initialed & Dated Snow Wound Swelling: None Wound Bed Color: Red, Yellow Wound Bed Constitution: Granulation Tissue (90%), Adhered Slough (10%) Wound Edges: Epithelizing, Attached Site Measurement - Head-to-Toe Length X Width X Depth (cm): 1.4x4.2x0.1 Skin Integrity Problem Comment: Dressing removed and wound cleansed with ns and mechanically debrided with gauze. Wound gel applied. New dressing applied. Wound care will round again next week. Taylor STRATEGIC PARTNER DEVELOPMENT MANAGER in room for care. Left Lower Arm Abrasion Dressing Type: Allevyn Life Dressing Description: Clean/Dry, Intact Integumentary Issue Intervention: Visualized Under Dressing Snow Wound Tissue: Blanching Snow Wound Swelling: None Wound Bed Color: Red, Yellow Wound Bed Constitution: Granulation Tissue (90%), Adhered Slough (10%) Wound Edges: Epithelizing, Attached Site Measurement - Head-to-Toe Length X Width X Depth (cm): 2.3x2.4x.01 Skin Integrity Problem Comment: Wound bed cleansed with ns and gauze. Wound gel applied and Allevyn dressing in place. Taylor STRATEGIC PARTNER DEVELOPMENT MANAGER in room for care. Left Ischial Tuberosity Pressure Injury Snow Wound Tissue: Blanching Snow Wound Swelling: None Wound Bed Constitution: Granulation Tissue (15%), Adhered Slough (85%) Site Measurement - Head-to-Toe Length X Width X Depth (cm): 1.4x1x0.1 Pressure Injury Stage: Unstageable Pressure Injury Present on Admit: Yes Skin Integrity Problem Comment: Wound open to air. Cleansed with ns and mechanically debrided with gauze. Wound gel applied and an Allevyn life dressing in place. Wound care will round again next week. Taylor STRATEGIC PARTNER DEVELOPMENT MANAGER in room for cares. Right Ischial Tuberosity Pressure Injury Dressing Type: Allevyn Life Dressing Description: Clean/Dry, Intact Exudate Amount: None Integumentary Issue Intervention: Dressing Changed, Dressing Initialed & Dated Snow Wound Tissue: Blanching Wound Bed Color: Red, Yellow Wound Bed Constitution: Granulation Tissue (90%), Adhered Slough (5%) Wound Edges: Epithelizing, Attached Site Measurement - Head-to-Toe Length X Width X Depth (cm): 0.8x0.6x0.2 Pressure Injury Stage: Stage 3 Pressure Injury Present on Admit: Yes Skin Integrity Problem Comment: Dressing removed and wound cleansed with ns. Wound gel applied and a new Allevyn dressing applied. Taylor STRATEGIC PARTNER DEVELOPMENT MANAGER in room for care. Right Anterior Knee Dressing Type: Open to Air Wound Bed Constitution: Scab Site Measurement - Head-to-Toe Length X Width X Depth (cm): 2x1.5x scab Skin Integrity Problem Comment: Wound is open to air. Orders were written for wound gel and Allevyn Life dressing. Asked Aaliyah PACE to place dressing. Will continue with current orders. Taylor STRATEGIC PARTNER DEVELOPMENT MANAGER in room for care. Left Anterior Lower Leg Dressing Type: Open to Air Wound Bed Constitution: Scab Site Measurement - Head-to-Toe Length X Width X Depth (cm): 4.8x1.5x raised scab Skin Integrity Problem Comment: Large scab that is open to air. Will initiate moist wound healing. Asked Aaliyah PCAE to place dressing. Taylor STRATEGIC PARTNER DEVELOPMENT MANAGER in room for care.
[2018-02-27] MEDS: ACETAMINOPHEN 325 MG TAB PO PRN (16:06)
[2018-02-27] MEDS: ONDANSETRON DISINTEGRATING 4 MG TAB PO PRN (20:31)
[2018-02-28] MEDS ORDERED: POTASSIUM CL 10 MEQ TAB PO ONE ×3 (00:08→07:14)
[2018-02-28] MEDS: GABAPENTIN 300 MG CAP PO SCH ×3 (00:29→20:31)
[2018-02-28] MEDS: chlordiazePOXIDE 25 MG CAP PO SCH ×4 (00:29→20:31)
[2018-02-28] MEDS: ACETAMINOPHEN 325 MG TAB PO PRN (00:29)
[2018-02-28] MEDS: LORazepam 1 MG TAB PO PRN ×3 (02:24→20:36)
[2018-02-28 06:00] LABS: PLATELET COUNT 91 10^3/uL (150-400)
[2018-02-28] MEDS: MULTIVITAMINS 1 EACH TAB PO SCH (10:43)
[2018-02-28] MEDS: FOLIC ACID 1 MG TAB PO SCH (10:43)
[2018-02-28] MEDS: oxyCODONE IR 5 MG TAB PO PRN ×2 (10:44→13:39)
[2018-02-28] MEDS: THIAMINE HCL 100 MG TAB PO SCH (11:23)
[2018-02-28] MEDS ORDERED: FUROSEMIDE 20 MG TAB PO ONE (11:52)
--- NOTE | 2018-02-28 11:56 | HOSPPROG ---
Hospitalist Progress Note Assessment/Plan: #Acute alcohol withdrawal - day 7. CIWA high overnigh. off precedex, still receiving bzd's -cont CIWA - Ativan -cont Librium at current dose -He is improving. cognition is better today. no tachycardia #Question Pneumonia, + cough, + fever -?Aspiration -will start Augment Encephalopathy - likely due to above -repeat head CT neg for acute abnormality Gait instability / Falls - multiple injuries, but no fractures, likely related to etoh withdrawal. Also consider neuropathy or Wernicke's. -thiamine -PT/OT today, able to stand with walker -gabapentin started for possible neuropathy component. Will cont at current dose. Would not increase yet given Encephalopathy Elevated LFT's - Alcohol induced hepatitis on top of hep C virus. DF 15, no indication for steroids. Reviewed Abd CT from 09/2017, no e/o cirrhosis or ascites -Hep C viral load PCR pending, plan for outpt referral Anemia / Thrombocytopenia - likely BM suppression 2/2 etoh abuse, no e/o active bleeding. Heme neg stool. Hyponatremia - hypovolemic, resolved with NS Hypertension - likely related to w/d, improved -prn labetalol Pedal edema. monitor for now. -Lasix x 1 DVT PPLX - pharm initially deferred with low plts, which are now >100, start lovenox Homelessness PTSD cont inpatient cont Librium at current dose, consider decreasing tomorrow. Agitation and mentation significantly improving He will likely need placement as he is unable to ambulate. Subjective: no cp or sob. + cough. eating well. agitation is improving. Very weak, unable to ambulate Objective: Vital Signs Temp Pulse Resp BP Pulse Ox 37.2 C 102 H 16 140/87 H 91 L 02/28/18 08:00 02/28/18 08:00 02/28/18 08:00 02/28/18 08:00 02/28/18 08:00 Laboratory Results 02/28/18 04:47 02/28/18 04:47 02/27/18 02/28/18 03/01/18 05:59 05:59 05:59 Intake Total 1300 1270 Output Total 580 Balance 1300 690 PT 16.3 SEC (12.0-15.0) H 02/22/18 08:00 INR 1.29 (0.83-1.16) H 02/22/18 08:00 - Physical Exam Constitutional: no apparent distress Eyes: PERRL, EOMI Ears, Nose, Mouth, Throat: moist mucous membranes Cardiovascular: regular rate and rhythym Respiratory: no respiratory distress, reduced air movement Gastrointestinal: normoactive bowel sounds Skin: warm Neurologic: No AAOx3 Psychiatric: interacting appropriately, not anxious, not encephalopathic Lymph, Heme, Immunologic: No petechiae ICD10 Worksheet Patient Problems: Problems Problem Status Onset Alcohol withdrawal Acute Alcoholic hepatitis Acute Anemia Acute Gait instability Acute Community acquired pneumonia Acute Cough Acute Hypoxemia Acute Tobacco dependence Acute
[2018-02-28] MEDS: AMOXICILLIN/CLAVULANATE POT 875/125 MG TAB PO SCH ×2 (12:09→20:31)
[2018-02-28] MEDS: ENOXAPARIN 40 MG/0.4 ML SYR SC SCH (12:12)
[2018-02-28] MEDS: NICOTINE 21 MG/24 HR PATCH TD SCH (12:16)
--- NOTE | 2018-02-28 14:06 | ASMTCMCOM ---
CM Note CM Note Notes: Patient clearing but still requiring benzos for withdrawal. He's impulsive so a sitter is required. He also cannot stay awake. He cannot ambulate independently. Given the above, we have not been able to talk to him about SNF. Since he has Medicaid, he'll need to agree to a 30 day stay. Case Management to follow when patient is able to discuss. Date Signed: 02/28/2018 02:05 PM Electronically Signed By:Britney Odell RN
[2018-02-28] MEDS ORDERED: MAGNESIUM HYDROXIDE 30 ML UDCUP PO PRN (18:57)
[2018-02-28] MEDS ORDERED: POLYETHYLENE GLYCOL 3350 17 GM PKT PO PRN (18:57)
[2018-02-28] MEDS ORDERED: LACTULOSE 20 GM/30 ML UDCUP PO PRN (18:57)
[2018-02-28] MEDS ORDERED: BISACODYL 10 MG SUPP PR PRN (18:57)
[2018-02-28] MEDS: SENNOSIDES/DOCUSATE SODIUM TAB PO SCH (20:30)
[2018-03-01] MEDS: ACETAMINOPHEN 325 MG TAB PO PRN ×2 (00:18→15:37)
[2018-03-01] MEDS: LORazepam 1 MG TAB PO PRN ×3 (00:19→21:29)
[2018-03-01] MEDS: ONDANSETRON DISINTEGRATING 4 MG TAB PO PRN (00:19)
[2018-03-01] MEDS: oxyCODONE IR 5 MG TAB PO PRN ×2 (00:21→21:29)
[2018-03-01] MEDS ORDERED: POTASSIUM CL 10 MEQ TAB PO ONE (07:12)
[2018-03-01] MEDS: chlordiazePOXIDE 25 MG CAP PO SCH (08:12)
[2018-03-01] MEDS: GABAPENTIN 300 MG CAP PO SCH ×3 (08:13→21:29)
[2018-03-01] MEDS: THIAMINE HCL 100 MG TAB PO SCH (08:13)
[2018-03-01] MEDS: FOLIC ACID 1 MG TAB PO SCH (08:13)
[2018-03-01] MEDS: MULTIVITAMINS 1 EACH TAB PO SCH (08:13)
[2018-03-01] MEDS: SENNOSIDES/DOCUSATE SODIUM TAB PO SCH ×2 (08:14→21:30)
[2018-03-01] MEDS: AMOXICILLIN/CLAVULANATE POT 875/125 MG TAB PO SCH ×2 (08:14→21:29)
[2018-03-01] MEDS: NICOTINE 21 MG/24 HR PATCH TD SCH (08:15)
--- NOTE | 2018-03-01 09:21 | HOSPPROG ---
Hospitalist Progress Note Assessment/Plan: #Acute alcohol withdrawal - day 7. CIWA high overnigh. off precedex, still receiving bzd's -cont CIWA - Ativan -cont Librium but change to PRN only -He is improving. cognition is better today. no tachycardia #Question Pneumonia, + cough, + fever -?Aspiration -Augmentin day 10/01 Encephalopathy - likely due to above -repeat head CT neg for acute abnormality Gait instability / Falls - multiple injuries, but no fractures, likely related to etoh withdrawal. Also consider neuropathy or Wernicke's. -thiamine -PT/OT today, able to stand with walker -gabapentin started for possible neuropathy component. Will cont at current dose. Would not increase yet given Encephalopathy -Needs SNF Elevated LFT's - Alcohol induced hepatitis on top of hep C virus. DF 15, no indication for steroids. Reviewed Abd CT from 09/2017, no e/o cirrhosis or ascites -Hep C viral load PCR pending, plan for outpt referral Anemia / Thrombocytopenia - likely BM suppression / etoh abuse, no e/o active bleeding. Heme neg stool. Hyponatremia - hypovolemic, resolved with NS Hypertension - likely related to w/d, improved -prn labetalol Pedal edema. monitor for now. -Lasix x 1 on 02/28 Neuropathy: increase Gabapentin to 300mg TID. If still symptomatic in a few days , would increase to 600 tid DVT PPLX - Lovenox Homelessness PTSD Dispo: needs a SNF, cannot walk, unable to discharge safely. Subjective: a bit sedated today. breathing and cough are better. Pedal edema is better Objective: Vital Signs Temp Pulse Resp BP Pulse Ox 36.6 C 85 16 154/98 H 98 03/01/18 07:08 03/01/18 07:08 03/01/18 07:08 03/01/18 07:08 03/01/18 07:08 Laboratory Results 02/28/18 04:47 03/01/18 04:37 02/28/18 03/01/18 03/02/18 05:59 05:59 05:59 Intake Total 1270 250 Output Total 580 850 Balance 690 -600 PT 16.3 SEC (12.0-15.0) H 02/22/18 08:00 INR 1.29 (0.83-1.16) H 02/22/18 08:00 - Physical Exam Constitutional: no apparent distress Eyes: PERRL, EOMI Ears, Nose, Mouth, Throat: moist mucous membranes Cardiovascular: regular rate and rhythym, No edema Respiratory: no respiratory distress Gastrointestinal: normoactive bowel sounds Skin: warm Musculoskeletal: generalized weakness Neurologic: No AAOx3 Psychiatric: interacting appropriately, encephalopathic Lymph, Heme, Immunologic: No petechiae ICD10 Worksheet Patient Problems: Problems Problem Status Onset Alcohol withdrawal Acute Alcoholic hepatitis Acute Anemia Acute Gait instability Acute Community acquired pneumonia Acute Cough Acute Hypoxemia Acute Tobacco dependence Acute
[2018-03-01] MEDS: ENOXAPARIN 40 MG/0.4 ML SYR SC SCH ×2 (09:24→09:28)
--- NOTE | 2018-03-01 14:17 | ASMTCMCOM ---
CM Note CM Note Notes: Patient having a difficult time feeding himself and drinking out of a container. Needs assist when up walking with a walker. Asked if he would be interested in going to a SNF for rehab purposes. He is not interested in going anywhere for 30 days. Date Signed: 03/01/2018 02:16 PM Electronically Signed By:Tran Dooley LCSW
[2018-03-01] MEDS: chlordiazePOXIDE 25 MG CAP PO PRN (15:28)
[2018-03-02] MEDS: chlordiazePOXIDE 25 MG CAP PO PRN (03:04)
[2018-03-02] MEDS: oxyCODONE IR 5 MG TAB PO PRN (07:45)
[2018-03-02] MEDS: LORazepam 2 MG/ML INJ IVP PRN (07:46)
[2018-03-02] MEDS: ONDANSETRON 4 MG/2 ML VIAL IVP PRN (07:46)
--- NOTE | 2018-03-02 14:23 | HOSPPROG ---
Hospitalist Progress Note Assessment/Plan: 52y male with falls. First encounter, chart reviewed. D/W CM. #Acute alcohol withdrawal - day 8 -CIWA high overnight -still receiving bzd's -cont CIWA - Ativan -cont Librium but change to PRN only #Question Pneumonia, + cough, + fever -?Aspiration -Augmentin day 10/29 #Encephalopathy - likely due to above -repeat head CT neg for acute abnormality #Gait instability / Falls - multiple injuries, but no fractures, likely related to etoh withdrawal. Also consider neuropathy or Wernicke's. -thiamine -PT/OT, able to stand with walker -gabapentin started for possible neuropathy component. Will cont at current dose. Would not increase yet given Encephalopathy -Needs SNF, refuses. #Elevated LFT's - Alcohol induced hepatitis on top of hep C virus. -Hep C viral load PCR pending, plan for outpt referral #Anemia / Thrombocytopenia - likely BM suppression 2/2 etoh abuse, no e/o active bleeding. Heme neg stool. #Hyponatremia - hypovolemic, resolved with NS #Hypertension - likely related to w/d, improved -prn labetalol #Pedal edema. monitor for now. -Lasix x 1 on 02/28 #Neuropathy: increase Gabapentin to 300mg TID. If still symptomatic in a few days, would increase to 600 tid #DVT PPLX - Lovenox #Homelessness -pt refusing SNF -will eval tomorrow PTSD Dispo: needs a SNF, cannot walk, unable to discharge safely. Subjective: Asleep, arousable. C/O pain. Some confusion. Objective: Vital Signs Temp Pulse Resp BP Pulse Ox 36.7 C 82 16 132/82 H 99 03/02/18 07:42 03/02/18 12:00 03/02/18 12:00 03/02/18 12:00 03/02/18 12:00 Laboratory Results 02/28/18 04:47 03/01/18 04:37 03/01/18 03/02/18 03/03/18 05:59 05:59 05:59 Intake Total 250 490 Output Total 850 500 Balance -600 -10 PT 16.3 SEC (12.0-15.0) H 02/22/18 08:00 INR 1.29 (0.83-1.16) H 02/22/18 08:00 - Physical Exam Constitutional: appears nourished, chronically ill appearing, uncomfortable Eyes: PERRL, anicteric sclera, EOMI Ears, Nose, Mouth, Throat: moist mucous membranes, hearing normal, ears appear normal, other (trauma) Cardiovascular: regular rate and rhythym, No JVD, No edema Respiratory: no respiratory distress, no rales or rhonchi, reduced air movement Gastrointestinal: normoactive bowel sounds, No tenderness, No ascites Skin: warm, abrasion, fluctuance Musculoskeletal: normal joint ROM, no joint effusions, generalized weakness Neurologic: No AAOx3 Psychiatric: not anxious, poor insight, poor judgement, poor memory ICD10 Worksheet Patient Problems: Problems Problem Status Onset Cough Acute Community acquired pneumonia Acute Tobacco dependence Acute Hypoxemia Acute Alcohol withdrawal Acute Anemia Acute Alcoholic hepatitis Acute Gait instability Acute
[2018-03-02] MEDS: FOLIC ACID 1 MG TAB PO SCH (17:13)
[2018-03-02] MEDS: THIAMINE HCL 100 MG TAB PO SCH (17:13)
[2018-03-02] MEDS: GABAPENTIN 300 MG CAP PO SCH ×2 (17:14)
[2018-03-02] MEDS: MULTIVITAMINS 1 EACH TAB PO SCH (17:15)
[2018-03-02] MEDS: NICOTINE 21 MG/24 HR PATCH TD SCH (17:15)
[2018-03-02] MEDS: ENOXAPARIN 40 MG/0.4 ML SYR SC SCH (17:16)
[2018-03-02] MEDS: AMOXICILLIN/CLAVULANATE POT 875/125 MG TAB PO SCH ×2 (18:20→19:50)
[2018-03-02] MEDS: SENNOSIDES/DOCUSATE SODIUM TAB PO SCH ×2 (18:21→19:49)
[2018-03-02] MEDS: ONDANSETRON DISINTEGRATING 4 MG TAB PO PRN (19:48)
[2018-03-03] MEDS: ONDANSETRON DISINTEGRATING 4 MG TAB PO PRN (00:40)
[2018-03-03] MEDS: GABAPENTIN 300 MG CAP PO SCH ×2 (00:41→08:23)
[2018-03-03] MEDS: oxyCODONE IR 5 MG TAB PO PRN ×2 (00:41→10:43)
[2018-03-03] MEDS: SENNOSIDES/DOCUSATE SODIUM TAB PO SCH ×2 (08:22→21:53)
[2018-03-03] MEDS: NICOTINE 21 MG/24 HR PATCH TD SCH (08:22)
[2018-03-03] MEDS: THIAMINE HCL 100 MG TAB PO SCH (08:23)
[2018-03-03] MEDS: AMOXICILLIN/CLAVULANATE POT 875/125 MG TAB PO SCH ×2 (08:23→21:51)
[2018-03-03] MEDS: FOLIC ACID 1 MG TAB PO SCH (08:23)
[2018-03-03] MEDS: ENOXAPARIN 40 MG/0.4 ML SYR SC SCH (08:23)
[2018-03-03] MEDS: MULTIVITAMINS 1 EACH TAB PO SCH (08:23)
[2018-03-03] MEDS: LORazepam 2 MG/ML INJ IVP PRN (10:43)
--- NOTE | 2018-03-03 12:56 | HOSPPROG ---
Hospitalist Progress Note Assessment/Plan: 52y male with falls. D/W CM. #Acute alcohol withdrawal - day 9 -CIWA -still receiving bzd's, try to DC -cont CIWA - Ativan -cont Librium but PRN only #Question Pneumonia, + cough, + fever -?Aspiration -Augmentin day 11/29 #Encephalopathy - likely due to above -repeat head CT neg for acute abnormality -dc sedating medications #Gait instability / Falls - multiple injuries, but no fractures, likely related to etoh withdrawal. Also consider neuropathy or Wernicke's. -thiamine -PT/OT, able to stand with walker -gabapentin started for possible neuropathy component. Will DC given Encephalopathy -Needs SNF, refuses. #Elevated LFT's - Alcohol induced hepatitis on top of hep C virus. -Hep C viral load PCR elevated, plan for outpt referral #Anemia / Thrombocytopenia - likely BM suppression 2/2 etoh abuse, no e/o active bleeding. Heme neg stool. #Hyponatremia - hypovolemic, resolved with NS #Hypertension - likely related to w/d, improved -prn labetalol #Pedal edema. monitor for now. -Lasix x 1 on 02/28 #Neuropathy: DC jagdish due to sedation -restart if pt able to complain of pain #DVT PPLX - Lovenox #Homelessness -pt refusing SNF -ethics consult -no support PTSD Dispo: needs a SNF, cannot walk, unable to discharge safely. D/W CM....plan Subjective: Lethargic. mumbles. No complaints. Objective: Vital Signs Temp Pulse Resp BP Pulse Ox 36.7 C 81 18 117/71 88 L 03/03/18 08:00 03/03/18 11:40 03/03/18 11:40 03/03/18 11:40 03/03/18 11:40 Microbiology 02/26/18 09:35 Blood Culture - Final Blood 02/26/18 09:45 Blood Culture - Final Blood Laboratory Results 02/28/18 04:47 03/01/18 04:37 03/02/18 03/03/18 03/04/18 05:59 05:59 05:59 Intake Total 490 500 240 Output Total 500 500 Balance -10 0 240 PT 16.3 SEC (12.0-15.0) H 02/22/18 08:00 INR 1.29 (0.83-1.16) H 02/22/18 08:00 - Physical Exam Constitutional: chronically ill appearing, unkempt, cachectic Eyes: PERRL, EOMI, icteric sclera Ears, Nose, Mouth, Throat: moist mucous membranes, hearing normal, ears appear normal Cardiovascular: regular rate and rhythym, No JVD, No edema Respiratory: no respiratory distress, no rales or rhonchi, reduced air movement Gastrointestinal: normoactive bowel sounds, No tenderness, No ascites Skin: warm, abrasion, fluctuance Musculoskeletal: normal joint ROM, no joint effusions, generalized weakness Neurologic: No AAOx3 Psychiatric: poor insight, poor judgement, poor memory ICD10 Worksheet Patient Problems: Problems Problem Status Onset Cough Acute Community acquired pneumonia Acute Tobacco dependence Acute Hypoxemia Acute Alcohol withdrawal Acute Anemia Acute Alcoholic hepatitis Acute Gait instability Acute
--- NOTE | 2018-03-03 13:28 | ASMTCMCOM ---
CM Note CM Note Notes: CM spoke to NAOMI Miller regarding d/c POC. CM met w/ pt for dispo planning. Pt is unresponsive when CM asked pt questions. CM asked if pt had friends or family she could contact and pt did not respond. Angela has deemed pt non decisional. Ethics has been consulted to do a proxy search. CM spoke to Macey about this case. CM completed the ULTC-100 and faxed it. A copy of the ULTC-100 is in pts chart and has been faxed attached into [employer]. CM to follow. Plan: TBD Date Signed: 03/03/2018 01:27 PM Electronically Signed By:CELIA Helm
[2018-03-03] MEDS: ACETAMINOPHEN 325 MG TAB PO PRN (22:05)
[2018-03-03] MEDS: chlordiazePOXIDE 25 MG CAP PO PRN (23:13)
[2018-03-04] MEDS: LORazepam 1 MG TAB PO PRN ×3 (00:11→09:16)
[2018-03-04] MEDS: AMOXICILLIN/CLAVULANATE POT 875/125 MG TAB PO SCH ×2 (09:07→20:13)
[2018-03-04] MEDS: THIAMINE HCL 100 MG TAB PO SCH (09:08)
[2018-03-04] MEDS: NICOTINE 21 MG/24 HR PATCH TD SCH (09:09)
[2018-03-04] MEDS: FOLIC ACID 1 MG TAB PO SCH (09:09)
[2018-03-04] MEDS: MULTIVITAMINS 1 EACH TAB PO SCH (09:11)
[2018-03-04] MEDS: SENNOSIDES/DOCUSATE SODIUM TAB PO SCH ×2 (09:11→20:12)
[2018-03-04] MEDS: ENOXAPARIN 40 MG/0.4 ML SYR SC SCH (09:23)
[2018-03-04] MEDS ORDERED: IBUPROFEN 200 MG TAB PO PRN (15:09)
[2018-03-04] MEDS ORDERED: HALOPERIDOL LACT 5 MG/ML INJ IVP PRN (15:36)
--- NOTE | 2018-03-04 16:07 | HOSPPROG ---
Hospitalist Progress Note Assessment/Plan: Assessment: 52 yo M acute alcohol withdraw c/b acute encephalopathy and acute alcoholic hepatitis Plan: # Acute alcohol withdrawal. Resolved, DC CIWA and remove benzos from profile to prevent worsening mental status # Possible Aspiration Pneumonia. CXR w/ bilat LLL subtle infiltrates, fever, likely aspiration w/ poor mentation -D5/7 Abx # Acute atelectasis. Present on CXR (personally interpreted), IS # Acute Encephalopathy. Evidenced by global brain dysfunction characterized as somnolence, wild fluctuations in affect and attention, seemingly an acute change from his baseline, likely multifactoral and 2/2 combination of toxic effects of infxn, medication-effect used to tx withdraw as well as metabolic effects of withdraw, hyponatremia and an element of psychosis -repeat head CT neg for acute abnormality -avoid mind altering Rx -add HS zyprexa to reduce psychotic features -challenging capacity exam today given patient's somnolence s/p ativan which was required for his aggressive and dangerous behavior # Reported hx of Schizoaffective disorder. Unclear how reliable this hx is, order outside records from [facility] to determine whether patient has been treated, not currently on Rx -starting Zyprexa -will consider psych consult in AM if remains tenuous # Gait instability / Falls. Multiple injuries, but no fractures, likely related to etoh withdrawal -currently requires complete assist ADLs, refusing SNF # Transaminitis. Likely combination of acute alcoholic hepatitis + HCV -will require ID f/u for active HCV -get RUQ US to r/o portal vein thrombus and repeat liver panel, given significant RUQ tenderness on exam w/ hepatomegaly # Anemia / Thrombocytopenia. Likely BM suppression 2/2 etoh abuse, no e/o active bleeding, OB neg # Hyponatremia. Acute, hypovolemic, resolved with NS # Hypertension. Likely related to w/d, improved # Pedal edema. Unclear etiology, r/o DVT -start lasix 20mg bid # Neuropathy. Holding gabapentin given mental status PPLX - Lovenox Diet - As meghan Code - Full Dispo - ADD uncertain, has yet to medically stabilize from a cognitive or physical standpoint Subjective: patient reports pain in legs and abd Objective: Vital Signs Temp Pulse Resp BP Pulse Ox 36.9 C 90 18 114/73 91 L 03/04/18 13:13 03/04/18 13:13 03/04/18 13:13 03/04/18 13:13 03/04/18 13:13 Microbiology 02/26/18 09:35 Blood Culture - Final Blood 02/26/18 09:45 Blood Culture - Final Blood Laboratory Results 02/28/18 04:47 03/01/18 04:37 03/03/18 03/04/18 03/05/18 05:59 05:59 05:59 Intake Total 500 740 Output Total 500 903 Balance 0 -163 PT 16.3 SEC (12.0-15.0) H 02/22/18 08:00 INR 1.29 (0.83-1.16) H 02/22/18 08:00 - Physical Exam Constitutional: no apparent distress, chronically ill appearing, uncomfortable, unkempt Eyes: PERRL, EOMI, other (L sclera hemorrhage) Cardiovascular: regular rate and rhythym, no murmur, rub, or gallop, edema (1+ RLE, trace LLE) Respiratory: reduced air movement (bilat bases), inspiratory crackles (bilat bases), No expiratory wheeze, No bronchial breath sounds Gastrointestinal: normoactive bowel sounds, tenderness (RUQ), other ( hepatomegally), No distension Skin: other (hematoma L suprapalpebral, scattered ecchymoses) Neurologic: other (AAOx2 (person and place)), No facial droop Psychiatric: not anxious, flat affect, poor insight, poor memory, other ( concentration 7/7), No agitated ICD10 Worksheet Patient Problems: Problems Problem Status Onset Cough Acute Community acquired pneumonia Acute Tobacco dependence Acute Hypoxemia Acute Alcohol withdrawal Acute Anemia Acute Alcoholic hepatitis Acute Gait instability Acute
[2018-03-04 17:27] LABS: PLATELET COUNT 196 10^3/uL (150-400)
[2018-03-04] MEDS ORDERED: OLANZapine DISINTEGR 10 MG TAB PO SCH (21:00)
[2018-03-05 05:49] LABS: INR 1.39 (0.83-1.16); PROTIME(PATIENT) 17.2 SEC (12.0-15.0)
[2018-03-05 06:08] LABS: CREATINE KINASE 20 IU/L (0-224)
[2018-03-05 07:58] VITALS: BP 126/77
[2018-03-05] MEDS: FUROSEMIDE 20 MG TAB PO SCH ×3 (08:16→15:06)
[2018-03-05] MEDS: AMOXICILLIN/CLAVULANATE POT 875/125 MG TAB PO SCH ×3 (08:16→08:25)
[2018-03-05] MEDS: MULTIVITAMINS 1 EACH TAB PO SCH ×2 (08:17→08:25)
[2018-03-05] MEDS: SENNOSIDES/DOCUSATE SODIUM TAB PO SCH (08:17)
[2018-03-05] MEDS: NICOTINE 21 MG/24 HR PATCH TD SCH (08:17)
[2018-03-05] MEDS: ENOXAPARIN 40 MG/0.4 ML SYR SC SCH (08:17)
[2018-03-05] MEDS: FOLIC ACID 1 MG TAB PO SCH ×2 (08:17→08:25)
[2018-03-05] MEDS: THIAMINE HCL 100 MG TAB PO SCH ×2 (08:17→08:25)
--- NOTE | 2018-03-05 12:05 | ASMTCMCOM ---
BRIONNA Note BRIONNA Note Notes: BRIONNA, , and RN met with pt to discuss dc options. Pt was given the option of SNF, pt declines, does not want to go "where people don't let you go to the bathroom alone." Also does not want to go to the [facility], states they are infested with bed bugs. Pt's only option is to dc independently. BRIONNA again encouraged SNF but pt refuses to stay the 30 days and does not want a [facility] appointment. He stated that he goes to [facility] but has not been there in a while. I asked if I could call a spring encaser at [facility] for him, he declined. Pt was given a walker from Case Management office. DC Plan: Independent Date Signed: 03/05/2018 12:04 PM Electronically Signed By:Jerrica Almaguer RN
--- NOTE | 2018-03-05 15:53 | ASMTCMCOM ---
CM Note CM Note Notes: CM arranged transportation to an address given to CM by pt ([address] [place], [place] [address]th [facility]) through Medicaid transport. Confirmation # [id number]. Date Signed: 03/05/2018 03:53 PM Electronically Signed By:Jerrica Almaguer RN
[2018-03-05] MEDS ORDERED: QUEtiapine FUMARATE 200 MG TAB PO SCH (21:00)
--- NOTE | 2018-03-05 22:24 | PDDCSUM ---
Discharge Summary Discharge Summary: Date of Admission: 02/22/18 Date of Discharge: 03/05/18 Discharge Diagnosis: 1. Acute alcohol withdraw 2. Acute toxic and metabolic encephalopathy 3. Possible aspiration pneumonia 4. Acute atelectasis 5. Chronic schizoaffective disorder 6. Chronic alcoholism and abuse 7. Multiple traumatic falls 8. Acute hyponatremia 9. Acute alcoholic hepatitis 10. Chronic neuropathy 11. Chronic hypertension 12. Chronic lower extremity edema Procedures/Imaging: LE US neg for DVT RUQ US demonstrating biliary sludge/distension 2/2 hepatic dysfunction w/o stones Consultations: None Subjective: Patient beligerant and demanding pain medications, refusing care Physical Exam: SBP 120-130, HR 80, sating well on RA, Afeb o/n, chronically ill appearing, ecchymoses diffusely throughout and notably L suprapapebral w/ L conjunctiva hemorrhage, R>L 1+ bilat LE edema, dissheveled, AAOx3, angry, thought process linear, helpless disposition, defiant regarding care Labs: Cr 0.6, WBC 3,400, Hgb 10, Plts 170,000, Tbili 3.5, AST 170, ALT 76, INR 1.39, CPK 20, Phos 4.9 Hospital Course: Mr. Cesar presented w/ unsteady gait and multiple falls, as he was allegedly pursuing sobriety at the [facility]. When he presented, he was approximately 48hrs from last drink. He was placed on CIWA protocol and experienced a protracted recovery, secondary to a combination of toxic and metabolic encephalopathy which ensued. His mental status changes and obtundation were secondary to a multitude of causes including infection, medications, hyponatremia, and likely withdraw. On 03/04 we discontinued all mind altering medications and completely transitioned him off the CIWA protocol, and by 03/05 his mental status had recovered back to his baseline. He demonstrated capacity to make decisions, but was argumentative, aggressive, and uncooperative w/ reasonable care. He was significantly deconditioned s/p a week of being nearly bedbound from withdraw, and we attempted to work with him, offering the therapy modalities and ambulatory assistance, which he often refused. We offered placement at a SNF for ongoing physical rehab and he refused. We offered connecting him w/ the resources available through the care home, [facility], and [facility], and he refused. He did accept a walker, and he affirmed that he had every intention to resume consuming alcohol upon discharge, despite our recommendations that he maintain sobriety to prevent his strength/gait/neuropathy from worsening. At this juncture, there is no additional benefit to him receiving care within the hospital, and, although he may benefit from placement and support at a SNF w/ rehab, he is not amenable to this option and demonstrates the capacity to make this decision. He will be discharged w/ a new prescription for his seroquel and propranolol (which have not been filled from [facility] since 11/09), and we will continue holding his lisinopril, as he has been normotensive. Discharge medications: please see official DC med rec in chart; of note, continuing seroquel 100 AM, 300 HS; propranolol LA 80 daily; prn ibuprofen Discharge instructions: please follow-up at [facility] and [facility]; please avoid EtOH. > 30 minutes spent on direct patient care, as well as discharge planning and preparation.
[2018-03-06] MEDS ORDERED: QUEtiapine FUMARATE 100 MG TAB PO SCH (09:00)
[2018-03-06] MEDS ORDERED: PROPRANOLOL SR 80 MG CAP PO SCH (09:00)
--- NOTE | 2018-03-10 10:16 | PQFORM ---
PHYSICIAN QUERY FORM Needs Your Response This query form is being sent to you to assure this patient record is coded properly. Please respond to the question below: MANAGER SERVICING QUESTION: Dear Dr. 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 In the discharge summary it was noted the patient was "nearly bedbound for a week." After study, should the diagnosis of "Right Ischial Tuberosity pressure injury ( ulcer) stage 3, present on admission," be included in the discharge summary? __X___ Yes __ Thank you GIA Mariscal HIM/Coding Dept. [phone] INSTRUCTIONS FOR RESPONSE: Answer question by clicking on the "Edit Document" button. Move cursor to area below the stars. When complete, hit "Save." Click on the "Sign" button, then click "Sign" again. Type in your PIN and hit "Enter." MTDD
== END 2018-03-05 15:47 | disposition home or self-care (01) | DRG 775 ==
LOC: EDUNIT# → F3E 10:25 → F2N 13:46 → F3E 02-26 15:24
PROVIDERS: ADMIT Hospitalist; ATTEND Hospitalist
DX: F10.232 Alcohol dependence with withdrawal with perceptual disturbance (principal); J69.0 Pneumonitis due to inhalation of food and vomit; G92 Toxic encephalopathy; L89.313 Pressure ulcer of right buttock, stage 3; D61.818 Other pancytopenia; L89.320 Pressure ulcer of left buttock, unstageable; K70.10 Alcoholic hepatitis without ascites; E87.1 Hypo-osmolality and hyponatremia; E11.9 Type 2 diabetes mellitus without complications; E86.9 Volume depletion, unspecified; R29.6 Repeated falls; B19.20 Unspecified viral hepatitis C without hepatic coma; I10 Essential (primary) hypertension; Z59.0 Homelessness; F31.9 Bipolar disorder, unspecified; F43.10 Post-traumatic stress disorder, unspecified; J98.11 Atelectasis; F25.8 Other schizoaffective disorders; G62.9 Polyneuropathy, unspecified
CPT/HCPCS: 84120-90; 96374; 97110-GP; 97116-GP; 97162-GP; 97166-GO; 97530-GO; 97530-GP; 97535-GO; J1650; J2060; J2405; J3411; J3475; J3480

== ENCOUNTER 2018-03-05 20:03 | Emergency (ER) | payer MEDICAID ==
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
[2018-03-05 20:57] LABS: PLATELET COUNT 239 10^3/uL (150-400)
[2018-03-06] MEDS ORDERED: OLANZapine DISINTEGR 10 MG TAB ONE (00:49)
[2018-03-06] MEDS ORDERED: OLANZapine 5 MG TAB PO ONE ×2 (00:55→00:56)
[2018-03-06 10:07] VITALS: BP 114/77
--- NOTE | 2018-03-06 10:13 | ASMTCMCOM ---
CM Note CM Note Notes: 03/06/2018 Case Management Note Met w/pt to discuss discharge needs. Pt refused any assistance from case management. Pt declined SNF stay, assisted living placement, appointments with [facility] or [facility]. Per discharging immigration case worker from recent in patient admission this week, [facility] was to see pt on 03/05 to assess for ULTC 100 SNF stay. However pt had discharged prior to [facility] assessing pt. Today pt stated he would not stay for 30 days "anywhere" and that life on the street was preferable to any housing option offered. Pt declined assistance with coordinated entry and the [facility]. Case Management d/c poc: to street independently. Date Signed: 03/06/2018 10:12 AM Electronically Signed By:Reema Rios RN
--- NOTE | 2018-03-06 10:38 | ASDISCHSUM ---
Discharge Information Plan Status:Homeless/Correction Medically Cleared to Leave:03/06/2018 Discharge Date:03/06/2018 10:13 AM CM D/C Disposition:Home, Routine, Self-Care ADT D/C Disposition:Home, Routine, Self-Care Projected Discharge Date:03/06/2018 10:13 AM Transportation at D/C:Self Discharge Delay Reason: Follow-Up Date:03/06/2018 10:13 AM Discharge Slot: Final Diagnosis: Placement Information Patient Contact Information Contact Name:BERNIEEdward Relationship: Address: Home Phone: Work Phone: City: Alternate Phone: State/Clarit[place] Code: Email: Financial Information Financial Class:Medicaid Primary Plan Desc:[employer] Primary Plan Number:[id number] Secondary Plan Desc: Secondary Plan Number: Assessment Information [facility] CM Progress Note CM Note CM Note Notes: 03/06/2018 Case Management Note Met w/pt to discuss discharge needs. Pt refused any assistance from case management. Pt declined SNF stay, assisted living placement, appointments with [facility] or [facility]. Per discharging foster care case manager from recent in patient admission this week, [facility] was to see pt on 03/05 to assess for ULTC 100 SNF stay. However pt had discharged prior to [facility] assessing pt. Today pt stated he would not stay for 30 days "anywhere" and that life on the street was preferable to any housing option offered. Pt declined assistance with coordinated entry and the [facility]. Case Management d/c poc: to street independently. Date Signed: 03/06/2018 10:12 AM Electronically Signed By:Reema Rios RN Intervention Information
--- NOTE | 2018-03-06 11:22 | ASMTLACE ---
OSMANI Comorbidities - select Answers: Coronary Artery Disease all that apply Other Notes: hepatitis C, HTN, bipolar, schizo aff ective , ETOH abuse, porphyria # of Emergency department Answers: 12+ visits in the last 6 months Social determinants Answers: History of substance abuse (ETOH, street drugs, prescription drugs, etc.) Homelessness (street, [facility]) Mental health diagnosis (anxiety, depression, pers onality disorders, etc.) Score: 18 Date Signed: 03/06/2018 11:22 AM Electronically Signed By:Reema Rios RN
== END 2018-03-06 10:13 | disposition home or self-care (01) ==
LOC: EDUNIT#
DX: R26.89 Other abnormalities of gait and mobility (principal); I10 Essential (primary) hypertension; Z87.891 Personal history of nicotine dependence

== ENCOUNTER 2018-03-07 16:27 | Emergency (ER) | payer MEDICAID ==
[2018-03-07 16:44] VITALS: BP 116/69
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
== END 2018-03-07 17:02 ==
LOC: EDUNIT#
DX: S90.811A Abrasion, right foot, initial encounter (principal); I10 Essential (primary) hypertension; F17.200 Nicotine dependence, unspecified, uncomplicated; X58.XXXA Exposure to other specified factors, initial encounter; Y92.410 Unspecified street and highway as the place of occurrence of the external cause; Y99.8 Other external cause status; Y93.89 Activity, other specified

== ENCOUNTER 2018-03-19 20:21 | Inpatient (IN) | payer MEDICAID ==
--- NOTE | 2018-03-19 20:40 | EDPHY ---
HPI/HX/ROS/PE/MDM Narrative: CHIEF COMPLAINT: Frequent falling HISTORY OF PRESENT ILLNESS: The patient is a homeless 52 y/o male with a history of alcoholism and encephalopathy complaining of a fall. He was discharged from the hospital this morning after an extended admission for cellulitis of the right big toe as well as severe alcohol withdrawal. Physical therapy note from the time discharge reported that patient was able to walk a rdecent distance with a walker. He had been ambulating. He would be going to [facility]. After his discharge, he went and drank what he reports to be a single shot and then played video games all day. This evening, he was walking with his walker when he fell. He remembers the start of his fall and then walking up on the ground. He reports associated confusion, and intermittent difficulty seeing. He also has blood in his mouth but is unsure why. No fever, chills, chest pain, shortness of breath, palpitations, vomiting, diarrhea, urinary complaints, headache, lightheadedness. REVIEW OF SYSTEMS: Aside from elements discussed in the HPI, a comprehensive 10-point review of systems was reviewed and is negative. PAST MEDICAL HISTORY: Alcoholism, encephalopathy, aspiration pneumonia, atelectasis, schizoaffective disorder, multiple traumatic falls, hyponatremia, hepatitis, neuropathy, lower extremity edema, hypertension SOCIAL HISTORY: Homeless, alcoholism, medicaid patient, everyday smoker VITAL SIGNS: Reviewed by me GENERAL: Slightly disheveled, not tremorous. No respiratory distress. Reports he feels weak and is unable to walk. HEENT: Atraumatic. Eyes: No icterus, no injection. Mouth: Dry blood on the side of the lips, no clear source identified. Moist mucous membranes. No erythema or lesions. Neck: supple with no adenopathy. LUNGS: Clear to auscultation bilaterally, no wheezes, rhonchi or rales. CARDIAC: Regular rate and rhythm, no rubs, murmurs or gallops. ABDOMEN: Soft, nontender, nondistended, bowel sounds normal. BACK: No CVA tenderness. EXTREMITIES: No trauma. No edema. Range of motion is normal throughout. NEURO: Alert and oriented to person and place. SKIN: Warm and dry, no rash. PSYCHIATRIC: Normal mentation, no agitation. ED Course: 52-year-old gentleman who was discharged from the hospital earlier today. Patient had had a prolonged stay for toe infection, and alcohol withdrawal. He also has had some issues with gait. According to the discharge summary the patient was discharged with a walker and was to take by cab to [facility]. Patient's head CT and cervical spine CT were negative for acute trauma. I attempted to ambulate the patient after he returned from CT scan. Patient is very weak, unable to stand at the bedside, seems to want to fall to the left side. Possibility of Wernicke's encephalopathy was entertained. Patient received thiamine 100 mg p.o. He certainly is confused, reports intermittent problems with his vision "going in and out" and has incontinence as well as significant gait issues. Patient's labs demonstrate a elevated LFTs, which seemed to be at the patient's baseline. Largely unremarkable electrolytes. Alcohol level 0. Of note his lipase is quite elevated at 1300. He does not appear to be in alcohol withdrawal at this time. Patient will need to be admitted to the hospital given his recent fall despite the use of a walker. 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 H He is able to stand with significant assistance and is not able to take even 1 step on his own. Course was discussed with Dr. Daryl Berger. Patient will be readmitted to the hospital. MDM: Differential diagnoses for the patient's symptom complex was considered including but not limited to electrolyte abnormalities, deconditioning, drug or alcohol effects, neuropathy, Wernicke's encephalopathy. - Data Points Imaging Results: CT head and c spine Impression: 1. No acute intracranial process or cervical spine fracture/subluxation. 2. Age advanced generalized cerebral volume loss. 3. Degenerative changes of the cervical spine. 4. Paranasal sinus disease. Findings and recommendations discussed with Anuaj Lake MD at 2113 hour, . Dictated By: Melissa Madrigal MD Laboratory Results: Laboratory Results 03/20/18 04:17 03/20/18 04:17 Medications Given: Lisinopril/HCTZ (Zestoretic) 2 ea PO DAILY [facility] Stop: 09/17/18 08:59 Last Admin: 03/22/18 07:44 Dose: 2 ea Thiamine HCl 500 mg/ Sodium (Chloride) 105 mls @ 210 mls/hr IV DAILY [facility] Stop: 09/16/18 08:59 Last Admin: 03/22/18 10:20 Dose: 105 mls Ibuprofen (Motrin) 600 mg PO Q6HRS PRN PRN Reason: Pain, Mild Stop: 09/16/18 21:34 Last Admin: 03/21/18 20:21 Dose: 600 mg Propranolol HCl (Inderal La) 80 mg PO DAILY [facility] Stop: 09/17/18 08:59 Last Admin: 03/22/18 07:44 Dose: 80 mg Quetiapine Fumarate (Seroquel) 100 mg PO DAILY [facility] Stop: 09/17/18 08:59 Last Admin: 03/22/18 07:44 Dose: 100 mg Quetiapine Fumarate (Seroquel) 500 mg PO HS [facility] Stop: 09/16/18 20:59 Last Admin: 03/21/18 20:21 Dose: 500 mg Discontinued Medications Thiamine HCl (Vitamin B-1) 100 mg PO [facility]NOW ONE Stop: 03/19/18 20:44 Last Admin: 03/19/18 20:47 Dose: 100 mg General Time Seen by Provider: 03/19/18 20:21 Initial Vital Signs: Initial Vital Signs Temperature (C) 36.7 C 03/19/18 20:24 Heart Rate 87 03/19/18 20:24 Respiratory Rate 18 03/19/18 20:24 Blood Pressure 136/83 H 03/19/18 20:24 O2 Sat (%) 93 03/19/18 20:24 O2 Delivery Mode Room Air Allergies/Adverse Reactions: codeine Allergy (Verified 03/05/18 20:10) ziprasidone [From Geodon] Allergy (Verified 03/05/18 20:10) Home Medications: Medication Instructions Recorded Ibuprofen [Motrin (*)] 200 mg PO Q6H PRN 03/19/18 Propranolol Sr [Inderal LA 80mg 80 mg PO DAILY 03/19/18 (*)] QUEtiapine FUMARATE [Seroquel 100 100 mg PO DAILY 03/19/18 mg (*)] QUEtiapine FUMARATE [Seroquel 100 500 mg PO HS 03/19/18 mg (*)] Lisinopril/Hydrochlorothiazide 1 each PO DAILY 03/20/18 [Zestoretic 20-25 mg Tablet] Departure - Departure Disposition: [facility] Clinical Impression: Unable to ambulate, Weakness Condition: Fair Report Scribed for: Anuja Lake Report Scribed by: Kayla Infante Date of Report: 03/19/18 Time of Report: 21:22 Physician Review and Approval Statement: Portions of this note were transcribed by a medical researcher. I personally performed a history, physical exam, medical decision making, and confirmed accuracy of information the transcribed note.
[2018-03-19] MEDS ORDERED: THIAMINE HCL 100 MG TAB PO ONE (20:43)
[2018-03-19 20:52] LABS: PLATELET COUNT 198 10^3/uL (150-400)
[2018-03-19] MEDS ORDERED: ONDANSETRON DISINTEGRATING 4 MG TAB PO PRN (22:25)
[2018-03-19] MEDS ORDERED: ACETAMINOPHEN 325 MG TAB PO PRN (22:25)
[2018-03-19] MEDS ORDERED: ONDANSETRON 4 MG/2 ML VIAL IVP PRN (22:25)
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
[2018-03-20 05:44] LABS: PLATELET COUNT 118 10^3/uL (150-400)
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
--- NOTE | 2018-03-20 09:35 | WOCRNPDOC ---
WOZAYRA Advanced Assessment Note - Skin Integrity Problem, Advanced Assess Right First Toe Dressing Type: Gauze Dressing Description: Intact, Shadowed Exudate Amount: Minimal Exudate Color: Yellow Exudate Characteristic(s): Purulent Integumentary Issue Intervention: Dressing Changed Snow Wound Tissue: Blanching Snow Wound Swelling: None Wound Bed Color: [place], Red, Yellow Wound Bed Constitution: Granulation Tissue (20%), Red/[place] - Non Granular Tissue (30%), Adhered Slough (50%) Wound Edges: Attached Site Measurement - Head-to-Toe Length X Width X Depth (cm): 3.2x2.8x0.2 Skin Integrity Problem Comment: Cleansed wound with NS and gauze. Will put in orders for silvasorb and mepilex dressing. [facility] in room for care. Wound care will round again end of next week.
[2018-03-20] MEDS: THIAMINE HCL 500 MG in NS 100 ML IV SCH (10:14)
--- NOTE | 2018-03-20 11:42 | ASMTCMCOM ---
CM Note CM Note Notes: CM reviewed Pt's chart for D/C planning. Pt is a 52 y/o, homelss male D/C'ed yesterday morning from this hospital after an extended admission for cellulitis of the right big toe. Pt has an hx of schizoaffective disorder, alcoholism with related liver disease and encephalopathy. By D/C, he had been ambulating and PT reported he was safe to walk a decent distance with a walker. The plan included him going to a reserved respite bed at [facility]. When Pt came to the ED yesterday evening he reported that after his earlier D/C he had a drink and played video games throughout the day, that evening he was walking with his walker when he fell. He remembers the start of his fall and then waking up on the ground. He reports associated confusion and intermittent difficulty seeing. He also had blood in his mouth, but was unsure why. He presently is unable to ambulate even short distances with his walker. PT and OT have been ordered. Trial high dose thiamine has been ordered for possibility of Wernicke's. CM to complete ULTC. CM to follow. D/C Plan: TBD Date Signed: 03/20/2018 11:41 AM Electronically Signed By:Yusra Saul
--- NOTE | 2018-03-20 14:21 | ASMTCMCOM ---
CM Note CM Note Notes: ULTC 100 was completed, Pt signed it and it was faxed in. Referrals sent out to SNF facilities in case vermin exterminator care is required for D/C. CM to follow. D/C Plan: TBD Date Signed: 03/20/2018 02:21 PM Electronically Signed By:Yusra Saul
--- NOTE | 2018-03-20 16:33 | HOSPPROG ---
Hospitalist Progress Note Assessment/Plan: * Etoh withdrawal -failed discharge due to weakness - readmitted within 24 hours -may not be able to return to street - may need LTC -today expresses desire to stop Etoh * Toxic/metabolic encephalopathy -mental status slowly improving -continue high dose thiamine * Schizoaffective disorder -Seroquel * HTN -propranolol, Zestoretic * Recent right foot cellulitis - s/p 10day abx complete * Right toe ulceration s/p debridement by podiatry -no evidence deeper infection -wound care Subjective: now states he wants to quit drinking Objective: Vital Signs Temp Pulse Resp BP Pulse Ox 36.9 C 75 18 102/61 94 03/20/18 15:36 03/20/18 15:36 03/20/18 15:36 03/20/18 15:36 03/20/18 15:36 Laboratory Results 03/20/18 04:17 03/20/18 04:17 03/19/18 03/20/18 03/21/18 05:59 05:59 05:59 Output Total 800 425 Balance -800 -425 - Physical Exam Constitutional: no apparent distress, appears nourished, not in pain Cardiovascular: regular rate and rhythym, no murmur, rub, or gallop Respiratory: no respiratory distress, no rales or rhonchi, clear to auscultation Gastrointestinal: normoactive bowel sounds, soft, non-tender abdomen, no palpable masses Skin: no rashes or abrasions, no fluctuance, no induration Neurologic: AAOx3, sensation intact bilaterally Psychiatric: interacting appropriately, not anxious, not encephalopathic, thought process linear ICD10 Worksheet Patient Problems: Problems Problem Status Onset Alcohol withdrawal Acute Alcoholic hepatitis Acute Alcoholic intoxication Acute Anemia Acute Community acquired pneumonia Acute Cough Acute Fever Acute Hypoxemia Acute Tobacco dependence Acute Toe infection Acute
--- NOTE | 2018-03-20 16:50 | PDMN ---
Medical Necessity Medical necessity: Change to IP, s of 03/20/18, per MD; los >2 mn for ongoing management of toxic/metabolic encephalopathy, alcohol withdrawal & weakness/ ataxia w/inability to ambulate; requiring further monitoring, high dose IV thiamine, therapies & dc planning; hx recent RLE cellulitis & R toe ulceration s /p debridement, schizoaffective disorder & homelessness
[2018-03-20] MEDS: QUEtiapine FUMARATE 100 MG TAB PO SCH (20:26)
[2018-03-20] MEDS: IBUPROFEN 600 MG TAB PO PRN (23:13)
[2018-03-21] MEDS: LISINOPRIL/HCTZ 10/12.5 MG 1 EA TAB PO SCH (07:47)
[2018-03-21] MEDS: QUEtiapine FUMARATE 100 MG TAB PO SCH ×2 (07:48→20:21)
[2018-03-21] MEDS: PROPRANOLOL SR 80 MG CAP PO SCH (07:48)
[2018-03-21] MEDS: THIAMINE HCL 500 MG in NS 100 ML IV SCH (09:34)
--- NOTE | 2018-03-21 13:43 | HOSPPROG ---
Hospitalist Progress Note Assessment/Plan: * Etoh withdrawal -failed discharge due to weakness - readmitted within 24 hours -may not be able to return to street - may need LTC -expresses desire to stop Etoh * Toxic/metabolic encephalopathy -mental status slowly improving -continue high dose thiamine * Schizoaffective disorder -Seroquel * HTN -propranolol, Zestoretic * Recent right foot cellulitis - s/p 10day abx complete. * Right toe ulceration s/p debridement by podiatry -no evidence deeper infection -wound care -Wound examined. no evidence of cellulitis Subjective: no new complaints. doesn't feel at baseline with mobility Objective: Vital Signs Temp Pulse Resp BP Pulse Ox 36.4 C 66 16 147/91 H 95 03/21/18 07:16 03/21/18 07:16 03/21/18 07:16 03/21/18 07:16 03/21/18 07:16 03/20/18 03/21/18 03/22/18 05:59 05:59 05:59 Intake Total 250 Output Total 1125 600 Balance -875 -600 - Physical Exam Constitutional: no apparent distress, appears nourished, not in pain Eyes: anicteric sclera Ears, Nose, Mouth, Throat: moist mucous membranes Cardiovascular: regular rate and rhythym, no murmur, rub, or gallop Respiratory: no respiratory distress, no rales or rhonchi, clear to auscultation Gastrointestinal: normoactive bowel sounds, soft, non-tender abdomen, no palpable masses Skin: other (right big toe - ulceration with granulation tissue) Neurologic: AAOx3 ICD10 Worksheet Patient Problems: Problems Problem Status Onset Alcohol withdrawal Acute Alcoholic hepatitis Acute Alcoholic intoxication Acute Anemia Acute Community acquired pneumonia Acute Cough Acute Fever Acute Hypoxemia Acute Tobacco dependence Acute Toe infection Acute
[2018-03-21] MEDS: IBUPROFEN 600 MG TAB PO PRN (20:21)
[2018-03-22] MEDS: QUEtiapine FUMARATE 100 MG TAB PO SCH ×2 (07:44→18:13)
[2018-03-22] MEDS: PROPRANOLOL SR 80 MG CAP PO SCH (07:44)
[2018-03-22] MEDS: LISINOPRIL/HCTZ 10/12.5 MG 1 EA TAB PO SCH (07:44)
[2018-03-22] MEDS: THIAMINE HCL 500 MG in NS 100 ML IV SCH (10:20)
--- NOTE | 2018-03-22 10:43 | HOSPPROG ---
Hospitalist Progress Note Assessment/Plan: * Etoh withdrawal -failed discharge due to weakness - readmitted within 24 hours -may not be able to return to street - may need LTC -expresses desire to stop Etoh - off benzo's * Toxic/metabolic encephalopathy -mental status slowly improving -continue high dose thiamine * Schizoaffective disorder -Seroquel * HTN -propranolol, Zestoretic * Recent right foot cellulitis - s/p 10day abx complete. * Right toe ulceration s/p debridement by podiatry -no evidence deeper infection -wound care -Wound examined. no evidence of cellulitis Subjective: no new complaints, still willing to go to rehab Objective: Vital Signs Temp Pulse Resp BP Pulse Ox 36.3 C 67 16 125/73 H 96 03/22/18 07:19 03/22/18 07:19 03/22/18 07:19 03/22/18 07:19 03/22/18 07:19 03/21/18 03/22/18 03/23/18 05:59 05:59 05:59 Intake Total 250 800 Output Total 1125 1000 Balance -875 -200 - Physical Exam Constitutional: no apparent distress, appears nourished, not in pain Eyes: anicteric sclera, EOMI Ears, Nose, Mouth, Throat: moist mucous membranes Cardiovascular: regular rate and rhythym Respiratory: no respiratory distress Neurologic: AAOx3 Psychiatric: interacting appropriately, not anxious, not encephalopathic, thought process linear ICD10 Worksheet Patient Problems: Problems Problem Status Onset Alcohol withdrawal Acute Alcoholic hepatitis Acute Alcoholic intoxication Acute Anemia Acute Community acquired pneumonia Acute Cough Acute Fever Acute Hypoxemia Acute Tobacco dependence Acute Toe infection Acute
[2018-03-22] MEDS: NICOTINE 14 MG/24 HR PATCH TD SCH (13:06)
[2018-03-23] MEDS: NICOTINE 14 MG/24 HR PATCH TD SCH (08:17)
[2018-03-23] MEDS: PROPRANOLOL SR 80 MG CAP PO SCH (08:18)
[2018-03-23] MEDS: LISINOPRIL/HCTZ 10/12.5 MG 1 EA TAB PO SCH (08:18)
[2018-03-23] MEDS: QUEtiapine FUMARATE 100 MG TAB PO SCH ×2 (08:19→17:50)
[2018-03-23] MEDS: THIAMINE HCL 500 MG in NS 100 ML IV SCH (08:19)
--- NOTE | 2018-03-23 10:00 | ASMTCMCOM ---
CM Note CM Note Notes: Pts case discussed w/ Gena, manager technical training. Several more referrals made to SNFs. [facility] reports that they will come to assess pt. Awaiting for [facility] to come assess pt. CM spoke to [facility] Data and they will submit application for LTC Medicaid. CM to follow. Plan: SNF Date Signed: 03/23/2018 09:58 AM Electronically Signed By:CELIA Helm
--- NOTE | 2018-03-23 10:53 | ASMTCMCOM ---
CM Note CM Note Notes: Gloria (P#: [phone]) from [facility] came and assessed pt and he is approved on her end. Gloria reports that pt will require a level 2 PASRR. A employment program representative from the state has 2 days to come out and assess pt. Gloria will provide the [employer] employment program representative w/ [facility] phone number. CM to follow. Date Signed: 03/23/2018 10:47 AM Electronically Signed By:CELIA Helm
[2018-03-23 12:57] LABS: GC AMPLIFICATION GENPROBE NEGATIVE (NEGATIVE)
[2018-03-23] MEDS ORDERED: DIPHENHYDRAMINE CREAM TP PRN (18:45)
[2018-03-23] MEDS ORDERED: LIDOCAINE 2% JELLY 5 ML TUBE TP PRN (18:45)
[2018-03-23] MEDS ORDERED: LIDOCAINE 2% JELLY 20 ML (UROJECT) UR ONE (18:45)
--- NOTE | 2018-03-23 18:52 | HOSPPROG ---
Hospitalist Progress Note Assessment/Plan: Assessment: 50-year-old male presenting with acute on chronic weakness in the setting of acute alcohol withdrawal Plan: * Etoh withdrawal. 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 Failed most recent discharge due to persistent, pervasive weakness -patient working w/ PT/OT -ULTC completed, received SNF eval, determination pending * Metabolic encephalopathy. Acute, 2/2 effect of EtOH withdraw, resolved -continue high dose thiamine * Schizoaffective disorder. Cont, patient amenable to receiving ongoing Seroquel * Reported hematochezia. Unwitnessed, patient reporting bloody stool, encouraged patient to share w/ RN when this happens, VS stable -check Hgb/CBC, CMP * Penile irritation. Likely 2/2 friction, STI neg -PRN lidocaine jelly + PRN benadryl cream * HTN. Chronic, tolerating propranolol, Zestoretic * Recent right foot cellulitis - s/p 10day abx complete. * Right toe ulceration s/p debridement by podiatry, wound care Diet. Regular Prophylaxis. Moderate risk, Lovenox 40 Code. Full Disposition. Anticipated discharge uncertain this time, pending [facility] facility acceptance Subjective: patient c/o blood in stool, painful penis Objective: Vital Signs Temp Pulse Resp BP Pulse Ox 36.6 C 73 16 140/83 H 96 03/23/18 16:00 03/23/18 16:00 03/23/18 16:00 03/23/18 16:00 03/23/18 16:00 03/22/18 03/23/18 03/24/18 05:59 05:59 05:59 Intake Total 800 250 Output Total 1000 225 Balance -200 -225 250 - Physical Exam Constitutional: no apparent distress, chronically ill appearing, uncomfortable, unkempt Cardiovascular: regular rate and rhythym, no murmur, rub, or gallop, edema ( trace bilat LE) Respiratory: no respiratory distress, no rales or rhonchi, clear to auscultation Gastrointestinal: normoactive bowel sounds, soft, non-tender abdomen, no palpable masses, No distension Genitourinary: other (irritated and mildly excoriated meatus w/o any other lesions on the penile shaft) Psychiatric: interacting appropriately, not anxious, not encephalopathic, thought process linear, flat affect (intense affect) ICD10 Worksheet Patient Problems: Problems Problem Status Onset Cough Acute Community acquired pneumonia Acute Tobacco dependence Acute Hypoxemia Acute Alcohol withdrawal Acute Anemia Acute Alcoholic hepatitis Acute Alcoholic intoxication Acute Fever Acute Toe infection Acute Unable to ambulate Acute Weakness Acute
[2018-03-24] MEDS: LISINOPRIL/HCTZ 10/12.5 MG 1 EA TAB PO SCH (09:09)
[2018-03-24] MEDS: QUEtiapine FUMARATE 100 MG TAB PO SCH ×2 (09:09→17:57)
[2018-03-24] MEDS: PROPRANOLOL SR 80 MG CAP PO SCH (09:10)
[2018-03-24] MEDS: NICOTINE 14 MG/24 HR PATCH TD SCH (09:10)
[2018-03-24] MEDS: THIAMINE HCL 500 MG in NS 100 ML IV SCH (09:10)
--- NOTE | 2018-03-24 11:17 | ASMTCMCOM ---
CM Note CM Note Notes: [facility] has called back to say they cannot accept the patient due to ETOH. Patient has been turned down by 39 facilities. More referrals were sent today. Macey Baumann has been alerted regarding d/c barriers. CM will follow. Date Signed: 03/24/2018 11:16 AM Electronically Signed By:Ramandeep Jones LCSW
--- NOTE | 2018-03-24 16:40 | HOSPPROG ---
Hospitalist Progress Note Assessment/Plan: Assessment: 50-year-old male presenting with acute on chronic weakness in the setting of acute alcohol withdrawal Plan: * Etoh withdrawal. 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 Failed most recent discharge due to persistent, pervasive weakness -patient working w/ PT/OT -ULTC completed, received SNF eval, determination pending -counseled patient that EtOH is likely cause, and patient voices that he would like to remain off EtOH to improve his strength/mobility -counseled patient extensively that we will continue to advocate for care at SNF on his behalf, and he reports he is very interested in pursuing care at SNF * Metabolic encephalopathy. Acute, 2/2 effect of EtOH withdraw, resolved -continue high dose thiamine * Schizoaffective disorder. Cont, patient amenable to receiving ongoing Seroquel * Reported hematochezia. Unwitnessed, Hgb stable * Penile irritation. Likely 2/2 friction, STI neg -PRN lidocaine jelly + PRN benadryl cream * HTN. Chronic, tolerating propranolol, Zestoretic * Recent right foot cellulitis - s/p 10day abx complete. * Right toe ulceration s/p debridement by podiatry, wound care Diet. Regular Prophylaxis. Moderate risk, Lovenox 40 Code. Full Disposition. Anticipated discharge uncertain this time, pending [facility] facility acceptance Subjective: patient reports ongoing feeling of weakness, penile cream helpful Objective: Vital Signs Temp Pulse Resp BP Pulse Ox 37.0 C 73 16 140/88 H 94 03/24/18 07:34 03/24/18 07:34 03/24/18 07:34 03/24/18 07:34 03/24/18 07:34 Laboratory Results 03/24/18 04:25 03/24/18 04:25 03/23/18 03/24/18 03/25/18 05:59 05:59 05:59 Intake Total 250 Output Total 225 Balance -225 250 - Time Spent With Patient Time Spent with Patient: greater than 35 minutes Time Spent with Patient: Greater than 35 minutes spent on this patients care, greater than 50% of time spent counseling, educating, and coordinating care regarding the above mentioned plan. - Physical Exam Constitutional: not in pain, chronically ill appearing, uncomfortable, unkempt Cardiovascular: regular rate and rhythym, no murmur, rub, or gallop, edema (1+ bilat LE) Respiratory: no respiratory distress, no rales or rhonchi, clear to auscultation Gastrointestinal: normoactive bowel sounds, soft, non-tender abdomen, no palpable masses Neurologic: AAOx3 Psychiatric: not encephalopathic, flat affect, poor insight, No agitated ICD10 Worksheet Patient Problems: Problems Problem Status Onset Cough Acute Community acquired pneumonia Acute Tobacco dependence Acute Hypoxemia Acute Alcohol withdrawal Acute Anemia Acute Alcoholic hepatitis Acute Alcoholic intoxication Acute Fever Acute Toe infection Acute Unable to ambulate Acute Weakness Acute
[2018-03-25] MEDS: QUEtiapine FUMARATE 100 MG TAB PO SCH ×2 (09:52→17:45)
[2018-03-25] MEDS: PROPRANOLOL SR 80 MG CAP PO SCH (09:53)
[2018-03-25] MEDS: NICOTINE 14 MG/24 HR PATCH TD SCH (09:53)
[2018-03-25] MEDS: LISINOPRIL/HCTZ 10/12.5 MG 1 EA TAB PO SCH (09:53)
[2018-03-25] MEDS: THIAMINE HCL 500 MG in NS 100 ML IV SCH (09:56)
--- NOTE | 2018-03-25 16:57 | ASMTCMCOM ---
CM Note CM Note Notes: Pts case discussed w/ Gena, manager epic and Dr. Noriega. Pt is agreeable to going to [facility], a voluntary substance abuse facility. Pt would be able to stay there to up to 3 years if approved. CM will call [facility] tomorrow and speak to [facility] about getting pt into respite. [facility] is not available for the remainder of the day. CM completed [facility] application alongside pt. CM to submit tomorrow once the test scores have been calculated. Pts case discussed in complex care meeting. [facility] will continue to follow pt. CM to follow. Plan: [facility] respite Date Signed: 03/25/2018 04:56 PM Electronically Signed By:CELIA Helm
--- NOTE | 2018-03-25 18:37 | HOSPPROG ---
Hospitalist Progress Note Assessment/Plan: Assessment: 50-year-old male presenting with acute on chronic weakness in the setting of acute alcohol withdrawal Plan: * Etoh withdrawal. Resolved -patient expresses that he would like to remain sober, and he is interested in the 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 Failed most recent discharge due to persistent, pervasive weakness -patient working w/ PT/OT -ULTC completed, received SNF eval, has b -improvement in motor strength, remains somewhat imbalanced * Metabolic encephalopathy. Acute, 2/2 effect of EtOH withdraw, resolved -continue high dose thiamine * Schizoaffective disorder. Cont, patient amenable to receiving ongoing Seroquel * Reported hematochezia. Unwitnessed, Hgb stable * Penile irritation. Likely 2/2 friction, STI neg -PRN lidocaine jelly + PRN benadryl cream * HTN. Chronic, tolerating propranolol, Zestoretic * Recent right foot cellulitis - s/p 10day abx complete. * Right toe ulceration s/p debridement by podiatry, wound care Diet. Regular Prophylaxis. Moderate risk, Lovenox 40 Code. Full Disposition. Anticipated discharge 03/27, pending [facility] and [facility] [facility] respite acceptance Subjective: patient reports willingness to participate in AA and NA Objective: Vital Signs Temp Pulse Resp BP Pulse Ox 36.8 C 76 18 115/74 94 03/25/18 14:57 03/25/18 14:57 03/25/18 14:57 03/25/18 14:57 03/25/18 14:57 Laboratory Results 03/24/18 04:25 03/24/18 04:25 03/24/18 03/25/18 03/26/18 05:59 05:59 05:59 Intake Total 250 Balance 250 - Physical Exam Constitutional: no apparent distress, not in pain, chronically ill appearing, unkempt, No uncomfortable Cardiovascular: regular rate and rhythym, no murmur, rub, or gallop, edema ( trace bilat LE) Respiratory: no respiratory distress, no rales or rhonchi, clear to auscultation Gastrointestinal: normoactive bowel sounds, tenderness (mild over liver), other (hepatomegally), No guarding, No distension Neurologic: AAOx3, No weakness (motor 5/5 bilat LE) Psychiatric: interacting appropriately, not anxious, not encephalopathic, thought process linear ICD10 Worksheet Patient Problems: Problems Problem Status Onset Cough Acute Community acquired pneumonia Acute Tobacco dependence Acute Hypoxemia Acute Alcohol withdrawal Acute Anemia Acute Alcoholic hepatitis Acute Alcoholic intoxication Acute Fever Acute Toe infection Acute Unable to ambulate Acute Weakness Acute
[2018-03-26 08:22] VITALS: BP 129/73
[2018-03-26] MEDS: QUEtiapine FUMARATE 100 MG TAB PO SCH (08:53)
[2018-03-26] MEDS: NICOTINE 14 MG/24 HR PATCH TD SCH (08:53)
[2018-03-26] MEDS: PROPRANOLOL SR 80 MG CAP PO SCH (08:53)
[2018-03-26] MEDS: LISINOPRIL/HCTZ 10/12.5 MG 1 EA TAB PO SCH (08:53)
[2018-03-26] MEDS: THIAMINE HCL 500 MG in NS 100 ML IV SCH (08:54)
--- NOTE | 2018-03-26 13:59 | ASMTDCNOTE ---
Case Management Discharge Discharge Order Complete? Answers: Yes Patient to Obtain Answers: Independently Medications Transportation Arranged Answers: Taxi - Voucher Transport will Pick (Date 03/26/2018 01:00 PM & Time) EMTALA Complete Answers: No Case Management Transport Answers: No Form Complete Faxed Final Orders Answers: No Agency/Facility Transfer Answers: No Report Printed & Faxed to Receiving Agency Family Notified Answers: No Discharge Comments Notes: Pts case discussed w/ Dr. Noriega, Macey Baumann, Gena and Azael. Pt is being discharged today. CM spoke to Oscar at [facility] and there are respite beds available. CM provided pt w/ taxi voucher to [facility] to do the intake. Pt is anxious and nervous about not being accepted. CM went over the [facility] respite program. Pt is aware that he cannot use any substances while he is there. CM provided pt w/ BRIONNA's office number along w/ Nasreen's number from [facility]. CM provided pt w/ Dee Antony's phone number. She is the municipal court navigator and knowledgeable when it comes to assisting folks with getting into [facility]. CM faxed completed [facility] application. A copy of the application will be in pts chart. CM available for changes. Plan: Independent Date Signed: 03/26/2018 01:58 PM Electronically Signed By:CELIA Helm
--- NOTE | 2018-03-26 13:59 | ASDISCHSUM ---
Discharge Information Plan Status:Home with No Needs Medically Cleared to Leave:03/26/2018 Discharge Date:03/26/2018 12:58 PM CM D/C Disposition: ADT D/C Disposition:Home, Routine, Self-Care Projected Discharge Date:03/26/2018 11:00 AM Transportation at D/C: Discharge Delay Reason: Follow-Up Date:03/26/2018 11:00 AM Discharge Slot: Final Diagnosis: Placement Information Referral Type:*Detention/SNF Referral ID:[id number] Provider Name: Address 1: Phone Number: Address 2: Fax Number: City: Selection Factors: State: Patient Contact Information Contact Name:ALIE Relationship: Address: Home Phone: Work Phone: City: [place] Phone: [facility] Code: Email: Financial Information Financial Class:Medicaid Primary Plan Desc:[facility] Primary Plan Number:[id number] Secondary Plan Desc: Secondary Plan Number: Assessment Information LACE LACE Acuity / Level of Answers: Yes Care: Did the patient have an inpatient admission? Comorbidities - select Answers: Diabetes (uncontrolled or all that apply controlled) History of falls Moderate or severe liver or renal disease Other Notes: Hepatitis C; Lower extremity edema; HTN # of Emergency department Answers: 12+ visits in the last 6 months Social determinants Answers: History of substance abuse (ETOH, street drugs, prescription drugs, etc.) Homelessness (street, senior care) History of trauma (PTSD, child abuse, domestic violence, etc.) Mental health diagnosis (anxiety, depression, pers onality disorders, etc.) Lack of community resources and/or lack of social support (no pcp, lives alone, transportation, ivan d) Score: 34 Date Signed: 03/20/2018 09:08 AM Electronically Signed By:Tamar Tapia [facility] CM Progress Note CM Note CM Note Notes: CM reviewed Pt's chart for D/C planning. Pt is a 52 y/o, homelss male D/C'ed yesterday morning from this hospital after an extended admission for cellulitis of the right big toe. Pt has an hx of schizoaffective disorder, alcoholism with related liver disease and encephalopathy. By D/C, he had been ambulating and PT reported he was safe to walk a decent distance with a walker. The plan included him going to a reserved respite bed at [facility]. When Pt came to the ED yesterday evening he reported that after his earlier D/C he had a drink and played video games throughout the day, that evening he was walking with his walker when he fell. He remembers the start of his fall and then waking up on the ground. He reports associated confusion and intermittent difficulty seeing. He also had blood in his mouth, but was unsure why. He presently is unable to ambulate even short distances with his walker. PT and OT have been ordered. Trial high dose thiamine has been ordered for possibility of Wernicke's. CM to complete ULTC. CM to follow. D/C Plan: TBD Date Signed: 03/20/2018 11:41 AM Electronically Signed By:Yusra Saul [facility] Progress Note CM Note CM Note Notes: ULTC 100 was completed, Pt signed it and it was faxed in. Referrals sent out to SNF facilities in case middle or intermediate school principal care is required for D/C. CM to follow. D/C Plan: TBD Date Signed: 03/20/2018 02:21 PM Electronically Signed By:Yusra Saul [facility] Progress Note CM Note CM Note Notes: Pts case discussed wSeveriano Avery, cafe manager. Several more referrals made to SNFs. [facility] reports that they will come to assess pt. Awaiting for [facility] to come assess pt. BRIONNA spoke to [employer] and they will submit application for [facility] Medicaid. CM to follow. Plan: SNF Date Signed: 03/23/2018 09:58 AM Electronically Signed By:CELIA Helm [facility] CM Progress Note CM Note CM Note Notes: Gloria (P#: [phone]) from [facility] came and assessed pt and he is approved on her end. Gloria reports that pt will require a level 2 PASRR. A direct sales representative from the state has 2 days to come out and assess pt. Gloria will provide the [employer] direct sales representative / [facility] phone number. CM to follow. Date Signed: 03/23/2018 10:47 AM Electronically Signed By:CELIA Helm [facility] CM Progress Note CM Note CM Note Notes: [facility] has called back to say they cannot accept the patient due to ETOH. Patient has been turned down by 39 facilities. More referrals were sent today. Macey Baumann has been alerted regarding d/c barriers. CM will follow. Date Signed: 03/24/2018 11:16 AM Electronically Signed By:Ramandeep Jones LCSW [facility] BRIONNA Progress Note CM Note CM Note Notes: Pts case discussed w/ Gena, cafe manager and Dr. Noriega. Pt is agreeable to going to [facility], a voluntary substance abuse facility. Pt would be able to stay there to up to 3 years if approved. CM will call [facility] tomorrow and speak to [facility] about getting pt into respite. [facility] is not available for the remainder of the day. CM completed [facility] application alongside pt. CM to submit tomorrow once the test scores have been calculated. Pts case discussed in complex care meeting. [facility] will continue to follow pt. CM to follow. Plan: [facility] respite Date Signed: 03/25/2018 04:56 PM Electronically Signed By:CELIA Helm Case Management Discharge Plan Note Case Management Discharge Discharge Order Complete? Answers: Yes Patient to Obtain Answers: Independently Medications Transportation Arranged Answers: Taxi - Voucher Transport will Pick (Date 03/26/2018 01:00 PM & Time) EMTALA Complete Answers: No Case Management Transport Answers: No Form Complete Faxed Final Orders Answers: No Agency/Facility Transfer Answers: No Report Printed & Faxed to Receiving Agency Family Notified Answers: No Discharge Comments Notes: Pts case discussed w/ Dr. Noriega, Macey BaumannAnnemarie. Pt is being discharged today. CM spoke to Oscar at [facility] and there are respite beds available. CM provided pt w/ taxi voucher to [facility] to do the intake. Pt is anxious and nervous about not being accepted. CM went over the [facility] respite program. Pt is aware that he cannot use any substances while he is there. CM provided pt w/ BRIONNA's office number along w/ Nasreen's number from [facility]. CM provided pt w/ Dee Antony's phone number. She is the [facility] court navigator and knowledgeable when it comes to assisting folks with getting into [facility]. CM faxed completed [facility] application. A copy of the application will be in pts chart. CM available for changes. Plan: Independent Date Signed: 03/26/2018 01:58 PM Electronically Signed By:CELIA Helm Intervention Information
--- NOTE | 2018-03-26 18:08 | PDDCSUM ---
Discharge Summary Discharge Summary: DISCHARGE SUMMARY FOLLOW-UP ITEMS: Outpatient hepatic enzyme reassessment DATE OF ADMISSION: 03/19/2018 DATE OF DISCHARGE: 03/26/2018 DISCHARGE DIAGNOSES: 1. Acute alcohol withdrawal 2. 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 Acute metabolic encephalopathy 4. Chronic schizoaffective disorder 5. Chronic hypertension 6. Right toe ulceration CONSULTATIONS: Wound care PROCEDURES / IMAGING: None CHIEF COMPLAINT: Generalized weakness SUBJECTIVE: Patient is feeling well at time discharge, he is optimistic about his commitment to discontinue alcohol and to thrive in the [facility] respite program PHYSICAL EXAM ON DISCHARGE: Systolic blood pressure 100-130, afebrile overnight, alert awake oriented x3, not tremulous, disheveled, some ecchymoses on face present LABS ON DISCHARGE: AST 200, ALT 110, alk-phos 210, albumin 2.9, total bilirubin 1.0, creatinine 0.7 , potassium 3.9 HOSPITAL COURSE BY PROBLEM: The patient presented with acute alcohol withdrawal and expression that he would like to remain sober. He was placed on CIWA protocol received Ativan as needed. He was also experiencing acute generalized weakness secondary to suspected alcohol induced myopathy and he had most recently declined [facility] facility placement or ongoing physical therapy. On his presentation, the patient was requesting therapy as well as physical and alcohol rehab, and after he was completely detoxed and had worked appropriately with physical therapy, he was appropriate for the [facility] respite program. The patient is being discharged this program where he will receive ongoing care for his underlying mental health issues, polysubstance counseling, as well as transition back into the community. The patient has chronic hypertension and was continued on his home medications, scripts provided. He has also recent debridement by Podiatry, had wound care for his right toe ulceration. DISCHARGE MEDICATIONS: Please see official discharge medication reconciliation sheet in chart , lisinopril, propranolol, Seroquel, nicotine patch. DISCHARGE INSTRUCTIONS: Please remain sober, follow up with [facility] providers as well as [facility]. Please have outpatient liver enzymes repeated. TIME SPENT: Greater than 30 minutes were spent on direct patient care, as well as discharge planning and preparation.
== END 2018-03-26 12:58 | disposition home or self-care (01) | DRG 58 ==
LOC: EDUNIT# → INTOOBSV 21:18 → F3E 22:53 → OBSVTOIN 03-20 16:28
PROVIDERS: ADMIT Student in an Organized Health Care Education/Training Program; ATTEND Internal Medicine
DX: G72.1 Alcoholic myopathy (principal); F10.239 Alcohol dependence with withdrawal, unspecified; F25.9 Schizoaffective disorder, unspecified; G62.1 Alcoholic polyneuropathy; I10 Essential (primary) hypertension; R53.1 Weakness; E11.9 Type 2 diabetes mellitus without complications; L97.509 Non-pressure chronic ulcer of other part of unspecified foot with unspecified severity; N48.89 Other specified disorders of penis; Z59.0 Homelessness
CPT/HCPCS: 96365; 97116-GP; 97161-GP; 97162-GP; 97165-GO; 97166-GO; 97530-GO; 97530-GP; 97535-GO; G0378; G0480; G8987-GO-CK; G8988-GO-CI; J0690; J0696; J1650; J1815; J2060; J3370; J3411; J3480

== ENCOUNTER 2018-06-24 14:19 | Inpatient (IN) | payer MEDICAID, OTHER ==
[2018-06-24] MEDS ORDERED: NS 1,000 ML IV ONE (14:37)
--- NOTE | 2018-06-24 14:38 | EDPHY ---
General - History Smoking Status: Current every day smoker Time Seen by Provider: 06/24/18 14:26 Narrative: CHIEF COMPLAINT: Hallucination HISTORY OF PRESENT ILLNESS: Patient presents with complaints of hallucinations, alcohol withdrawal and "they 're trying to kill me." States that he has been seen things moving. He describes seen tracks moving, faces in the floors and "the trees are moving." These have been present for nearly 2 weeks. He has also been hearing voices that are telling him they are going to kill him, and "there are 28 guys who are trying to kill me." He denies feeling suicidal but does state he "wants to hurt those 28 guys." He reports alcohol use with abrupt cessation yesterday afternoon. He is feeling shaky and as though he is withdrawing. Denies fever. Denies chest pain or shortness of breath. No headache. No abdominal pain. No vomiting. No other associated complaints or modifying factors. PSYCHIATRIC DIAGNOSES: Bipolar disorder, PTSD, schizophrenia PRIOR PSYCHIATRIC EVALUATIONS: Multiple M1/DETAINER: Detainer by me at 2:30 p.m. REVIEW OF SYSTEMS: Ten systems reviewed and are negative unless otherwise noted in the HPI EXAMINATION General Appearance: Alert, no distress. Ambulatory Head: normocephalic, atraumatic Eyes: Pupils equal and round, no conjunctival pallor or injection ENT, Mouth: Mucous membranes moist Neck: Normal inspection, supple, non-tender Respiratory: Lungs are clear to auscultation Cardiovascular: Tachycardic rate. Regular rhythm. No murmur Gastrointestinal: Abdomen is soft and nontender. Large easily reducible periumbilical hernia. Back: non-tender, no bony abnormalities Neurological: GCS 15. A&O, nonfocal, normal gait. Strength is symmetric in all 4 limbs. Skin: Warm and dry, no rash for multiple tattoos. Extremities: Nontender, no pedal edema Psychiatric: Paranoid delusions with ideas of persecution. DIFFERENTIAL DIAGNOSES: Including but not limited to paranoia, delusion, schizophrenia, bipolar disorder , schizoaffective, alcohol withdrawal, delirium tremens MDM: 2:30 p.m. Paranoid delusions with auditory and visual hallucinations over the past 2 weeks with recent abrupt alcohol cessation. The patient does appear to be in early withdrawals but not in delirium tremens. His initial CIWA score is 5 to 7. He has no chest pain. He is afebrile. No altered mentation. I have ordered p.o. Therapy for his withdrawal. I have ordered laboratory studies and we will proceed with mental health evaluation after clearance. He is in no acute distress. He is ambulating. He is cooperative. 3:30 p.m. Patient is cleared for evaluation. Vital signs have normalized. No signs of DTs or significant ETOH withdrawals. 4:15 p.m. Patient is next in line for mental evaluation. I discussed case with Dr. Santos. She will assume care of the patient at this time. Please see her note for final disposition. SUPERVISION: Patient was independently examined, but I discussed the case with my primary supervising physician Dr. Santos. (Tommy Hughes) 1944: Seen by mental health, looking for inpatient disposition 2100: signed over to Dr. Hernadez at shift change. (Cat Santos) Medical Decision Makin:30 p.m. Patient accepted to [address] [place] [address] Milner. Transfer paperwork completed. (Edgar Hernadez) - Objective Vital Signs: Initial Vital Signs Temperature (C) 36.6 C 06/24/18 14:19 Heart Rate 112 H 06/24/18 14:19 Respiratory Rate 16 06/24/18 14:19 Blood Pressure 183/100 H 06/24/18 14:19 O2 Sat (%) 96 06/24/18 14:19 O2 Delivery Mode Room Air Allergies/Adverse Reactions: codeine Allergy (Verified 04/21/18 11:07) ziprasidone [From Geodon] Allergy (Verified 04/21/18 11:07) Home Medications: Medication Instructions Recorded Ibuprofen [Motrin (*)] 200 mg PO Q6H PRN 03/19/18 Lisinopril/Hydrochlorothiazide 1 each PO DAILY #30 tablet 03/26/18 [Zestoretic 20-25 mg Tablet] Gabapentin [Neurontin 100 MG (*)] 200 mg PO TID 06/24/18 Nicotine [Nicoderm Cq 14 mg (*)] 14 mg TD DAILY PRN 06/24/18 QUEtiapine FUMARATE [Seroquel 300 mg PO HS 06/24/18 300mg (*)] Acetaminophen [Tylenol 325mg (*)] 650 mg PO Q4HRS PRN tab 06/25/18 Folic Acid [Folic Acid 1 MG (*)] 1 mg PO DAILY tab 06/25/18 Ibuprofen [Motrin (*)] 400 mg PO Q6HRS PRN tab 06/25/18 Multivitamins [Multivitamin (*)] 1 each PO DAILY tab 06/25/18 Thiamine HCl [Vitamin B-1] 100 mg PO DAILY tab 06/25/18 Laboratory Results: Laboratory Results 06/24/18 14:10 06/24/18 14:10 Medications Given: Discontinued Medications Chlordiazepoxide HCl (Librium) 50 mg PO EDNOW ONE Stop: 06/24/18 14:42 Last Admin: 06/24/18 14:43 Dose: 50 mg Chlordiazepoxide HCl (Librium) 25 mg PO TID ENZO Stop: 12/22/18 08:59 Last Admin: 06/25/18 08:23 Dose: 25 mg Folic Acid (Folic Acid) 1 mg PO DAILY ENZO Stop: 12/22/18 08:59 Last Admin: 06/25/18 12:07 Dose: Not Given Gabapentin (Neurontin) 400 mg PO TID ENZO Stop: 12/21/18 21:59 Last Admin: 06/24/18 20:45 Dose: 400 mg Gabapentin (Neurontin) 400 mg PO TID ENZO Stop: 12/22/18 01:37 Last Admin: 06/25/18 08:23 Dose: 400 mg Sodium Chloride (Ns) 1,000 mls @ 0 mls/hr IV EDNOW ONE; Wide Open PRN Reason: Protocol Stop: 06/24/18 14:38 Last Admin: 06/24/18 14:42 Dose: 1,000 mls Multivitamins (Tab-A-Alber) 1 each PO DAILY ENZO Stop: 12/22/18 08:59 Last Admin: 06/25/18 12:07 Dose: Not Given Nicotine (Nicoderm Cq) 21 mg TD ONCE ONE Stop: 06/24/18 20:59 Last Admin: 06/24/18 21:03 Dose: 21 mg Quetiapine Fumarate (Seroquel) 300 mg PO DAILY ENZO Stop: 12/21/18 20:30 Last Admin: 06/24/18 22:00 Dose: 300 mg Thiamine HCl (Vitamin B-1) 100 mg PO DAILY [facility] Stop: 06/27/18 09:01 Last Admin: 06/25/18 12:07 Dose: Not Given Thiamine HCl (Vitamin B-1) 100 mg PO ONCE ONE Stop: 06/25/18 01:39 Last Admin: 06/25/18 01:52 Dose: Not Given Departure - Departure Disposition: [facility] IP Clinical Impression: Psychosis, Alcohol dependence in controlled environment Condition: Good
[2018-06-24] MEDS ORDERED: chlordiazePOXIDE 25 MG CAP ONE (14:40)
[2018-06-24] MEDS ORDERED: chlordiazePOXIDE 25 MG CAP PO ONE (14:41)
[2018-06-24 14:50] LABS: PLATELET COUNT 150 10^3/uL (150-400)
[2018-06-24] MEDS ORDERED: QUEtiapine FUMARATE 300 MG TAB PO SCH (20:00)
[2018-06-24] MEDS ORDERED: NICOTINE 21 MG/24 HR PATCH TD ONE (20:58)
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
--- NOTE | 2018-06-24 21:52 | ASMTTCLDSP ---
[facility] Discharge Disposition Disposition: Answers: Admit Discharge Concerns/Recommendations: Notes: In consultation with [facility] ED physician, Dr Danielle MD ,and on-call psychiatrist,Dr Milner, both concurred that Pt appears to meet 27-65 criteria requiring psychiatric hospitalization as Pt appears to be at risk due to grave disability due to a mental illness condition. Pt was given the [facility] prohibited belongings list while in the ED. Was patient given the Answers: Yes Inpatient Behavioral Health Prohibited Belongings List while in the ED? For inpatient Dr Alf MD admission, the following psychiatrist agreed to accept patient for admission to Behavioral Health ([facility]): Type of Hold: Answers: M1/72-hour Hold Hold initiated by: Answers: Other Notes: [facility] alteration manager Date Signed: 06/24/2018 09:51 PM Electronically Signed By:Yusra Saul
[2018-06-24] MEDS ORDERED: GABAPENTIN 400 MG CAP PO SCH (22:00)
[2018-06-25] MEDS ORDERED: IBUPROFEN 200 MG TAB PO PRN (01:38)
[2018-06-25] MEDS ORDERED: MAGNESIUM HYDROXIDE 30 ML UDCUP PO PRN (01:38)
[2018-06-25] MEDS ORDERED: MAG HYDROX/AL HYDROX/SIMETH 30 ML UDCUP PO PRN (01:38)
[2018-06-25] MEDS ORDERED: THIAMINE HCL 100 MG TAB PO ONE (01:38)
[2018-06-25] MEDS ORDERED: PROMETHAZINE HCL 25 MG TAB PO PRN (01:38)
[2018-06-25] MEDS ORDERED: NICOTINE POLACRILEX 2 MG GUM B PRN (01:38)
[2018-06-25] MEDS ORDERED: chlordiazePOXIDE 25 MG CAP PO PRN ×2 (01:38→07:43)
[2018-06-25] MEDS ORDERED: PROMETHAZINE HCL 25 MG SUPPR PR PRN (01:38)
[2018-06-25] MEDS ORDERED: ACETAMINOPHEN 325 MG TAB PO PRN (01:38)
[2018-06-25] MEDS: GABAPENTIN 400 MG CAP PO SCH ×2 (01:52→08:23)
[2018-06-25 06:57] VITALS: BP 119/67
--- NOTE | 2018-06-25 07:56 | GHP ---
DATE OF ADMISSION: 06/25/2018 CHIEF COMPLAINT: Hallucinations. HISTORY: This is a 53-year-old man with a past medical history that includes schizoaffective disorde r, bipolar type, as well as PTSD and hypertension, who presents with reports of 2 weeks of seeing and hearing things that he believes are not there. Patient notes that he is seeing "giant heads." He h as been having auditory hallucinations of people talking, although he is often times not certain what exactly they are saying and he denies that these are command hallucinations. He has had some concer ns that people are trying to kill him, though he acknowledges that he is not sure if this is real or if he is just imagining it. He otherwise denies any health complaints including chest pain, shortnes s of breath, nausea, vomiting, changes in urination. He does admit to using methamphetamine about 4 days ago, although he states that in general he has been trying not to use drugs anymore and has near ly quit for the most part. PAST MEDICAL HISTORY: Includes: 1. Schizoaffective disorder, bipolar type. 2. PTSD. 3. Hypertension. 4. History of heavy alcohol use. 5. Polysubstance abuse. PAST SURGICAL HISTORY: Includes hernia repair. FAMILY HISTORY: Mother with Alzheimer's. Various family members with different types of cancer. SOCIAL HISTORY: Patient is a current smoker. He has a history of polysubstance abuse. Admits to us ing meth 4 days ago. History of heavy cocaine use and heavy alcohol use but states he has been cutti ng down on all those. He is originally from [place]. Currently homeless. REVIEW OF SYSTEMS: 10-point review of systems obtained and negative except as per HPI. MEDICATIONS: 1. Gabapentin. 2. Quetiapine. 3. Lisinopril/hydrochlorothiazide. 4. Ibuprofen. ALLERGIES: Include codeine and ziprasidone. PHYSICAL EXAM: VITAL SIGNS: BP 163/95, heart rate 90, respiratory rate 19, O2 sats 97% on room air. GENERAL APPEARANCE: This is an unkempt male. He is awake and alert. He is in no acute distress. EYES: Anicteric. HEENT: Poor dentition. Oropharynx clear. CARDIOVASCULAR: Regular rate and rhythm. No MRG. PULMONARY: CTA bilaterally. Normal work of tulio thing. ABDOMEN: Soft, nontender. Positive bowel sounds. EXTREMITIES: No clubbing, cyanosis, or edema. SKI N: Warm, dry, well perfused. NEURO/PSYCH: The patient is tangential but oriented and pleasant. CLINICAL DATA: Labs reviewed. CBC is unremarkable. Chemistry unremarkable. ASSESSMENT/PLAN: This is a 53-year-old man, past medical history of schizoaffective disorder, bipola r type, presenting with auditory and visual hallucinations. 1. Decompensated schizoaffective disorder. Patient is being brought over to behavioral health unit for medical stabilization on an M1 hold. He appears to be gravely disabled by mental illness at this point. At this time, I do not see any medical reason why any medication deemed appropriate by Psych iatry needs to be deferred. 2. Hypertension. This is uncontrolled. At home he is on lisinopril and hydrochlorothiazide but stanford mckeon has not been taking his medications given his disorganized state. Will be resumed on his home me dications. 3. Polysubstance abuse. Patient states that all of these things have been relatively in remission, although he does admit to using methamphetamine several days ago. This is likely contributing to his current mental state. No evidence of withdrawal at this time. Thank you for this consultation. Medicine will be available peripherally should the need arise arcelia mclaughlin this hospitalization. /[id number]/MODL
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
[2018-06-25] MEDS ORDERED: MULTIVITAMINS 1 EACH TAB PO SCH (09:00)
[2018-06-25] MEDS ORDERED: FOLIC ACID 1 MG TAB PO SCH (09:00)
[2018-06-25] MEDS ORDERED: THIAMINE HCL 100 MG TAB PO SCH (09:00)
[2018-06-25] MEDS ORDERED: chlordiazePOXIDE 25 MG CAP PO SCH ×2 (09:00)
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
--- NOTE | 2018-06-25 15:18 | BDS ---
REASON FOR ADMISSION: From the ED note dated 06/24/2018, the patient presented to the emergency department with complaints of hallucinations, reports of paranoia. The patient reported being followed by 28 guys that wanted to kill him. The patient reported hearing voices that these guys were going to kill him. The patient denied feeling suicidal. The patient reported recent methamphetamine use 4 days prior to presenting to the emergency department. The patient reported not sleeping well and not eating for the last 4 days prior to presenting to the emergency department. The patient was admitted involuntarily on an M1 hold due to being deemed gravely disabled. The patient was admitted for safety, crisis stabilization, and medication management. ADMITTING DIAGNOSES: 1. Stimulant-induced psychotic disorder with delusions. 2. Stimulant use disorder. 3. Stimulant withdrawal. 4. Alcohol use disorder, severe. 5. Malingering. 6. Homelessness. ADMISSION PHYSICAL EXAM: The patient was seen for a history and physical on , for medical clearance for inpatient Behavioral Health hospitalization. The patient was medically cleared for inpatient behavioral health hospitalization and psychiatric treatment and procedures. For further details, please refer to history and physical dated 06/24/2018. ADMISSION LABS: 1. CBC from 06/24/2018, within normal limits, except red blood cells were low at 4.02. Hematocrit was low at 38.6. MCH was elevated at 34.6. 2. BMP from 06/24/2018, within normal limits, except creatinine was low at 0.6. 3. Hemoglobin A1c from 06/25/2018, was within normal limits at 4.8. 4. Liver function from 06/25/2018, was within normal limits, except AST was elevated at 98, and alkaline phosphatase was elevated at 136, and total protein was elevated at 8.6. 5. Lipid panel from 06/25/2018, within normal limits. 6. Toxicology screen from 06/24/2018, non-negative for THC, negative for all other substances screened, and negative for ethyl alcohol. MAJOR PROCEDURES OR TESTS: None. HOSPITAL COURSE: The most prominent symptoms and behaviors while the patient was here were irritability and agitation due to the patient's report of not having a TV in his room. Patient signs and symptoms related to methamphetamine withdrawal. The patient reported that he was lied to, was reported that he would have a TV in his own room, and he also was upset about being around other people. Reported the hospital was like a "commune." The patient reported that none of his needs could be met from inpatient psychiatric hospitalization. The patient was monitored for alcohol withdrawal. The patient reported no symptoms of alcohol withdrawal, and patient showed no signs of alcohol withdrawal. Patient's delusions due to recent methamphetamine use have resolved. The patient's vital signs throughout the course of his hospitalization were within normal limits and stable. The patient has improved considerably with no signs of psychiatric symptoms, and patient expressing being upset and irritable and agitated at time of discharge. The patient reported to this SPRAY DRIER OPERATOR that he plans to discharge and either go to [facility] or go back to the hospital on [place] in order to be readmitted. The patient provided no reason for the need of hospitalization. There were no adverse or unexpected results of treatment during the patient's hospitalization. The patient was safe throughout his stay, was not active in treatment, did not attend groups, was irritable and agitated toward staff. The patient met with the treatment team prior to discharge to assess readiness to discharge and review discharge plan. The treatment team consensus is the patient is in stable condition, has a safe discharge plan, and is ready to discharge today. CONDITION ON DISCHARGE: The patient is in stable condition, is no longer a danger to himself or others, and is not gravely disabled due to a mental illness. The patient is no longer in need of inpatient level of care and can safely and effectively be treated within the community. The patient's level of risk at time of discharge is low. MENTAL STATUS EXAM: The patient is a well-nourished male, looking older than stated chronological age. Attire is appropriate, and dress is casual and neat and clean. Grooming status is appropriate. Ambulation is independent. Gait is normal and coordinated. Posture is normal and relaxed. Eye contact is appropriate and adequate. Motor activity is appropriate with purposeful, organized, coordinated movements. Attitude is uncooperative, guarded, defensive , indifferent, hostile and angry. The patient appears disinterested and does not relate well to this interviewer. Language production is spontaneous. Rate is fluent. Latency of response is shortened, with irritable and angry tone, high volume, and amount is appropriate. Articulation is clear. Patient reports mood as "extremely upset," with expansive, congruent, and inappropriate affect. The patient's affect is irritable and angry. The patient's thought process is linear and logical, with no loose associations, tangential thought, thought blocking, concrete thinking, or any other signs of formal thought disorder. The patient does not report suicidal/homicidal thoughts, ideas, or plans. The patient denies auditory and visual hallucinations. The patient did not report any auditory or visual hallucinations throughout the course of his hospitalization. The patient denied delusions and reported no delusions throughout the course of his hospitalization. The patient does not appear to be attending to internal stimuli, and patient did not appear to be attending to internal stimuli throughout the course of his hospitalization. The patient is oriented to person, place, time, and situation. The patient's attention and concentration are adequate. The patient's insight and judgment are poor. There is no evidence of gross cognitive dysfunction at any point during the interview and no evidence of apparent dysfunction in recent or remote memory noted. The patient does not report any undesirable side effects from medications received while being hospitalized. DISCHARGE DIAGNOSES: 1. Stimulant-induced psychotic disorder with delusions. 2. Stimulant use disorder. 3. Stimulant withdrawal. 4. Alcohol use disorder, severe. 5. Malingering. 6. Homelessness. CURRENT MEDICATIONS: patient to continue home medications, includin. Zestoretic 20-25 mg tablet, 1 each oral daily. 2. Gabapentin 200 mg p.o. t.i.d. 3. Seroquel 300 mg p.o. q.h.s. 4. NicoDerm 15 mg TD daily as needed for nicotine withdrawal cravings. DISPOSITION: Patient left hospital independently and voluntarily. Patient reports he plans to either go to [facility] or go back to [facility] in order to be rehospitalized. Patient provides no reason for need of hospitalization, and there is no indication that patient needs to be hospitalized for medical or psychiatric needs. FOLLOWUP: database coordinator reports the appropriate outpatient follow-up services have been established and outpatient appointments have been scheduled. The patient received written instructions with times and dates of outpatient follow-up appointments. The following follow-up recommendations were provided to the patient at discharge: Continue psychotropic medications as prescribed and attend appointments as scheduled. Report any side effects to a psychiatric outpatient provider, a primary care provider, or other health intensive care ambulance paramedic. Address any questions or problems concerning the psychotropic medications with a psychiatric outpatient provider, a primary care provider, or other health intensive care ambulance paramedic. Contact [facility] or [facility], or go to the nearest emergency room, if you are ever a danger to yourself/others, or unable to care for yourself. As soon as possible, establish a routine medication management treatment with a psychiatric provider, establish routine therapy appointments, and follow-up with a primary care provider. LEGAL COURSE: Patient was admitted on an M1 hold for involuntary inpatient psychiatric hospitalization. Patient discharged today independently and voluntarily. ATTITUDE AT TIME OF DISCHARGE: The patient's attitude was negative at time of discharge, and the patient reports he does not look forward to discharging today and plans to return to [facility] or go back to the emergency department at [facility] in order to be re-admitted so he can "have his own room with a TV." LABS AND RADIOLOGY STUDIES: There were no pending labs or studies at time of discharge. ADVANCE DIRECTIVES: There were no advance directives on file, and the patient was full code during this hospitalization. /[id number]/MODL MTDD
[2018-06-27] MEDS ORDERED: chlordiazePOXIDE 25 MG CAP PO SCH (09:00)
[2018-06-29] MEDS ORDERED: chlordiazePOXIDE 25 MG CAP PO SCH (09:00)
== END 2018-06-25 13:13 | disposition home or self-care (01) | DRG 897 ==
LOC: EDUNIT# → BBEH 06-25 01:13
PROVIDERS: ADMIT Psychiatry & Neurology Psychiatry; ATTEND Psychiatry & Neurology Psychiatry
DX: F15.950 Other stimulant use, unspecified with stimulant-induced psychotic disorder with delusions (principal); Z76.5 Malingerer [conscious simulation]; F10.20 Alcohol dependence, uncomplicated; E86.9 Volume depletion, unspecified; F25.0 Schizoaffective disorder, bipolar type; I10 Essential (primary) hypertension; F15.93 Other stimulant use, unspecified with withdrawal; F43.10 Post-traumatic stress disorder, unspecified; Z59.0 Homelessness; Z72.0 Tobacco use
CPT/HCPCS: 80305; G0480